=== PATIENT | female | born 1945 | race Two or more races ===

== ENCOUNTER 2017-10-24 04:23 | Inpatient (IN) | payer OTHER, MEDICAID, MEDICARE ==
[2017-10-24] MEDS: ALBUTEROL 0.083% (NEB) 2.5 MG/3 ML AMP NEB (06:21)
[2017-10-24] MEDS: IPRATROPIUM (NEB) 0.5 MG/2.5 ML AMP NEB (06:21)
[2017-10-24] MEDS: NITROGLYCERIN 2% 1 GM OINT PKT TD (06:27)
[2017-10-24 06:49] LABS: ADD MAN DIFF? NO
[2017-10-24 06:54] LABS: BASOPHIL # 0.1 10^3/ul (0.0-0.1); BASOPHILS % 0.4 % (0.0-2.0); EOSINOPHILS # 0.1 10^3/ul (0.0-0.5); HEMOGLOBIN 7.8 g/dl (12.0-16.0); LYMPHOCYTES # 0.8 10^3/ul (0.8-2.9); LYMPHOCYTES % 6.6 % (15.0-51.0); MEAN CORPUSCULAR HEMOGLOBIN 29.1 pg (29.0-33.0); MEAN CORPUSCULAR HGB CONC 31.2 g/dl (32.0-37.0); MEAN CORPUSCULAR VOLUME 93.3 fl (82.0-101.0); MEAN PLATELET VOLUME 11.7 fl (7.4-10.4); MONOCYTE # 0.5 10^3/ul (0.3-0.9); MONOCYTES % 4.2 % (0.0-11.0); NEUTROPHIL # 10.6 10^3/ul (1.6-7.5); NEUTROPHILS % 86.3 % (39.0-77.0); PLATELET COUNT 383 10^3/UL (140-415); RED BLOOD COUNT 2.68 10^6/ul (4.20-5.40); RED CELL DISTRIBUTION WIDTH 16.7 % (11.5-14.5)
[2017-10-24 06:54] LABS: WHITE BLOOD COUNT 12.2 10^3/ul (4.8-10.8)
[2017-10-24 07:10] LABS: LACTIC ACID 1.2 mmol/L (0.5-2.0)
[2017-10-24 07:12] LABS: ALANINE AMINOTRANSFERASE 59 IU/L (13-69); ALBUMIN 3.7 g/dl (3.3-4.9); ALBUMIN/GLOBULIN RATIO 0.82; ALKALINE PHOSPHATASE 195 IU/L (42-121); ANION GAP 25 (8-16); ASPARTATE AMINO TRANSFERASE 68 IU/L (15-46); BLOOD UREA NITROGEN 85 mg/dl (7-20); CALCIUM 8.2 mg/dl (8.4-10.2); CARBON DIOXIDE 20 mmol/L (21-31); CHLORIDE 110 mmol/L (97-110); CREATININE 6.37 mg/dl (0.44-1.00); GLUCOSE 95 mg/dl (70-220); POTASSIUM 4.6 mmol/L (3.5-5.1); SODIUM 150 mmol/L (135-144); TOTAL PROTEIN 8.2 g/dl (6.1-8.1)
[2017-10-24 07:16] LABS: INR 1.07; PT RATIO 1.1
[2017-10-24 07:17] LABS: PARTIAL THROMBOPLASTIN TIME 31.6 Sec (25.0-35.0)
[2017-10-24] MEDS ORDERED: hydrALAzine 20 MG INJ (07:17)
[2017-10-24] MEDS: FUROSEMIDE 40 MG INJ IV ×3 (07:19→18:09)
[2017-10-24] MEDS: hydrALAzine 20 MG INJ IV (07:20)
[2017-10-24 07:24] LABS: TROPONIN-I 0.091 ng/ml (0.00-0.12)
[2017-10-24 07:37] LABS: B-TYPE NATRIURETIC PEPTIDE 46300 PG/ML (0-125)
[2017-10-24] MEDS ORDERED: ACETAMINOPHEN 325 MG TAB PO (08:30)
[2017-10-24] MEDS ORDERED: ONDANSETRON 4 MG INJ IV (09:00)
[2017-10-24] MEDS ORDERED: NACL 0.9% 3 ML SYG IV (09:00)
[2017-10-24] MEDS: DOCUSATE SODIUM 100 MG CAP PO (10:09)
[2017-10-24] MEDS: HYDROCODONE/APAP (5/325) TAB PO ×2 (10:09→16:58)
[2017-10-24] MEDS: HEPARIN 5,000 UNIT/0.5 ML VIAL SC ×2 (10:10→20:35)
[2017-10-24] MEDS: AMLODIPINE 10 MG TAB PO (10:19)
[2017-10-24 10:45] LABS: LACTIC ACID 1.2 mmol/L (0.5-2.0)
[2017-10-24] MEDS: ONDANSETRON 4 MG INJ IV (18:08)
[2017-10-25] MEDS: ONDANSETRON 4 MG TAB PO (06:09)
[2017-10-25] MEDS: METOCLOPRAMIDE 10 MG INJ IV (06:09)
[2017-10-25] MEDS: FUROSEMIDE 40 MG INJ IV ×2 (06:10→17:26)
[2017-10-25 06:30] LABS: ADD MAN DIFF? NO
[2017-10-25 06:34] LABS: WHITE BLOOD COUNT 5.8 10^3/ul (4.8-10.8)
[2017-10-25 06:35] LABS: ABNORMAL IP MESSAGE 1; BASOPHILS % 0.3 % (0.0-2.0); EOSINOPHILS # 0.1 10^3/ul (0.0-0.5); EOSINOPHILS % 2.1 % (0.0-7.0); HEMATOCRIT 21.3 % (37.0-47.0); LYMPHOCYTES # 0.7 10^3/ul (0.8-2.9); LYMPHOCYTES % 11.6 % (15.0-51.0); MEAN CORPUSCULAR HEMOGLOBIN 28.6 pg (29.0-33.0); MEAN CORPUSCULAR HGB CONC 30.5 g/dl (32.0-37.0); MEAN CORPUSCULAR VOLUME 93.8 fl (82.0-101.0); MEAN PLATELET VOLUME 11.2 fl (7.4-10.4); MONOCYTE # 0.6 10^3/ul (0.3-0.9); NEUTROPHIL # 4.4 10^3/ul (1.6-7.5); NEUTROPHILS % 75.7 % (39.0-77.0); PLATELET COUNT 286 10^3/UL (140-415); RED BLOOD COUNT 2.27 10^6/ul (4.20-5.40); RED CELL DISTRIBUTION WIDTH 16.6 % (11.5-14.5)
[2017-10-25 06:57] LABS: ALANINE AMINOTRANSFERASE 40 IU/L (13-69); ALBUMIN 2.9 g/dl (3.3-4.9); ALKALINE PHOSPHATASE 126 IU/L (42-121); ASPARTATE AMINO TRANSFERASE 30 IU/L (15-46); TOTAL PROTEIN 6.7 g/dl (6.1-8.1)
[2017-10-25 07:00] LABS: ANION GAP 17 (8-16); BLOOD UREA NITROGEN 81 mg/dl (7-20); CALCIUM 7.9 mg/dl (8.4-10.2); CARBON DIOXIDE 23 mmol/L (21-31); CHLORIDE 108 mmol/L (97-110); CREATININE 6.04 mg/dl (0.44-1.00); GLUCOSE 88 mg/dl (70-220); MAGNESIUM 2.1 mg/dl (1.7-2.5); POTASSIUM 4.4 mmol/L (3.5-5.1); SODIUM 144 mmol/L (135-144)
[2017-10-25 07:05] LABS: POSITIVE DIFF @See below
[2017-10-25 07:07] LABS: HEMOGLOBIN 6.5 g/dl (12.0-16.0)
[2017-10-25 07:08] LABS: PATH REVIEW? YES
[2017-10-25] MEDS ORDERED: FUROSEMIDE 20 MG INJ IV (07:30)
[2017-10-25] MEDS: DOCUSATE SODIUM 100 MG CAP PO (09:20)
[2017-10-25] MEDS: AMLODIPINE 10 MG TAB PO (09:21)
[2017-10-25] MEDS: HEPARIN 5,000 UNIT/0.5 ML VIAL SC ×2 (09:26→21:33)
[2017-10-25 10:28] LABS: IMMEDIATE SPIN CROSSMATCH 1 2
[2017-10-25] MEDS: FUROSEMIDE 20 MG INJ IV (14:21)
[2017-10-25] MEDS: CALCIUM ACETATE 667 MG CAP PO (18:05)
[2017-10-25 18:30] LABS: FOLATE 18.2 ng/ml (2.8-20.0)
[2017-10-25 19:01] LABS: CREATININE,URINE RANDOM 38.62 mg/dl (20-320)
[2017-10-25 19:08] LABS: ADD UMIC YES; UR ASCORBIC ACID NEGATIVE (NEGATIVE); UR BACTERIA FEW /HPF (NONE SEEN); UR BILIRUBIN (Dip) NEGATIVE (NEGATIVE); UR BLOOD (Dip) 2+ mg/dL (NEGATIVE); UR CLARITY CLEAR (CLEAR); UR COLOR STRAW (YELLOW); UR GLUCOSE (Dip) NEGATIVE (NEGATIVE); UR KETONES (Dip) NEGATIVE (NEGATIVE); UR LEUKOCYTE ESTERASE (Dip) TRACE Leu/ul (NEGATIVE); UR NITRITE (Dip) NEGATIVE (NEGATIVE); UR RBC 32 /HPF (0-5); UR SPECIFIC GRAVITY (Dip) 1.009 (1.003-1.030); UR SQUAMOUS EPITHELIAL CELL FEW /HPF (FEW); UR TOTAL PROTEIN (Dip) 2+ mg/dl (NEGATIVE); UR UROBILINOGEN (Dip) NEGATIVE (NEGATIVE); UR WBC 2 /HPF (0-5)
[2017-10-25 19:11] LABS: SODIUM,URINE RANDOM 79 mmol/L (30-90)
[2017-10-25 19:29] LABS: OPIATES Negative (NEGATIVE)
[2017-10-25 19:41] LABS: AMPHETAMINE/METHAMPHETAMINE Negative (NEGATIVE); BARBITURATES Negative (NEGATIVE); BENZODIAZEPINES Negative (NEGATIVE)
[2017-10-25 19:42] LABS: CANNABINOIDS Negative (NEGATIVE); COCAINE Negative (NEGATIVE)
[2017-10-25] MEDS: ALBUTEROL/IPRATROPIUM (NEB) 3 ML AMP HHN (20:50)
[2017-10-26] MEDS: ALBUTEROL/IPRATROPIUM (NEB) 3 ML AMP HHN ×4 (01:14→21:00)
[2017-10-26] MEDS: FUROSEMIDE 40 MG INJ IV ×2 (06:07→17:55)
[2017-10-26 07:43] LABS: ADD MAN DIFF? NO; HAAIG REFLEX REFLEX FILED
[2017-10-26 07:51] LABS: BASOPHILS % 0.5 % (0.0-2.0); EOSINOPHILS # 0.2 10^3/ul (0.0-0.5); EOSINOPHILS % 3.2 % (0.0-7.0); HEMATOCRIT 28.6 % (37.0-47.0); HEMOGLOBIN 9.2 g/dl (12.0-16.0); LYMPHOCYTES % 16.8 % (15.0-51.0); MEAN CORPUSCULAR HEMOGLOBIN 29.6 pg (29.0-33.0); MEAN CORPUSCULAR HGB CONC 32.2 g/dl (32.0-37.0); MEAN PLATELET VOLUME 10.9 fl (7.4-10.4); MONOCYTE # 0.8 10^3/ul (0.3-0.9); MONOCYTES % 13.8 % (0.0-11.0); NEUTROPHIL # 3.9 10^3/ul (1.6-7.5); NEUTROPHILS % 65.4 % (39.0-77.0); PLATELET COUNT 285 10^3/UL (140-415); RED BLOOD COUNT 3.11 10^6/ul (4.20-5.40); RETICULOCYTE COUNT # 0.047 X10^6 (0.020-0.110); RETICULOCYTE COUNT % 1.6 % (0.5-1.5)
[2017-10-26 07:51] LABS: RETICULOCYTE RBC 3.01
[2017-10-26 08:06] LABS: IRON 54 ug/dl (35-150)
[2017-10-26 08:08] LABS: PHOSPHORUS 8.4 mg/dl (2.5-4.9)
[2017-10-26 08:08] LABS: CREATINE KINASE 70 IU/L (23-200)
[2017-10-26 08:09] LABS: URIC ACID 10.2 mg/dl (3.1-7.9)
[2017-10-26 08:09] LABS: ANION GAP 17 (8-16); BLOOD UREA NITROGEN 90 mg/dl (7-20); CALCIUM 7.6 mg/dl (8.4-10.2); CARBON DIOXIDE 25 mmol/L (21-31); CHLORIDE 107 mmol/L (97-110); CREATININE 6.62 mg/dl (0.44-1.00); GLUCOSE 87 mg/dl (70-220); SODIUM 145 mmol/L (135-144)
[2017-10-26 08:20] LABS: B-TYPE NATRIURETIC PEPTIDE 23600 PG/ML (0-125)
[2017-10-26 08:21] LABS: % IRON SATURATION 19 % SAT (22-52); TOTAL IRON BINDING CAPACITY 283 ug/dl (241-421)
[2017-10-26 08:38] LABS: HEPATITIS B SURFACE ANTIGEN NEGATIVE (NEGATIVE)
[2017-10-26 08:56] LABS: HEPATITIS C VIRAL ANTIBODY NEGATIVE (NEGATIVE)
[2017-10-26] MEDS: AMLODIPINE 10 MG TAB PO (08:59)
[2017-10-26] MEDS: DOCUSATE SODIUM 100 MG CAP PO (08:59)
[2017-10-26] MEDS: CALCIUM ACETATE 667 MG CAP PO ×3 (09:00→17:55)
[2017-10-26] MEDS: HEPARIN 5,000 UNIT/0.5 ML VIAL SC ×2 (09:01→21:39)
[2017-10-26] MEDS: HYDROCODONE/APAP (5/325) TAB PO (09:05)
[2017-10-26 13:06] LABS: HEPATITIS B CORE ANTIBODY REACTIVE (NEGATIVE)
[2017-10-26] MEDS ORDERED: TRIMETHOBENZAMIDE 100 MG/ML VIAL IM (14:30)
[2017-10-26] MEDS ORDERED: ONDANSETRON 4 MG INJ IV (15:00)
[2017-10-26] MEDS ORDERED: ONDANSETRON INJ 8 MG in DEXTROSE 5% 50 ML IV (15:00)
[2017-10-26] MEDS: POLYETHYLENE GLYCOL 17 GM PACKET PO (15:22)
[2017-10-26 15:56] LABS: CREATININE, RANDOM URINE 49 mg/dL (20-320); MICROALBUMIN 55.2 mg/dL; MICROALBUMIN/CREATININE RATIO 1127 (<30)
[2017-10-26] MEDS: ALLOPURINOL 300 MG TAB PO (17:54)
[2017-10-27] MEDS: ALBUTEROL/IPRATROPIUM (NEB) 3 ML AMP HHN ×6 (01:00→20:39)
[2017-10-27] MEDS: FUROSEMIDE 40 MG INJ IV ×2 (06:53→17:38)
[2017-10-27] MEDS: ALLOPURINOL 300 MG TAB PO (08:17)
[2017-10-27] MEDS: CALCIUM ACETATE 667 MG CAP PO ×3 (08:18→17:38)
[2017-10-27] MEDS: DOCUSATE SODIUM 100 MG CAP PO (08:18)
[2017-10-27] MEDS: AMLODIPINE 10 MG TAB PO (08:18)
[2017-10-27] MEDS: POLYETHYLENE GLYCOL 17 GM PACKET PO (08:19)
[2017-10-27] MEDS: HEPARIN 5,000 UNIT/0.5 ML VIAL SC ×2 (08:21→20:58)
[2017-10-27 08:30] LABS: ADD MAN DIFF? NO
[2017-10-27 08:33] LABS: BASOPHILS % 0.5 % (0.0-2.0); EOSINOPHILS # 0.2 10^3/ul (0.0-0.5); EOSINOPHILS % 3.6 % (0.0-7.0); HEMATOCRIT 31.4 % (37.0-47.0); HEMOGLOBIN 9.9 g/dl (12.0-16.0); LYMPHOCYTES # 0.8 10^3/ul (0.8-2.9); LYMPHOCYTES % 14.5 % (15.0-51.0); MEAN CORPUSCULAR HEMOGLOBIN 29.2 pg (29.0-33.0); MEAN CORPUSCULAR HGB CONC 31.5 g/dl (32.0-37.0); MEAN CORPUSCULAR VOLUME 92.6 fl (82.0-101.0); MEAN PLATELET VOLUME 11.1 fl (7.4-10.4); MONOCYTE # 0.7 10^3/ul (0.3-0.9); MONOCYTES % 11.4 % (0.0-11.0); NEUTROPHIL # 4.1 10^3/ul (1.6-7.5); NEUTROPHILS % 69.7 % (39.0-77.0); PLATELET COUNT 327 10^3/UL (140-415); RED BLOOD COUNT 3.39 10^6/ul (4.20-5.40); RED CELL DISTRIBUTION WIDTH 15.8 % (11.5-14.5)
[2017-10-27 08:33] LABS: WHITE BLOOD COUNT 5.8 10^3/ul (4.8-10.8)
[2017-10-27 08:55] LABS: ANION GAP 18 (8-16); BLOOD UREA NITROGEN 93 mg/dl (7-20); CALCIUM 8.4 mg/dl (8.4-10.2); CARBON DIOXIDE 28 mmol/L (21-31); CHLORIDE 104 mmol/L (97-110); CREATININE 6.65 mg/dl (0.44-1.00); GLUCOSE 92 mg/dl (70-220); POTASSIUM 4.2 mmol/L (3.5-5.1); SODIUM 146 mmol/L (135-144)
[2017-10-27 12:22] LABS: INR 1.07; PT RATIO 1.1
[2017-10-27] MEDS ORDERED: SODIUM CHLORIDE 0.9% 1L BAG IV (12:30)
[2017-10-27] MEDS ORDERED: ALBUMIN HUMAN 25% 50 ML IV (12:30)
[2017-10-27] MEDS ORDERED: MANNITOL 25% 50 ML IV (12:30)
[2017-10-27] MEDS ORDERED: HEPARIN 1000 UNITS/ML 10 ML INJ CATHETER (12:30)
[2017-10-27] MEDS: GUAIFENESIN 20 MG/ML 5ML CUP PO (13:03)
[2017-10-27] MEDS: CEPASTAT LOZENGE MT (20:53)
[2017-10-28] MEDS: ALBUTEROL/IPRATROPIUM (NEB) 3 ML AMP HHN ×6 (00:58→20:00)
[2017-10-28] MEDS: FUROSEMIDE 40 MG INJ IV ×2 (06:05→17:06)
[2017-10-28] MEDS: CALCIUM ACETATE 667 MG CAP PO ×3 (08:00→17:17)
[2017-10-28 08:45] LABS: ADD MAN DIFF? NO
[2017-10-28] MEDS: DOCUSATE SODIUM 100 MG CAP PO (09:00)
[2017-10-28] MEDS: AMLODIPINE 10 MG TAB PO (09:00)
[2017-10-28] MEDS: POLYETHYLENE GLYCOL 17 GM PACKET PO (09:00)
[2017-10-28] MEDS: ALLOPURINOL 300 MG TAB PO (09:00)
[2017-10-28] MEDS: HEPARIN 5,000 UNIT/0.5 ML VIAL SC ×2 (09:00→19:57)
[2017-10-28 09:06] LABS: BASOPHILS % 0.4 % (0.0-2.0); EOSINOPHILS # 0.3 10^3/ul (0.0-0.5); EOSINOPHILS % 4.6 % (0.0-7.0); HEMATOCRIT 31.9 % (37.0-47.0); LYMPHOCYTES # 0.9 10^3/ul (0.8-2.9); LYMPHOCYTES % 16.7 % (15.0-51.0); MEAN CORPUSCULAR HEMOGLOBIN 29.3 pg (29.0-33.0); MEAN CORPUSCULAR HGB CONC 31.3 g/dl (32.0-37.0); MEAN CORPUSCULAR VOLUME 93.5 fl (82.0-101.0); MEAN PLATELET VOLUME 11.1 fl (7.4-10.4); MONOCYTE # 0.7 10^3/ul (0.3-0.9); MONOCYTES % 13.2 % (0.0-11.0); NEUTROPHIL # 3.5 10^3/ul (1.6-7.5); NEUTROPHILS % 64.7 % (39.0-77.0); PLATELET COUNT 307 10^3/UL (140-415); RED BLOOD COUNT 3.41 10^6/ul (4.20-5.40); RED CELL DISTRIBUTION WIDTH 15.3 % (11.5-14.5)
[2017-10-28 09:06] LABS: WHITE BLOOD COUNT 5.4 10^3/ul (4.8-10.8)
[2017-10-28 09:24] LABS: ANION GAP 17 (8-16); BLOOD UREA NITROGEN 102 mg/dl (7-20); CALCIUM 8.6 mg/dl (8.4-10.2); CARBON DIOXIDE 27 mmol/L (21-31); CHLORIDE 103 mmol/L (97-110); CREATININE 6.66 mg/dl (0.44-1.00); GLUCOSE 87 mg/dl (70-220); POTASSIUM 4.3 mmol/L (3.5-5.1); SODIUM 143 mmol/L (135-144)
[2017-10-28] MEDS: HEPARIN 1000 UNITS/ML 10 ML INJ (13:13)
[2017-10-28] MEDS: SOD CHLORIDE 0.9% 0 ML (13:13)
[2017-10-28] MEDS: LIDOCAINE 1% (MDV) 20 ML INJ (13:13)
[2017-10-28] MEDS: hydrALAzine 20 MG INJ IV (17:06)
[2017-10-28] MEDS: GUAIFENESIN 20 MG/ML 5ML CUP PO (17:17)
[2017-10-28] MEDS ORDERED: SODIUM CHLORIDE 0.9% 1L BAG IV (19:00)
[2017-10-29] MEDS: ALBUTEROL/IPRATROPIUM (NEB) 3 ML AMP HHN ×6 (01:01→20:44)
[2017-10-29] MEDS: FUROSEMIDE 40 MG INJ IV (05:25)
[2017-10-29 07:58] LABS: ADD MAN DIFF? NO
[2017-10-29] MEDS: CALCIUM ACETATE 667 MG CAP PO ×3 (08:00→18:56)
[2017-10-29 08:02] LABS: WHITE BLOOD COUNT 5.8 10^3/ul (4.8-10.8)
[2017-10-29 08:02] LABS: BASOPHILS % 0.5 % (0.0-2.0); EOSINOPHILS # 0.2 10^3/ul (0.0-0.5); EOSINOPHILS % 3.6 % (0.0-7.0); HEMATOCRIT 32.4 % (37.0-47.0); MEAN CORPUSCULAR HGB CONC 30.9 g/dl (32.0-37.0); MEAN CORPUSCULAR VOLUME 93.9 fl (82.0-101.0); MEAN PLATELET VOLUME 10.6 fl (7.4-10.4); MONOCYTE # 0.8 10^3/ul (0.3-0.9); MONOCYTES % 12.9 % (0.0-11.0); NEUTROPHIL # 3.8 10^3/ul (1.6-7.5); NEUTROPHILS % 65.7 % (39.0-77.0); PLATELET COUNT 316 10^3/UL (140-415); RED BLOOD COUNT 3.45 10^6/ul (4.20-5.40); RED CELL DISTRIBUTION WIDTH 15.4 % (11.5-14.5)
[2017-10-29 08:22] LABS: ANION GAP 19 (8-16); BLOOD UREA NITROGEN 107 mg/dl (7-20); CARBON DIOXIDE 27 mmol/L (21-31); CHLORIDE 105 mmol/L (97-110); CREATININE 6.98 mg/dl (0.44-1.00); GLUCOSE 89 mg/dl (70-220); POTASSIUM 4.6 mmol/L (3.5-5.1); SODIUM 146 mmol/L (135-144)
[2017-10-29] MEDS: AMLODIPINE 10 MG TAB PO (08:46)
[2017-10-29] MEDS: POLYETHYLENE GLYCOL 17 GM PACKET PO (08:46)
[2017-10-29] MEDS: DOCUSATE SODIUM 100 MG CAP PO (08:46)
[2017-10-29] MEDS: ALLOPURINOL 300 MG TAB PO (08:46)
[2017-10-29] MEDS: HEPARIN 5,000 UNIT/0.5 ML VIAL SC ×2 (08:48→21:01)
[2017-10-29] MEDS: CEFAZOLIN 1 GM/50 ML (PMX) 50 ML IVPB ×2 (11:07→11:31)
[2017-10-29] MEDS: LIDOCAINE 1% (MDV) 20 ML INJ (11:07)
[2017-10-29] MEDS: SOD CHLORIDE 0.9% 250 ML (11:07)
[2017-10-29] MEDS: HEPARIN 1000 UNITS/ML 10 ML INJ (11:07)
[2017-10-29] MEDS: LIDOCAINE 1% (MPF) 5 ML VIAL (11:29)
[2017-10-29] MEDS: FENTAnyl 50 MCG/ML VIAL (11:29)
[2017-10-29] MEDS: MIDAZOLAM 1 MG/ML 2 ML INJ (11:29)
[2017-10-29] MEDS: PROPOFOL 20 ML (11:29)
[2017-10-29] MEDS ORDERED: FENTAnyl 50 MCG/ML VIAL IV (13:30)
[2017-10-29] MEDS ORDERED: SOD CHLORIDE 0.9% 1,000 ML IV (18:33)
[2017-10-29 18:34] LABS: HEPATITIS B SURFACE ANTIBODY POSITIVE (NEGATIVE)
[2017-10-29] MEDS ORDERED: HEPARIN 1000 UNITS/ML 10 ML INJ CATHETER (19:00)
[2017-10-29] MEDS ORDERED: SODIUM CHLORIDE 0.9% 1L BAG IV (19:00)
[2017-10-29] MEDS ORDERED: ALBUMIN HUMAN 25% 50 ML IV (19:00)
[2017-10-29] MEDS: hydrALAzine 20 MG INJ IV (21:00)
[2017-10-29] MEDS ORDERED: HYDROCODONE/APAP (5/325) TAB PO (23:30)
[2017-10-29] MEDS: ACETAMINOPHEN 325 MG TAB PO (23:53)
[2017-10-29] MEDS: GUAIFENESIN 20 MG/ML 5ML CUP PO (23:55)
[2017-10-30] MEDS: ALBUTEROL/IPRATROPIUM (NEB) 3 ML AMP HHN ×6 (00:18→22:31)
[2017-10-30] MEDS: GUAIFENESIN 20 MG/ML 5ML CUP PO ×2 (06:03→20:36)
[2017-10-30 07:03] LABS: ADD MAN DIFF? NO
[2017-10-30 07:10] LABS: BASOPHILS % 0.4 % (0.0-2.0); EOSINOPHILS # 0.2 10^3/ul (0.0-0.5); EOSINOPHILS % 4.3 % (0.0-7.0); HEMATOCRIT 34.1 % (37.0-47.0); HEMOGLOBIN 10.6 g/dl (12.0-16.0); LYMPHOCYTES # 0.9 10^3/ul (0.8-2.9); LYMPHOCYTES % 16.1 % (15.0-51.0); MEAN CORPUSCULAR HGB CONC 31.1 g/dl (32.0-37.0); MEAN CORPUSCULAR VOLUME 93.4 fl (82.0-101.0); MEAN PLATELET VOLUME 10.9 fl (7.4-10.4); MONOCYTE # 0.6 10^3/ul (0.3-0.9); MONOCYTES % 11.1 % (0.0-11.0); NEUTROPHIL # 3.7 10^3/ul (1.6-7.5); NEUTROPHILS % 67.7 % (39.0-77.0); PLATELET COUNT 303 10^3/UL (140-415); RED BLOOD COUNT 3.65 10^6/ul (4.20-5.40); RED CELL DISTRIBUTION WIDTH 15.5 % (11.5-14.5)
[2017-10-30 07:10] LABS: WHITE BLOOD COUNT 5.5 10^3/ul (4.8-10.8)
[2017-10-30 07:25] LABS: ANION GAP 16 (8-16); BLOOD UREA NITROGEN 65 mg/dl (7-20); CALCIUM 9.1 mg/dl (8.4-10.2); CARBON DIOXIDE 25 mmol/L (21-31); CHLORIDE 107 mmol/L (97-110); CREATININE 4.52 mg/dl (0.44-1.00); GLUCOSE 101 mg/dl (70-220); POTASSIUM 4.7 mmol/L (3.5-5.1); SODIUM 143 mmol/L (135-144)
[2017-10-30] MEDS: AMLODIPINE 10 MG TAB PO (09:03)
[2017-10-30] MEDS: DOCUSATE SODIUM 100 MG CAP PO (09:03)
[2017-10-30] MEDS: POLYETHYLENE GLYCOL 17 GM PACKET PO (09:03)
[2017-10-30] MEDS: CALCIUM ACETATE 667 MG CAP PO ×3 (09:03→17:22)
[2017-10-30] MEDS: ALLOPURINOL 300 MG TAB PO (09:04)
[2017-10-30] MEDS: FUROSEMIDE 40 MG INJ IV (09:04)
[2017-10-30] MEDS: HEPARIN 5,000 UNIT/0.5 ML VIAL SC ×2 (09:16→20:40)
[2017-10-30] MEDS ORDERED: SODIUM CHLORIDE 0.9% 500 ML BAG IV (17:52)
[2017-10-30] MEDS ORDERED: SOD CHLORIDE 0.9% 1,000 ML IV (18:00)
[2017-10-30] MEDS ORDERED: SOD CHLORIDE 0.9% 500 ML IV (18:00)
[2017-10-30 18:02] LABS: OCCULT BLOOD STOOL NEGATIVE (NEGATIVE)
[2017-10-31] MEDS: ALBUTEROL/IPRATROPIUM (NEB) 3 ML AMP HHN ×6 (01:00→21:00)
[2017-10-31] MEDS: MANNITOL 25% 50 ML IV ×2 (02:17→22:43)
[2017-10-31 08:24] LABS: ANION GAP 14 (8-16); BLOOD UREA NITROGEN 48 mg/dl (7-20); CALCIUM 8.9 mg/dl (8.4-10.2); CARBON DIOXIDE 27 mmol/L (21-31); CHLORIDE 102 mmol/L (97-110); CREATININE 3.53 mg/dl (0.44-1.00); GLUCOSE 91 mg/dl (70-220); PHOSPHORUS 4.2 mg/dl (2.5-4.9); POTASSIUM 4.2 mmol/L (3.5-5.1); SODIUM 139 mmol/L (135-144)
[2017-10-31] MEDS: AMLODIPINE 10 MG TAB PO (09:04)
[2017-10-31] MEDS: CALCIUM ACETATE 667 MG CAP PO ×3 (09:05→17:55)
[2017-10-31] MEDS: DOCUSATE SODIUM 100 MG CAP PO (09:05)
[2017-10-31] MEDS: ALLOPURINOL 300 MG TAB PO (09:06)
[2017-10-31] MEDS: FUROSEMIDE 40 MG INJ IV (09:06)
[2017-10-31] MEDS: POLYETHYLENE GLYCOL 17 GM PACKET PO (09:07)
[2017-10-31] MEDS: HEPARIN 5,000 UNIT/0.5 ML VIAL SC ×2 (09:15→21:06)
[2017-11-01] MEDS: HEPARIN 1000 UNITS/ML 10 ML INJ CATHETER (00:11)
[2017-11-01] MEDS: ALBUTEROL/IPRATROPIUM (NEB) 3 ML AMP HHN ×6 (01:11→20:07)
[2017-11-01] MEDS: CALCIUM ACETATE 667 MG CAP PO ×3 (08:22→17:51)
[2017-11-01] MEDS: FUROSEMIDE 40 MG INJ IV (08:34)
[2017-11-01] MEDS: DOCUSATE SODIUM 100 MG CAP PO (08:34)
[2017-11-01] MEDS: ALLOPURINOL 300 MG TAB PO (08:35)
[2017-11-01] MEDS: AMLODIPINE 10 MG TAB PO (08:35)
[2017-11-01] MEDS: HEPARIN 5,000 UNIT/0.5 ML VIAL SC ×2 (08:37→21:26)
[2017-11-01] MEDS: POLYETHYLENE GLYCOL 17 GM PACKET PO (08:39)
[2017-11-01 08:52] LABS: ADD MAN DIFF? NO
[2017-11-01 09:01] LABS: WHITE BLOOD COUNT 5.3 10^3/ul (4.8-10.8)
[2017-11-01 09:01] LABS: BASOPHILS % 0.8 % (0.0-2.0); EOSINOPHILS # 0.1 10^3/ul (0.0-0.5); EOSINOPHILS % 2.5 % (0.0-7.0); HEMATOCRIT 32.9 % (37.0-47.0); HEMOGLOBIN 10.4 g/dl (12.0-16.0); LYMPHOCYTES # 0.9 10^3/ul (0.8-2.9); MEAN CORPUSCULAR HEMOGLOBIN 29.2 pg (29.0-33.0); MEAN CORPUSCULAR HGB CONC 31.6 g/dl (32.0-37.0); MEAN CORPUSCULAR VOLUME 92.4 fl (82.0-101.0); MEAN PLATELET VOLUME 11.3 fl (7.4-10.4); MONOCYTE # 0.5 10^3/ul (0.3-0.9); MONOCYTES % 9.8 % (0.0-11.0); NEUTROPHIL # 3.7 10^3/ul (1.6-7.5); NEUTROPHILS % 69.5 % (39.0-77.0); PLATELET COUNT 253 10^3/UL (140-415); RED BLOOD COUNT 3.56 10^6/ul (4.20-5.40); RED CELL DISTRIBUTION WIDTH 14.9 % (11.5-14.5)
[2017-11-01 09:23] LABS: ANION GAP 13 (8-16); BLOOD UREA NITROGEN 40 mg/dl (7-20); CALCIUM 9.1 mg/dl (8.4-10.2); CARBON DIOXIDE 28 mmol/L (21-31); CHLORIDE 103 mmol/L (97-110); GLUCOSE 83 mg/dl (70-220); POTASSIUM 4.5 mmol/L (3.5-5.1); SODIUM 139 mmol/L (135-144)
[2017-11-01] MEDS: FUROSEMIDE 40 MG TAB PO (17:51)
[2017-11-01] MEDS: GUAIFENESIN 20 MG/ML 5ML CUP PO (17:54)
[2017-11-02] MEDS: ALBUTEROL/IPRATROPIUM (NEB) 3 ML AMP HHN ×6 (00:10→21:00)
[2017-11-02 05:16] LABS: ADD MAN DIFF? NO
[2017-11-02 05:19] LABS: BASOPHILS % 0.5 % (0.0-2.0); EOSINOPHILS # 0.2 10^3/ul (0.0-0.5); EOSINOPHILS % 3.7 % (0.0-7.0); HEMATOCRIT 31.8 % (37.0-47.0); LYMPHOCYTES # 1.5 10^3/ul (0.8-2.9); LYMPHOCYTES % 25.6 % (15.0-51.0); MEAN CORPUSCULAR HEMOGLOBIN 29.1 pg (29.0-33.0); MEAN CORPUSCULAR HGB CONC 31.4 g/dl (32.0-37.0); MEAN CORPUSCULAR VOLUME 92.4 fl (82.0-101.0); MEAN PLATELET VOLUME 11.3 fl (7.4-10.4); MONOCYTE # 0.8 10^3/ul (0.3-0.9); MONOCYTES % 13.8 % (0.0-11.0); NEUTROPHIL # 3.2 10^3/ul (1.6-7.5); NEUTROPHILS % 55.9 % (39.0-77.0); PLATELET COUNT 250 10^3/UL (140-415); RED BLOOD COUNT 3.44 10^6/ul (4.20-5.40); RED CELL DISTRIBUTION WIDTH 14.7 % (11.5-14.5)
[2017-11-02 05:19] LABS: WHITE BLOOD COUNT 5.7 10^3/ul (4.8-10.8)
[2017-11-02] MEDS: FUROSEMIDE 40 MG TAB PO ×2 (05:47→17:47)
[2017-11-02 05:52] LABS: ANION GAP 16 (8-16); BLOOD UREA NITROGEN 64 mg/dl (7-20); CARBON DIOXIDE 28 mmol/L (21-31); CHLORIDE 99 mmol/L (97-110); CREATININE 4.88 mg/dl (0.44-1.00); GLUCOSE 80 mg/dl (70-220); POTASSIUM 4.7 mmol/L (3.5-5.1); SODIUM 138 mmol/L (135-144)
[2017-11-02] MEDS: AMLODIPINE 10 MG TAB PO (09:00)
[2017-11-02] MEDS: POLYETHYLENE GLYCOL 17 GM PACKET PO (09:52)
[2017-11-02] MEDS: CALCIUM ACETATE 667 MG CAP PO ×3 (09:52→17:55)
[2017-11-02] MEDS: ALLOPURINOL 300 MG TAB PO (09:52)
[2017-11-02] MEDS: DOCUSATE SODIUM 100 MG CAP PO (09:52)
[2017-11-02] MEDS: HEPARIN 5,000 UNIT/0.5 ML VIAL SC ×2 (09:58→21:37)
[2017-11-02] MEDS: ACETAMINOPHEN 325 MG TAB PO (21:38)
[2017-11-03] MEDS: ALBUTEROL/IPRATROPIUM (NEB) 3 ML AMP HHN ×6 (00:35→20:29)
[2017-11-03 05:13] LABS: ADD MAN DIFF? NO
[2017-11-03 05:22] LABS: WHITE BLOOD COUNT 5.5 10^3/ul (4.8-10.8)
[2017-11-03 05:22] LABS: BASOPHILS % 0.7 % (0.0-2.0); EOSINOPHILS # 0.2 10^3/ul (0.0-0.5); EOSINOPHILS % 2.9 % (0.0-7.0); HEMATOCRIT 32.9 % (37.0-47.0); HEMOGLOBIN 10.5 g/dl (12.0-16.0); LYMPHOCYTES # 1.2 10^3/ul (0.8-2.9); LYMPHOCYTES % 22.8 % (15.0-51.0); MEAN CORPUSCULAR HEMOGLOBIN 29.2 pg (29.0-33.0); MEAN CORPUSCULAR HGB CONC 31.9 g/dl (32.0-37.0); MEAN CORPUSCULAR VOLUME 91.6 fl (82.0-101.0); MEAN PLATELET VOLUME 11.6 fl (7.4-10.4); MONOCYTE # 0.9 10^3/ul (0.3-0.9); MONOCYTES % 16.3 % (0.0-11.0); NEUTROPHIL # 3.1 10^3/ul (1.6-7.5); NEUTROPHILS % 56.9 % (39.0-77.0); PLATELET COUNT 242 10^3/UL (140-415); RED BLOOD COUNT 3.59 10^6/ul (4.20-5.40); RED CELL DISTRIBUTION WIDTH 14.8 % (11.5-14.5)
[2017-11-03 05:38] LABS: ANION GAP 16 (8-16); BLOOD UREA NITROGEN 37 mg/dl (7-20); CALCIUM 9.2 mg/dl (8.4-10.2); CARBON DIOXIDE 27 mmol/L (21-31); CHLORIDE 102 mmol/L (97-110); CREATININE 3.57 mg/dl (0.44-1.00); GLUCOSE 88 mg/dl (70-220); POTASSIUM 4.6 mmol/L (3.5-5.1); SODIUM 140 mmol/L (135-144)
[2017-11-03] MEDS: FUROSEMIDE 40 MG TAB PO ×2 (05:55→17:34)
[2017-11-03] MEDS: DOCUSATE SODIUM 100 MG CAP PO (08:38)
[2017-11-03] MEDS: ALLOPURINOL 300 MG TAB PO (08:38)
[2017-11-03] MEDS: POLYETHYLENE GLYCOL 17 GM PACKET PO (08:38)
[2017-11-03] MEDS: CALCIUM ACETATE 667 MG CAP PO ×3 (08:38→17:32)
[2017-11-03] MEDS: AMLODIPINE 10 MG TAB PO (08:39)
[2017-11-03] MEDS: HEPARIN 5,000 UNIT/0.5 ML VIAL SC ×2 (08:42→21:06)
[2017-11-03] MEDS ORDERED: SODIUM CHLORIDE 0.9% 1L BAG IV (17:00)
[2017-11-03] MEDS ORDERED: ALBUMIN HUMAN 25% 50 ML IV (17:00)
[2017-11-03] MEDS: GUAIFENESIN 20 MG/ML 5ML CUP PO (21:00)
[2017-11-04] MEDS: ALBUTEROL/IPRATROPIUM (NEB) 3 ML AMP HHN ×6 (01:22→20:22)
[2017-11-04] MEDS: FUROSEMIDE 40 MG TAB PO ×2 (04:03→10:54)
[2017-11-04 05:56] LABS: ADD MAN DIFF? NO
[2017-11-04 06:00] LABS: BASOPHILS % 0.7 % (0.0-2.0); EOSINOPHILS # 0.2 10^3/ul (0.0-0.5); EOSINOPHILS % 3.9 % (0.0-7.0); HEMATOCRIT 32.1 % (37.0-47.0); HEMOGLOBIN 10.2 g/dl (12.0-16.0); LYMPHOCYTES # 1.4 10^3/ul (0.8-2.9); LYMPHOCYTES % 22.1 % (15.0-51.0); MEAN CORPUSCULAR HEMOGLOBIN 29.1 pg (29.0-33.0); MEAN CORPUSCULAR HGB CONC 31.8 g/dl (32.0-37.0); MEAN CORPUSCULAR VOLUME 91.5 fl (82.0-101.0); MEAN PLATELET VOLUME 12.2 fl (7.4-10.4); MONOCYTE # 0.9 10^3/ul (0.3-0.9); MONOCYTES % 14.6 % (0.0-11.0); NEUTROPHIL # 3.6 10^3/ul (1.6-7.5); NEUTROPHILS % 58.2 % (39.0-77.0); PLATELET COUNT 242 10^3/UL (140-415); RED BLOOD COUNT 3.51 10^6/ul (4.20-5.40); RED CELL DISTRIBUTION WIDTH 14.7 % (11.5-14.5)
[2017-11-04 06:00] LABS: WHITE BLOOD COUNT 6.1 10^3/ul (4.8-10.8)
[2017-11-04 06:47] LABS: ANION GAP 16 (8-16); BLOOD UREA NITROGEN 67 mg/dl (7-20); CALCIUM 9.3 mg/dl (8.4-10.2); CARBON DIOXIDE 27 mmol/L (21-31); CHLORIDE 98 mmol/L (97-110); CREATININE 5.26 mg/dl (0.44-1.00); GLUCOSE 91 mg/dl (70-220); POTASSIUM 5.2 mmol/L (3.5-5.1); SODIUM 136 mmol/L (135-144)
[2017-11-04] MEDS: AMLODIPINE 10 MG TAB PO (07:36)
[2017-11-04] MEDS: CALCIUM ACETATE 667 MG CAP PO ×3 (09:02→16:58)
[2017-11-04] MEDS: ALLOPURINOL 300 MG TAB PO (09:02)
[2017-11-04] MEDS: DOCUSATE SODIUM 100 MG CAP PO (09:02)
[2017-11-04] MEDS: POLYETHYLENE GLYCOL 17 GM PACKET PO (09:02)
[2017-11-04] MEDS: HEPARIN 5,000 UNIT/0.5 ML VIAL SC ×2 (09:05→21:30)
[2017-11-04] MEDS: ALBUMIN HUMAN 25% 100 ML IV (12:00)
[2017-11-04] MEDS: HEPARIN 1000 UNITS/ML 10 ML INJ CATHETER (12:58)
[2017-11-04] MEDS ORDERED: CEPASTAT LOZENGE MT (14:00)
[2017-11-04] MEDS: LISINOPRIL 5 MG TAB PO (16:59)
[2017-11-05] MEDS: ALBUTEROL/IPRATROPIUM (NEB) 3 ML AMP HHN ×6 (00:32→21:16)
[2017-11-05 05:38] LABS: ADD MAN DIFF? NO
[2017-11-05 05:47] LABS: WHITE BLOOD COUNT 6.4 10^3/ul (4.8-10.8)
[2017-11-05 05:47] LABS: BASOPHILS % 0.6 % (0.0-2.0); EOSINOPHILS # 0.2 10^3/ul (0.0-0.5); HEMATOCRIT 31.6 % (37.0-47.0); HEMOGLOBIN 10.1 g/dl (12.0-16.0); LYMPHOCYTES # 1.3 10^3/ul (0.8-2.9); LYMPHOCYTES % 20.5 % (15.0-51.0); MEAN CORPUSCULAR HEMOGLOBIN 29.3 pg (29.0-33.0); MEAN CORPUSCULAR VOLUME 91.6 fl (82.0-101.0); MEAN PLATELET VOLUME 11.9 fl (7.4-10.4); MONOCYTES % 16.1 % (0.0-11.0); NEUTROPHIL # 3.8 10^3/ul (1.6-7.5); NEUTROPHILS % 59.5 % (39.0-77.0); PLATELET COUNT 266 10^3/UL (140-415); RED BLOOD COUNT 3.45 10^6/ul (4.20-5.40); RED CELL DISTRIBUTION WIDTH 14.7 % (11.5-14.5)
[2017-11-05 06:04] LABS: ANION GAP 18 (8-16); BLOOD UREA NITROGEN 51 mg/dl (7-20); CALCIUM 9.5 mg/dl (8.4-10.2); CARBON DIOXIDE 27 mmol/L (21-31); CHLORIDE 100 mmol/L (97-110); CREATININE 4.18 mg/dl (0.44-1.00); GLUCOSE 85 mg/dl (70-220); SODIUM 140 mmol/L (135-144)
[2017-11-05] MEDS: FUROSEMIDE 40 MG TAB PO ×2 (06:41→20:21)
[2017-11-05] MEDS: LISINOPRIL 5 MG TAB PO (09:00)
[2017-11-05] MEDS: CALCIUM ACETATE 667 MG CAP PO ×3 (09:12→17:55)
[2017-11-05] MEDS: DOCUSATE SODIUM 100 MG CAP PO (09:12)
[2017-11-05] MEDS: POLYETHYLENE GLYCOL 17 GM PACKET PO (09:13)
[2017-11-05] MEDS: HEPARIN 5,000 UNIT/0.5 ML VIAL SC ×2 (09:17→20:28)
[2017-11-05] MEDS ORDERED: ALBUMIN HUMAN 25% 50 ML IV (18:00)
[2017-11-05] MEDS ORDERED: HEPARIN 1000 UNITS/ML 10 ML INJ CATHETER (18:00)
[2017-11-05] MEDS ORDERED: SODIUM CHLORIDE 0.9% 1L BAG IV (18:00)
[2017-11-05] MEDS: ALLOPURINOL 100 MG TAB PO (20:22)
[2017-11-05] MEDS: GUAIFENESIN 20 MG/ML 5ML CUP PO (20:30)
[2017-11-05] MEDS: CEPASTAT LOZENGE MT (20:31)
[2017-11-06] MEDS: ALBUTEROL/IPRATROPIUM (NEB) 3 ML AMP HHN ×6 (01:57→21:42)
[2017-11-06] MEDS: FUROSEMIDE 40 MG TAB PO ×2 (05:17→17:10)
[2017-11-06] MEDS: LISINOPRIL 5 MG TAB PO (08:36)
[2017-11-06] MEDS: POLYETHYLENE GLYCOL 17 GM PACKET PO (08:39)
[2017-11-06] MEDS: DOCUSATE SODIUM 100 MG CAP PO (08:39)
[2017-11-06] MEDS: CALCIUM ACETATE 667 MG CAP PO ×3 (08:39→17:10)
[2017-11-06] MEDS: HEPARIN 5,000 UNIT/0.5 ML VIAL SC ×2 (08:47→22:43)
[2017-11-06] MEDS: HEPARIN 1000 UNITS/ML 10 ML INJ CATHETER (20:36)
[2017-11-06] MEDS: ALLOPURINOL 100 MG TAB PO (22:39)
[2017-11-07] MEDS: ALBUTEROL/IPRATROPIUM (NEB) 3 ML AMP HHN (01:00)
== END 2017-11-06 23:45 | disposition home health service (06) | DRG 673 ==
LOC: MS1 11-01 16:14 → E/R 04:23 → MS4 08:19
PROC: 30233N1 Transfusion of Nonautologous Red Blood Cells into Peripheral Vein, Percutaneous Approach (ICD-10-PCS; 2017-10-25)
PROC: 5A1D70Z Performance of Urinary Filtration, Intermittent, Less than 6 Hours Per Day (ICD-10-PCS; 2017-10-28)
PROC: 0JH63XZ Insertion of Tunneled Vascular Access Device into Chest Subcutaneous Tissue and Fascia, Percutaneous Approach (ICD-10-PCS; principal; 2017-10-29)
PROC: 02H633Z Insertion of Infusion Device into Right Atrium, Percutaneous Approach (ICD-10-PCS; 2017-10-29)
PROC: 5A1D70Z Performance of Urinary Filtration, Intermittent, Less than 6 Hours Per Day (ICD-10-PCS; 2017-10-29)
PROC: 5A1D70Z Performance of Urinary Filtration, Intermittent, Less than 6 Hours Per Day (ICD-10-PCS; 2017-11-03)
PROC: 5A1D70Z Performance of Urinary Filtration, Intermittent, Less than 6 Hours Per Day (ICD-10-PCS; 2017-11-05)
DX: N17.9 Acute kidney failure, unspecified (principal); I50.33 Acute on chronic diastolic (congestive) heart failure; E87.0 Hyperosmolality and hypernatremia; E88.09 Other disorders of plasma-protein metabolism, not elsewhere classified; I13.2 Hypertensive heart and chronic kidney disease with heart failure and with stage 5 chronic kidney disease, or end stage renal disease; I16.1 Hypertensive emergency; E87.70 Fluid overload, unspecified; N18.6 End stage renal disease; D63.1 Anemia in chronic kidney disease; E83.39 Other disorders of phosphorus metabolism; F17.200 Nicotine dependence, unspecified, uncomplicated; E86.0 Dehydration; E83.51 Hypocalcemia; E79.0 Hyperuricemia without signs of inflammatory arthritis and tophaceous disease; Z91.14 Patient's other noncompliance with medication regimen; F17.210 Nicotine dependence, cigarettes, uncomplicated; Z99.2 Dependence on renal dialysis
CPT/HCPCS: 36415; 36430; 36558; 71045; 76775; 76942; 80048; 80053; 80076; 80307; 81001; 82043; 82270; 82540; 82550; 82607; 82746; 83540; 83605; 83735; 83880; 84100; 84155; 84300; 84484; 84560; 85025; 85045; 85610; 85730; 86704; 86706; 86709; 86803; 86850; 86900; 86901; 86920; 87040; 87340; 87400; 89190; 90935; 93005; 93306; 93970; 94640; 94664; 96372; 96374; 96375; 96376; 97110; 97116; 97163; 97530; 99285-25; J1940

== ENCOUNTER 2018-02-22 02:14 | Inpatient (IN) | payer MEDICARE, MEDICAID, OTHER ==
[2018-02-22] MEDS: ONDANSETRON 4 MG INJ IV ×2 (03:19→08:01)
[2018-02-22] MEDS: morphine 4 MG/ML VIAL IV (03:19)
[2018-02-22] MEDS: SOD CHLORIDE 0.9% 500 ML IV (03:20)
[2018-02-22 03:36] LABS: HEMATOCRIT 29.4 % (37.0-47.0); HEMOGLOBIN 9.4 g/dl (12.0-16.0); MEAN CORPUSCULAR VOLUME 93.9 fl (82.0-101.0); MEAN PLATELET VOLUME 11.3 fl (7.4-10.4); PLATELET COUNT 154 10^3/UL (140-415); RED BLOOD COUNT 3.13 10^6/ul (4.20-5.40); RED CELL DISTRIBUTION WIDTH 18.5 % (11.5-14.5)
[2018-02-22 03:36] LABS: WHITE BLOOD COUNT 8.3 10^3/ul (4.8-10.8)
[2018-02-22 03:37] LABS: POSITIVE DIFF @See below
[2018-02-22 03:38] LABS: ADD MAN DIFF? YES
[2018-02-22] MEDS: SOD CHLORIDE 0.9% 100 ML (03:42)
[2018-02-22] MEDS: IOHEXOL 300MG/ML 150 ML BTL (03:42)
[2018-02-22 03:53] LABS: ALANINE AMINOTRANSFERASE 43 IU/L (13-69); ALBUMIN 3.4 g/dl (3.3-4.9); ALBUMIN/GLOBULIN RATIO 0.75; ALKALINE PHOSPHATASE 332 IU/L (42-121); ANION GAP 22 (8-16); ASPARTATE AMINO TRANSFERASE 38 IU/L (15-46); BILIRUBIN,INDIRECT 0.2 mg/dl (0-1.1); BILIRUBIN,TOTAL 0.2 mg/dl (0.2-1.3); BLOOD UREA NITROGEN 62 mg/dl (7-20); CALCIUM 8.7 mg/dl (8.4-10.2); CARBON DIOXIDE 24 mmol/L (21-31); CHLORIDE 98 mmol/L (97-110); CREATININE 8.07 mg/dl (0.44-1.00); GLUCOSE 107 mg/dl (70-220); LIPASE 40 U/L (23-300); POTASSIUM 3.8 mmol/L (3.5-5.1); SODIUM 140 mmol/L (135-144); TOTAL PROTEIN 7.9 g/dl (6.1-8.1)
[2018-02-22 04:15] LABS: ANISOCYTOSIS 1+ (0-0); BAND NEUTROPHILS % (M) 1 % (0-4); HYPOCHROMASIA 1+ (0-0); LYMPHOCYTES #M 0.7 10^3/ul (0.8-2.9); LYMPHOCYTES % (M) 9 % (15-51); MONOCYTE #M 0.1 10^3/ul (0.3-0.9); MONOCYTES % (M) 2 % (0-11); PLATELET ESTIMATE NORMAL; POLYCHROMASIA 2+ (0-0); SEG NEUT #M 7.3 10^3/ul (1.6-7.5); SEGMENTED NEUTROPHILS (M) % 88 % (39-77); SMUDGE%M 2 % (0-0)
[2018-02-22 07:00] LABS: TROPONIN-I 0.075 ng/ml (0.000-0.120)
[2018-02-22] MEDS ORDERED: ACETAMINOPHEN 325 MG TAB (07:46)
[2018-02-22 07:48] LABS: ADD UMIC YES; UR ASCORBIC ACID NEGATIVE (NEGATIVE); UR BACTERIA MODERATE /HPF (NONE SEEN); UR BILIRUBIN (Dip) NEGATIVE (NEGATIVE); UR BLOOD (Dip) 2+ mg/dL (NEGATIVE); UR CLARITY SLIGHTLY CLOUDY (CLEAR); UR COLOR YELLOW (YELLOW); UR GLUCOSE (Dip) NEGATIVE (NEGATIVE); UR KETONES (Dip) NEGATIVE (NEGATIVE); UR LEUKOCYTE ESTERASE (Dip) 2+ Leu/ul (NEGATIVE); UR NITRITE (Dip) NEGATIVE (NEGATIVE); UR RBC 5 /HPF (0-5); UR SPECIFIC GRAVITY (Dip) 1.012 (1.003-1.030); UR SQUAMOUS EPITHELIAL CELL MODERATE /HPF (FEW); UR TOTAL PROTEIN (Dip) 2+ mg/dl (NEGATIVE); UR UROBILINOGEN (Dip) NEGATIVE (NEGATIVE); UR WBC 27 /HPF (0-5)
[2018-02-22] MEDS: ACETAMINOPHEN 325 MG TAB PO ×2 (08:00→21:03)
[2018-02-22] MEDS: HYDROmorphONE 1 MG/ML SYG IV (08:01)
[2018-02-22] MEDS: METHYLPREDNISOLONE 125 MG INJ IV ×3 (08:22→22:20)
[2018-02-22] MEDS: CEFEPIME 2GM/50 ML (PMX) 50 ML IVPB (08:22)
[2018-02-22] MEDS: ALBUTEROL 0.5% (NEB) 2.5 MG/0.5 ML AMP INH (08:29)
[2018-02-22] MEDS: VANCOMYCIN 1 GM (PMX) 250 ML IVPB (09:09)
[2018-02-22] MEDS ORDERED: ONDANSETRON 4 MG INJ IV ×2 (10:00→10:30)
[2018-02-22] MEDS ORDERED: ACETAMINOPHEN 325 MG TAB PO (10:00)
[2018-02-22] MEDS ORDERED: NACL 0.9% 3 ML SYG IV (10:30)
[2018-02-22] MEDS ORDERED: GUAIFENESIN/DM 5ML CUP PO (10:30)
[2018-02-22 11:53] LABS: LACTIC ACID 0.9 mmol/L (0.5-2.0)
[2018-02-22 11:56] LABS: CREATINE KINASE < 20 IU/L (23-200)
[2018-02-22] MEDS: HYDROCODONE/APAP (5/325) TAB PO (11:56)
[2018-02-22] MEDS: LEVOFLOXACIN 500MG/D5W (PMX) 100 ML IVPB (11:57)
[2018-02-22] MEDS: FUROSEMIDE 40 MG INJ IV (11:57)
[2018-02-22] MEDS: CALCIUM ACETATE 667 MG CAP PO ×2 (11:57→17:31)
[2018-02-22 11:58] LABS: AADO2 Arterial 80.8 mmHg (7.0-24.0); Allen Test ACCEPTAB; Arterial Base Excess -0.2 mmol/L (-3.0-3); Arterial Blood Gas Oxygen Sat 89.8 mmHG (95.0-98.0); Arterial COHb 1.8 % (0.0-3.0); Arterial Fraction of Oxyhgb 88.1 % (93.0-99.0); Arterial HCO3 25.2 mmol/L (22.0-26.0); Arterial MetHb 0.1 % (0.0-1.5); Arterial Total Hemglobin 10.4 g/dl (12.0-18.0); MODE NASAL CANNULA; Site Right Radial
[2018-02-22 12:02] LABS: CK-MB 0.53 ng/ml (0.0-2.4)
[2018-02-22 12:05] LABS: B-TYPE NATRIURETIC PEPTIDE 6210 PG/ML (0-125)
[2018-02-22 12:06] LABS: TROPONIN-I 0.065 ng/ml (0.000-0.120)
[2018-02-22] MEDS: ALBUTEROL/IPRATROPIUM (NEB) 3 ML AMP HHN ×3 (12:39→20:29)
[2018-02-22] MEDS: GUAIFENESIN/DM (SR) TAB PO (13:07)
[2018-02-22] MEDS: CEFTRIAXONE 1 GM/50 ML (PMX) 50 ML IVPB (13:09)
[2018-02-22 16:30] LABS: CREATINE KINASE < 20 IU/L (23-200)
[2018-02-22 16:41] LABS: CK-MB 0.63 ng/ml (0.0-2.4); TROPONIN-I 0.046 ng/ml (0.000-0.120)
[2018-02-22] MEDS ORDERED: ALBUMIN HUMAN 25% 100 ML IV (17:00)
[2018-02-22] MEDS ORDERED: SODIUM CHLORIDE 0.9% 1L BAG IV (17:00)
[2018-02-22] MEDS ORDERED: VANCOMYCIN IV PER PHARMACY XX (20:30)
[2018-02-22] MEDS: ALLOPURINOL 100 MG TAB PO (21:02)
[2018-02-22] MEDS: HEPARIN 5,000 UNIT/0.5 ML VIAL SC (21:07)
[2018-02-23] MEDS: ALBUTEROL/IPRATROPIUM (NEB) 3 ML AMP HHN ×6 (01:00→21:02)
[2018-02-23] MEDS: HEPARIN 1000 UNITS/ML 10 ML INJ CATHETER (03:49)
[2018-02-23] MEDS: METHYLPREDNISOLONE 125 MG INJ IV (05:31)
[2018-02-23 05:40] LABS: HEMATOCRIT 28.9 % (37.0-47.0); HEMOGLOBIN 9.5 g/dl (12.0-16.0); MEAN CORPUSCULAR HEMOGLOBIN 29.9 pg (29.0-33.0); MEAN CORPUSCULAR HGB CONC 32.9 g/dl (32.0-37.0); MEAN CORPUSCULAR VOLUME 90.9 fl (82.0-101.0); MEAN PLATELET VOLUME 12.1 fl (7.4-10.4); PLATELET COUNT 159 10^3/UL (140-415); RED BLOOD COUNT 3.18 10^6/ul (4.20-5.40); RED CELL DISTRIBUTION WIDTH 18.3 % (11.5-14.5)
[2018-02-23 05:40] LABS: WHITE BLOOD COUNT 11.4 10^3/ul (4.8-10.8)
[2018-02-23 05:50] LABS: ADD MAN DIFF? YES; POSITIVE DIFF @See below
[2018-02-23 06:33] LABS: ALANINE AMINOTRANSFERASE 36 IU/L (13-69); ALBUMIN 3.3 g/dl (3.3-4.9); ALBUMIN/GLOBULIN RATIO 0.78; ALKALINE PHOSPHATASE 303 IU/L (42-121); ANION GAP 17 (8-16); ASPARTATE AMINO TRANSFERASE 29 IU/L (15-46); BILIRUBIN,INDIRECT 0.1 mg/dl (0-1.1); BILIRUBIN,TOTAL 0.1 mg/dl (0.2-1.3); BLOOD UREA NITROGEN 34 mg/dl (7-20); CALCIUM 8.8 mg/dl (8.4-10.2); CARBON DIOXIDE 27 mmol/L (21-31); CHLORIDE 99 mmol/L (97-110); GLUCOSE 216 mg/dl (70-220); SODIUM 139 mmol/L (135-144); TOTAL PROTEIN 7.5 g/dl (6.1-8.1)
[2018-02-23 06:41] LABS: CHOL/HDL RATIO 6.2 RATIO; HDL CHOLESTEROL 21 mg/dl (33-92); LDL CHOLESTEROL,CALCULATED 70 mg/dl; TRIGLYCERIDES 199 mg/dl (0-149)
[2018-02-23 06:41] LABS: CHOLESTEROL 131 mg/dl (100-200)
[2018-02-23 06:55] LABS: THYROID STIMULATING HORMONE 0.172 MIU/L (0.465-4.680)
[2018-02-23 07:09] LABS: HEMOGLOBIN A1C 5.1 % (0-5.9)
[2018-02-23 07:28] LABS: ANISOCYTOSIS 1+ (0-0); BAND NEUTROPHILS #M 1.1 10^3/ul (0.0-0.6); BAND NEUTROPHILS % (M) 10 % (0-4); LYMPHOCYTES #M 0.3 10^3/ul (0.8-2.9); LYMPHOCYTES % (M) 3 % (15-51); MONOCYTE #M 0.1 10^3/ul (0.3-0.9); MONOCYTES % (M) 1 % (0-11); PLATELET ESTIMATE DECREASED; PLATELET MORPHOLOGY COMMENT @See below; POLYCHROMASIA 2+ (0-0); SEG NEUT #M 9.9 10^3/ul (1.6-7.5); SEGMENTED NEUTROPHILS (M) % 86 % (39-77)
[2018-02-23] MEDS: ASPIRIN 81 MG TAB PO (08:06)
[2018-02-23] MEDS: PANTOPRAZOLE (EC) 40 MG TAB PO (08:06)
[2018-02-23] MEDS: CINACALCET 30 MG TAB PO (08:06)
[2018-02-23] MEDS: LISINOPRIL 5 MG TAB PO (08:07)
[2018-02-23] MEDS: CALCIUM ACETATE 667 MG CAP PO ×3 (08:07→18:11)
[2018-02-23] MEDS: GUAIFENESIN/DM (SR) TAB PO (08:07)
[2018-02-23] MEDS: DOCUSATE SODIUM 100 MG CAP PO (08:08)
[2018-02-23] MEDS: HEPARIN 5,000 UNIT/0.5 ML VIAL SC ×2 (08:12→21:17)
[2018-02-23] MEDS: FLUTICASONE/VILANTEROL 100-25 INH (11:23)
[2018-02-23] MEDS: TIOTROPIUM 18 MCG CAPSULE INHA DEV INH (11:24)
[2018-02-23] MEDS: CEFTRIAXONE 1 GM/50 ML (PMX) 50 ML IVPB (11:25)
[2018-02-23] MEDS: METHYLPREDNISOLONE 40 MG INJ IV ×2 (14:11→21:13)
[2018-02-23] MEDS: MONTELUKAST 10 MG TAB PO (21:12)
[2018-02-23] MEDS: FISH OIL 1,000 MG CAP PO (21:12)
[2018-02-23] MEDS: ALLOPURINOL 100 MG TAB PO (21:12)
[2018-02-24] MEDS: ALBUTEROL/IPRATROPIUM (NEB) 3 ML AMP HHN ×6 (00:47→21:00)
[2018-02-24] MEDS: METHYLPREDNISOLONE 40 MG INJ IV (05:27)
[2018-02-24 05:52] LABS: ADD MAN DIFF? NO
[2018-02-24 05:57] LABS: WHITE BLOOD COUNT 16.8 10^3/ul (4.8-10.8)
[2018-02-24 05:57] LABS: BASOPHILS % 0.2 % (0.0-2.0); HEMOGLOBIN 9.2 g/dl (12.0-16.0); LYMPHOCYTES % 6.1 % (15.0-51.0); MEAN CORPUSCULAR HEMOGLOBIN 29.8 pg (29.0-33.0); MEAN CORPUSCULAR HGB CONC 32.9 g/dl (32.0-37.0); MEAN CORPUSCULAR VOLUME 90.6 fl (82.0-101.0); MEAN PLATELET VOLUME 12.4 fl (7.4-10.4); MONOCYTE # 0.8 10^3/ul (0.3-0.9); MONOCYTES % 4.5 % (0.0-11.0); NEUTROPHIL # 14.7 10^3/ul (1.6-7.5); NEUTROPHILS % 87.4 % (39.0-77.0); PLATELET COUNT 231 10^3/UL (140-415); RED BLOOD COUNT 3.09 10^6/ul (4.20-5.40); RED CELL DISTRIBUTION WIDTH 18.2 % (11.5-14.5)
[2018-02-24 06:19] LABS: VANCOMYCIN,RANDOM 9.4 ug/ml
[2018-02-24 06:19] LABS: ANION GAP 20 (8-16); BLOOD UREA NITROGEN 80 mg/dl (7-20); CALCIUM 8.9 mg/dl (8.4-10.2); CARBON DIOXIDE 26 mmol/L (21-31); CHLORIDE 96 mmol/L (97-110); CREATININE 6.36 mg/dl (0.44-1.00); GLUCOSE 163 mg/dl (70-220); POTASSIUM 4.8 mmol/L (3.5-5.1); SODIUM 137 mmol/L (135-144)
[2018-02-24] MEDS: PENICILLIN K IVPB ×4 (09:00→18:11)
[2018-02-24] MEDS: DEXTROSE 5% IVPB ×4 (09:00→18:11)
[2018-02-24] MEDS: LISINOPRIL 5 MG TAB PO (09:00)
[2018-02-24 09:59] LABS: HEPATITIS B SURFACE ANTIGEN NEGATIVE (NEGATIVE)
[2018-02-24] MEDS: FISH OIL 1,000 MG CAP PO ×3 (10:23→20:42)
[2018-02-24] MEDS: CINACALCET 30 MG TAB PO (10:24)
[2018-02-24] MEDS: GUAIFENESIN/DM (SR) TAB PO (10:24)
[2018-02-24] MEDS: CALCIUM ACETATE 667 MG CAP PO ×3 (10:24→18:11)
[2018-02-24] MEDS: AZITHROMYCIN 250 MG TAB PO (10:25)
[2018-02-24] MEDS: ASPIRIN 81 MG TAB PO (10:25)
[2018-02-24] MEDS: L ACIDOPHIL/B LACTIS/B LONGUM CAPSULE PO ×2 (10:26→20:36)
[2018-02-24] MEDS: PANTOPRAZOLE (EC) 40 MG TAB PO (10:26)
[2018-02-24] MEDS: TIOTROPIUM 18 MCG CAPSULE INHA DEV INH (10:27)
[2018-02-24] MEDS: FLUTICASONE/VILANTEROL 100-25 INH (10:28)
[2018-02-24] MEDS: DOCUSATE SODIUM 100 MG CAP PO (10:29)
[2018-02-24] MEDS: HEPARIN 5,000 UNIT/0.5 ML VIAL SC ×2 (10:38→20:40)
[2018-02-24] MEDS: HEPARIN 1000 UNITS/ML 10 ML INJ CATHETER (11:08)
[2018-02-24] MEDS ORDERED: LEVOFLOXACIN 250MG/D5W (PMX) 50 ML IVPB (11:30)
[2018-02-24] MEDS: BISACODYL 10 MG SUPP PR (14:25)
[2018-02-24] MEDS: ALLOPURINOL 100 MG TAB PO (20:35)
[2018-02-24] MEDS: MONTELUKAST 10 MG TAB PO (20:35)
[2018-02-24] MEDS: predniSONE 20 MG TAB PO (20:38)
[2018-02-25] MEDS: PENICILLIN K IVPB ×4 (00:08→18:30)
[2018-02-25] MEDS: DEXTROSE 5% IVPB ×4 (00:08→18:30)
[2018-02-25] MEDS: ALBUTEROL/IPRATROPIUM (NEB) 3 ML AMP HHN ×3 (00:34→10:14)
[2018-02-25 01:11] LABS: ADD UMIC YES; UR AMORPHOUS CRYSTAL FEW /HPF (NONE SEEN); UR ASCORBIC ACID NEGATIVE (NEGATIVE); UR BACTERIA FEW /HPF (NONE SEEN); UR BILIRUBIN (Dip) NEGATIVE (NEGATIVE); UR BLOOD (Dip) 2+ mg/dL (NEGATIVE); UR CLARITY TURBID (CLEAR); UR COLOR YELLOW (YELLOW); UR GLUCOSE (Dip) 1+ mg/dL (NEGATIVE); UR GRANULAR CAST FEW /HPF (NONE SEEN); UR KETONES (Dip) NEGATIVE (NEGATIVE); UR LEUKOCYTE ESTERASE (Dip) TRACE Leu/ul (NEGATIVE); UR MUCUS FEW /HPF (NONE SEEN); UR NITRITE (Dip) NEGATIVE (NEGATIVE); UR NONSQUAMOUS EPITHELIAL CELL 3 /HPF (NONE SEEN); UR RBC 22 /HPF (0-5); UR SPECIFIC GRAVITY (Dip) 1.015 (1.003-1.030); UR SQUAMOUS EPITHELIAL CELL MANY /HPF (FEW); UR TOTAL PROTEIN (Dip) 2+ mg/dl (NEGATIVE); UR UROBILINOGEN (Dip) NEGATIVE (NEGATIVE); UR WBC 64 /HPF (0-5)
[2018-02-25 05:51] LABS: ADD MAN DIFF? NO
[2018-02-25 05:54] LABS: BASOPHILS % 0.2 % (0.0-2.0); HEMATOCRIT 27.6 % (37.0-47.0); LYMPHOCYTES # 0.9 10^3/ul (0.8-2.9); LYMPHOCYTES % 5.7 % (15.0-51.0); MEAN CORPUSCULAR HEMOGLOBIN 29.6 pg (29.0-33.0); MEAN CORPUSCULAR HGB CONC 32.6 g/dl (32.0-37.0); MEAN CORPUSCULAR VOLUME 90.8 fl (82.0-101.0); MEAN PLATELET VOLUME 11.5 fl (7.4-10.4); NEUTROPHILS % 84.7 % (39.0-77.0); PLATELET COUNT 251 10^3/UL (140-415); RED BLOOD COUNT 3.04 10^6/ul (4.20-5.40); RED CELL DISTRIBUTION WIDTH 18.6 % (11.5-14.5)
[2018-02-25 05:54] LABS: WHITE BLOOD COUNT 16.5 10^3/ul (4.8-10.8)
[2018-02-25 06:16] LABS: ANION GAP 19 (8-16); BLOOD UREA NITROGEN 72 mg/dl (7-20); CALCIUM 8.6 mg/dl (8.4-10.2); CARBON DIOXIDE 24 mmol/L (21-31); CHLORIDE 102 mmol/L (97-110); CREATININE 4.95 mg/dl (0.44-1.00); GLUCOSE 196 mg/dl (70-220); POTASSIUM 5.1 mmol/L (3.5-5.1); SODIUM 140 mmol/L (135-144)
[2018-02-25] MEDS: ASPIRIN 81 MG TAB PO (08:50)
[2018-02-25] MEDS: CALCIUM ACETATE 667 MG CAP PO ×3 (08:50→18:30)
[2018-02-25] MEDS: PANTOPRAZOLE (EC) 40 MG TAB PO ×2 (08:50→09:00)
[2018-02-25] MEDS: DOCUSATE SODIUM 100 MG CAP PO (08:50)
[2018-02-25] MEDS: L ACIDOPHIL/B LACTIS/B LONGUM CAPSULE PO ×2 (08:50→21:46)
[2018-02-25] MEDS: CINACALCET 30 MG TAB PO (08:50)
[2018-02-25] MEDS: GUAIFENESIN/DM (SR) TAB PO (08:51)
[2018-02-25] MEDS: LISINOPRIL 5 MG TAB PO (08:51)
[2018-02-25] MEDS: FISH OIL 1,000 MG CAP PO (08:53)
[2018-02-25] MEDS: TIOTROPIUM 18 MCG CAPSULE INHA DEV INH (08:55)
[2018-02-25] MEDS: FLUTICASONE/VILANTEROL 100-25 INH (08:56)
[2018-02-25] MEDS ORDERED: BETHANECHOL 10 MG TAB PO (09:00)
[2018-02-25] MEDS: predniSONE 20 MG TAB PO (09:00)
[2018-02-25] MEDS: HEPARIN 5,000 UNIT/0.5 ML VIAL SC ×2 (09:01→21:56)
[2018-02-25] MEDS: AZITHROMYCIN 250 MG TAB PO (11:08)
[2018-02-25] MEDS ORDERED: SODIUM CHLORIDE 0.9% 1L BAG IV (15:30)
[2018-02-25] MEDS ORDERED: ALBUMIN HUMAN 25% 50 ML IV (15:30)
[2018-02-25] MEDS ORDERED: HEPARIN 1000 UNITS/ML 10 ML INJ CATHETER (15:30)
[2018-02-25] MEDS: ACETAMINOPHEN 325 MG TAB PO (16:08)
[2018-02-25 20:19] LABS: RHEUMATOID FACTOR NEGATIVE (NEGATIVE)
[2018-02-25] MEDS: MONTELUKAST 10 MG TAB PO (21:46)
[2018-02-25] MEDS: ALLOPURINOL 100 MG TAB PO (21:47)
[2018-02-26 05:35] LABS: ADD MAN DIFF? NO
[2018-02-26] MEDS: PANTOPRAZOLE (EC) 40 MG TAB PO ×3 (05:40→09:23)
[2018-02-26] MEDS: DEXTROSE 5% IVPB ×4 (05:41→17:47)
[2018-02-26] MEDS: PENICILLIN K IVPB ×4 (05:41→17:47)
[2018-02-26 05:45] LABS: ABNORMAL IP MESSAGE 1; BASOPHILS % 0.2 % (0.0-2.0); EOSINOPHILS % 0.1 % (0.0-7.0); HEMATOCRIT 27.1 % (37.0-47.0); HEMOGLOBIN 8.9 g/dl (12.0-16.0); LYMPHOCYTES # 1.5 10^3/ul (0.8-2.9); LYMPHOCYTES % 7.4 % (15.0-51.0); MEAN CORPUSCULAR HEMOGLOBIN 29.7 pg (29.0-33.0); MEAN CORPUSCULAR HGB CONC 32.8 g/dl (32.0-37.0); MEAN CORPUSCULAR VOLUME 90.3 fl (82.0-101.0); MEAN PLATELET VOLUME 11.8 fl (7.4-10.4); MONOCYTE # 1.6 10^3/ul (0.3-0.9); NEUTROPHIL # 15.6 10^3/ul (1.6-7.5); NEUTROPHILS % 79.1 % (39.0-77.0); PLATELET COUNT 298 10^3/UL (140-415); RED CELL DISTRIBUTION WIDTH 18.6 % (11.5-14.5)
[2018-02-26 05:45] LABS: WHITE BLOOD COUNT 19.7 10^3/ul (4.8-10.8)
[2018-02-26 05:52] LABS: POSITIVE DIFF @See below
[2018-02-26 06:17] LABS: ANION GAP 20 (8-16); BLOOD UREA NITROGEN 102 mg/dl (7-20); CALCIUM 8.5 mg/dl (8.4-10.2); CARBON DIOXIDE 23 mmol/L (21-31); CHLORIDE 101 mmol/L (97-110); CREATININE 5.71 mg/dl (0.44-1.00); GLUCOSE 152 mg/dl (70-220); SODIUM 139 mmol/L (135-144)
[2018-02-26] MEDS: LISINOPRIL 5 MG TAB PO ×2 (09:00→21:16)
[2018-02-26] MEDS: TIOTROPIUM 18 MCG CAPSULE INHA DEV INH (09:19)
[2018-02-26] MEDS: CINACALCET 30 MG TAB PO (09:21)
[2018-02-26] MEDS: ASPIRIN 81 MG TAB PO (09:21)
[2018-02-26] MEDS: DOCUSATE SODIUM 100 MG CAP PO (09:21)
[2018-02-26] MEDS: GUAIFENESIN/DM (SR) TAB PO (09:21)
[2018-02-26] MEDS: L ACIDOPHIL/B LACTIS/B LONGUM CAPSULE PO ×2 (09:21→21:09)
[2018-02-26] MEDS: CALCIUM ACETATE 667 MG CAP PO ×3 (09:22→17:47)
[2018-02-26] MEDS: predniSONE 20 MG TAB PO (09:24)
[2018-02-26] MEDS: AZITHROMYCIN 250 MG TAB PO (09:24)
[2018-02-26] MEDS: METOPROLOL (XL) 25 MG TAB PO ×2 (09:25→21:16)
[2018-02-26] MEDS: FLUTICASONE/VILANTEROL 100-25 INH (09:27)
[2018-02-26] MEDS: HEPARIN 5,000 UNIT/0.5 ML VIAL SC ×2 (09:34→21:18)
[2018-02-26] MEDS: HEPARIN 1000 UNITS/ML 10 ML INJ CATHETER (14:33)
[2018-02-26 17:37] LABS: ADD UMIC YES; UR ASCORBIC ACID NEGATIVE (NEGATIVE); UR BACTERIA FEW /HPF (NONE SEEN); UR BILIRUBIN (Dip) NEGATIVE (NEGATIVE); UR BLOOD (Dip) 2+ mg/dL (NEGATIVE); UR CLARITY SLIGHTLY CLOUDY (CLEAR); UR COLOR YELLOW (YELLOW); UR GLUCOSE (Dip) NEGATIVE (NEGATIVE); UR KETONES (Dip) NEGATIVE (NEGATIVE); UR LEUKOCYTE ESTERASE (Dip) NEGATIVE Leu/ul (NEGATIVE); UR NITRITE (Dip) NEGATIVE (NEGATIVE); UR RBC 5 /HPF (0-5); UR SPECIFIC GRAVITY (Dip) 1.014 (1.003-1.030); UR SQUAMOUS EPITHELIAL CELL MODERATE /HPF (FEW); UR TOTAL PROTEIN (Dip) 2+ mg/dl (NEGATIVE); UR UROBILINOGEN (Dip) NEGATIVE (NEGATIVE); UR WBC 4 /HPF (0-5)
[2018-02-26] MEDS: MONTELUKAST 10 MG TAB PO (21:09)
[2018-02-26] MEDS: ALLOPURINOL 100 MG TAB PO (21:09)
[2018-02-27] MEDS: PENICILLIN K IVPB ×4 (00:28→17:48)
[2018-02-27] MEDS: DEXTROSE 5% IVPB ×4 (00:28→17:48)
[2018-02-27] MEDS: ACETAMINOPHEN 325 MG TAB PO (04:39)
[2018-02-27] MEDS: PANTOPRAZOLE (EC) 40 MG TAB PO (05:17)
[2018-02-27] MEDS: CALCIUM ACETATE 667 MG CAP PO ×3 (08:35→17:48)
[2018-02-27] MEDS: DOCUSATE SODIUM 100 MG CAP PO (08:35)
[2018-02-27] MEDS: CINACALCET 30 MG TAB PO (08:35)
[2018-02-27] MEDS: ASPIRIN 81 MG TAB PO (08:35)
[2018-02-27] MEDS: TIOTROPIUM 18 MCG CAPSULE INHA DEV INH (08:35)
[2018-02-27] MEDS: L ACIDOPHIL/B LACTIS/B LONGUM CAPSULE PO ×2 (08:35→21:30)
[2018-02-27] MEDS: GUAIFENESIN/DM (SR) TAB PO (08:36)
[2018-02-27] MEDS: AZITHROMYCIN 250 MG TAB PO (08:36)
[2018-02-27] MEDS: METOPROLOL (XL) 25 MG TAB PO ×2 (08:36→21:29)
[2018-02-27] MEDS: LISINOPRIL 5 MG TAB PO (08:36)
[2018-02-27] MEDS: predniSONE 20 MG TAB PO (08:37)
[2018-02-27] MEDS: FLUTICASONE/VILANTEROL 100-25 INH (08:38)
[2018-02-27] MEDS: HYDROCODONE/APAP (5/325) TAB PO ×3 (08:46→21:40)
[2018-02-27] MEDS: HEPARIN 5,000 UNIT/0.5 ML VIAL SC ×2 (08:56→21:27)
[2018-02-27] MEDS: LISINOPRIL 20 MG TAB PO (21:27)
[2018-02-27] MEDS: ALLOPURINOL 100 MG TAB PO (21:30)
[2018-02-27] MEDS: MONTELUKAST 10 MG TAB PO (21:30)
[2018-02-28] MEDS: PENICILLIN K IVPB ×4 (01:48→18:28)
[2018-02-28] MEDS: DEXTROSE 5% IVPB ×4 (01:48→18:28)
[2018-02-28] MEDS: ACETAMINOPHEN 325 MG TAB PO (01:56)
[2018-02-28] MEDS: hydrALAzine 20 MG INJ IV (03:18)
[2018-02-28] MEDS: PANTOPRAZOLE (EC) 40 MG TAB PO (05:55)
[2018-02-28 06:27] LABS: WHITE BLOOD COUNT 21.5 10^3/ul (4.8-10.8)
[2018-02-28 06:27] LABS: ABNORMAL IP MESSAGE 1; HEMATOCRIT 28.2 % (37.0-47.0); HEMOGLOBIN 9.2 g/dl (12.0-16.0); MEAN CORPUSCULAR HEMOGLOBIN 29.7 pg (29.0-33.0); MEAN CORPUSCULAR HGB CONC 32.6 g/dl (32.0-37.0); PLATELET COUNT 404 10^3/UL (140-415); RED CELL DISTRIBUTION WIDTH 18.4 % (11.5-14.5)
[2018-02-28 06:33] LABS: ADD MAN DIFF? YES; POSITIVE DIFF @See below
[2018-02-28 07:01] LABS: ANION GAP 16 (8-16); BLOOD UREA NITROGEN 104 mg/dl (7-20); CALCIUM 8.2 mg/dl (8.4-10.2); CARBON DIOXIDE 23 mmol/L (21-31); CHLORIDE 101 mmol/L (97-110); CREATININE 4.65 mg/dl (0.44-1.00); GLUCOSE 102 mg/dl (70-220); POTASSIUM 4.7 mmol/L (3.5-5.1); SODIUM 135 mmol/L (135-144)
[2018-02-28 07:49] LABS: ANISOCYTOSIS 2+ (0-0); BAND NEUTROPHILS #M 0.4 10^3/ul (0.0-0.6); BAND NEUTROPHILS % (M) 2 % (0-4); BASOPHIL #M 0.2 10^3/ul (0.0-0.0); BASOPHILS % (M) 1 % (0-2); EOSINOPHILS % (M) 1 % (0-7); GIANT THROMBO% (M) 1 % (0-0); LYMPHOCYTES #M 1.5 10^3/ul (0.8-2.9); LYMPHOCYTES % (M) 7 % (15-51); METAMYELOCYTES #M 0.4 10^3/ul (0.0-0.0); METAMYELOCYTES %M 2 % (0-0); MONOCYTE #M 0.8 10^3/ul (0.3-0.9); MONOCYTES % (M) 4 % (0-11); MYELOCYTES #M 0.4 10^3/ul (0.0-0.0); MYELOCYTES % (M) 2 % (0-0); PLATELET ESTIMATE NORMAL; POIKILOCYTOSIS 1+ (0-0); POLYCHROMASIA 1+ (0-0); PROMYELOCYTES #M 0.4 10^3/ul (0-0); PROMYELOCYTES % (M) 2 % (0-0); SEG NEUT #M 17.1 10^3/ul (1.6-7.5); SEGMENTED NEUTROPHILS (M) % 79 % (39-77); SMUDGE%M 1 % (0-0); TARGET CELLS 2+ (0-0)
[2018-02-28] MEDS: ASPIRIN 81 MG TAB PO (09:42)
[2018-02-28] MEDS: CALCIUM ACETATE 667 MG CAP PO ×3 (09:43→17:57)
[2018-02-28] MEDS: predniSONE 10 MG TAB PO (09:45)
[2018-02-28] MEDS: CINACALCET 30 MG TAB PO (09:45)
[2018-02-28] MEDS: AZITHROMYCIN 250 MG TAB PO (09:45)
[2018-02-28] MEDS: L ACIDOPHIL/B LACTIS/B LONGUM CAPSULE PO ×2 (09:46→20:58)
[2018-02-28] MEDS: GUAIFENESIN/DM (SR) TAB PO (09:46)
[2018-02-28] MEDS: DOCUSATE SODIUM 100 MG CAP PO (09:46)
[2018-02-28] MEDS: FLUTICASONE/VILANTEROL 100-25 INH (09:48)
[2018-02-28] MEDS: TIOTROPIUM 18 MCG CAPSULE INHA DEV INH (09:48)
[2018-02-28] MEDS: HEPARIN 5,000 UNIT/0.5 ML VIAL SC ×2 (09:54→21:00)
[2018-02-28] MEDS: METOPROLOL (XL) 25 MG TAB PO ×2 (09:54→21:00)
[2018-02-28] MEDS: NIFEdipine (XL) 30 MG TAB PO (13:00)
[2018-02-28] MEDS: LACTOBACILLUS RHAMNOSUS CAP PO ×2 (13:00→20:57)
[2018-02-28] MEDS ORDERED: BISACODYL (EC) 5 MG TAB PO (13:00)
[2018-02-28] MEDS ORDERED: NICOTINE (14 MG/24 HR) PATCH TRANSDERM (13:30)
[2018-02-28] MEDS: HEPARIN 1000 UNITS/ML 10 ML INJ CATHETER (18:12)
[2018-02-28] MEDS: CALCIUM/VITAMIN D (250/125) TAB PO (20:58)
[2018-02-28] MEDS: MONTELUKAST 10 MG TAB PO (20:59)
[2018-02-28] MEDS: ALLOPURINOL 100 MG TAB PO (20:59)
[2018-02-28] MEDS: LISINOPRIL 20 MG TAB PO (21:01)
[2018-03-01] MEDS: PENICILLIN K IVPB ×5 (00:30→23:34)
[2018-03-01] MEDS: DEXTROSE 5% IVPB ×5 (00:30→23:34)
[2018-03-01] MEDS: HYDROCODONE/APAP (5/325) TAB PO ×3 (03:29→17:46)
[2018-03-01] MEDS: PANTOPRAZOLE (EC) 40 MG TAB PO (05:30)
[2018-03-01 06:10] LABS: ABNORMAL IP MESSAGE 1; HEMATOCRIT 26.3 % (37.0-47.0); HEMOGLOBIN 8.8 g/dl (12.0-16.0); MEAN CORPUSCULAR HEMOGLOBIN 30.7 pg (29.0-33.0); MEAN CORPUSCULAR HGB CONC 33.5 g/dl (32.0-37.0); MEAN CORPUSCULAR VOLUME 91.6 fl (82.0-101.0); MEAN PLATELET VOLUME 10.6 fl (7.4-10.4); PLATELET COUNT 380 10^3/UL (140-415); RED BLOOD COUNT 2.87 10^6/ul (4.20-5.40); RED CELL DISTRIBUTION WIDTH 18.7 % (11.5-14.5)
[2018-03-01 06:10] LABS: WHITE BLOOD COUNT 13.9 10^3/ul (4.8-10.8)
[2018-03-01 06:26] LABS: ADD MAN DIFF? YES; POSITIVE DIFF @See below
[2018-03-01 06:44] LABS: ALANINE AMINOTRANSFERASE 35 IU/L (13-69); ALBUMIN 2.8 g/dl (3.3-4.9); ALKALINE PHOSPHATASE 129 IU/L (42-121); ANION GAP 17 (8-16); ASPARTATE AMINO TRANSFERASE 17 IU/L (15-46); BILIRUBIN,INDIRECT 0.1 mg/dl (0-1.1); BILIRUBIN,TOTAL 0.1 mg/dl (0.2-1.3); BLOOD UREA NITROGEN 71 mg/dl (7-20); CALCIUM 7.8 mg/dl (8.4-10.2); CARBON DIOXIDE 27 mmol/L (21-31); CHLORIDE 99 mmol/L (97-110); CREATININE 3.42 mg/dl (0.44-1.00); GLUCOSE 123 mg/dl (70-220); MAGNESIUM 1.8 mg/dl (1.7-2.5); PHOSPHORUS 4.2 mg/dl (2.5-4.9); POTASSIUM 4.5 mmol/L (3.5-5.1); SODIUM 138 mmol/L (135-144); TOTAL PROTEIN 6.3 g/dl (6.1-8.1)
[2018-03-01 06:53] LABS: FREE T4 (FREE THYROXINE) 1.07 ng/dl (0.78-2.44)
[2018-03-01 06:54] LABS: C-REACTIVE PROTEIN 1.2 mg/dl (0.0-0.9)
[2018-03-01 07:08] LABS: TRIIODOTHYRONINE 0.48 ng/ml (0.97-1.69)
[2018-03-01 07:43] LABS: ANISOCYTOSIS 2+ (0-0); LYMPHOCYTES #M 1.8 10^3/ul (0.8-2.9); LYMPHOCYTES % (M) 13 % (15-51); MONOCYTE #M 0.5 10^3/ul (0.3-0.9); MONOCYTES % (M) 4 % (0-11); PLATELET ESTIMATE NORMAL; POLYCHROMASIA 1+ (0-0); SEGMENTED NEUTROPHILS (M) % 83 % (39-77); SMUDGE%M 60 % (0-0)
[2018-03-01] MEDS: FLUTICASONE/VILANTEROL 100-25 INH (08:14)
[2018-03-01] MEDS: ASPIRIN 81 MG TAB PO (08:14)
[2018-03-01] MEDS: CALCIUM ACETATE 667 MG CAP PO ×3 (08:14→17:46)
[2018-03-01] MEDS: GUAIFENESIN/DM (SR) TAB PO (08:15)
[2018-03-01] MEDS: LACTOBACILLUS RHAMNOSUS CAP PO ×2 (08:15→21:00)
[2018-03-01] MEDS: L ACIDOPHIL/B LACTIS/B LONGUM CAPSULE PO ×2 (08:15→21:00)
[2018-03-01] MEDS: CALCIUM/VITAMIN D (250/125) TAB PO ×2 (08:15→21:00)
[2018-03-01] MEDS: DOCUSATE SODIUM 100 MG CAP PO (08:15)
[2018-03-01] MEDS: predniSONE 10 MG TAB PO (08:16)
[2018-03-01] MEDS: NIFEdipine (XL) 30 MG TAB PO (08:19)
[2018-03-01] MEDS: CINACALCET 30 MG TAB PO (08:19)
[2018-03-01] MEDS: AZITHROMYCIN 250 MG TAB PO (08:20)
[2018-03-01] MEDS: HEPARIN 5,000 UNIT/0.5 ML VIAL SC ×2 (08:20→21:04)
[2018-03-01] MEDS: METOPROLOL (XL) 25 MG TAB PO ×2 (08:20→20:59)
[2018-03-01] MEDS: TIOTROPIUM 18 MCG CAPSULE INHA DEV INH (09:38)
[2018-03-01] MEDS ORDERED: SODIUM CHLORIDE 0.9% 1L BAG IV (14:00)
[2018-03-01] MEDS ORDERED: ALBUMIN HUMAN 25% 50 ML IV (14:00)
[2018-03-01] MEDS: ALLOPURINOL 100 MG TAB PO (20:59)
[2018-03-01] MEDS: LISINOPRIL 20 MG TAB PO (21:00)
[2018-03-01] MEDS: MONTELUKAST 10 MG TAB PO (21:00)
[2018-03-02] MEDS: DEXTROSE 5% IVPB ×4 (05:22→23:39)
[2018-03-02] MEDS: PENICILLIN K IVPB ×4 (05:22→23:39)
[2018-03-02] MEDS: HYDROCODONE/APAP (5/325) TAB PO ×2 (05:29→09:28)
[2018-03-02 06:14] LABS: ABNORMAL IP MESSAGE 1; HEMATOCRIT 28.3 % (37.0-47.0); HEMOGLOBIN 9.2 g/dl (12.0-16.0); MEAN CORPUSCULAR HEMOGLOBIN 29.8 pg (29.0-33.0); MEAN CORPUSCULAR HGB CONC 32.5 g/dl (32.0-37.0); MEAN CORPUSCULAR VOLUME 91.6 fl (82.0-101.0); MEAN PLATELET VOLUME 10.4 fl (7.4-10.4); PLATELET COUNT 461 10^3/UL (140-415); RED BLOOD COUNT 3.09 10^6/ul (4.20-5.40); RED CELL DISTRIBUTION WIDTH 19.4 % (11.5-14.5)
[2018-03-02 06:37] LABS: ANION GAP 20 (8-16); BLOOD UREA NITROGEN 108 mg/dl (7-20); CALCIUM 8.1 mg/dl (8.4-10.2); CARBON DIOXIDE 23 mmol/L (21-31); CHLORIDE 100 mmol/L (97-110); CREATININE 4.51 mg/dl (0.44-1.00); GLUCOSE 96 mg/dl (70-220); POTASSIUM 4.8 mmol/L (3.5-5.1); SODIUM 138 mmol/L (135-144)
[2018-03-02 06:39] LABS: ADD MAN DIFF? YES; POSITIVE DIFF @See below
[2018-03-02 07:50] LABS: ANISOCYTOSIS 2+ (0-0); BAND NEUTROPHILS #M 0.1 10^3/ul (0.0-0.6); BAND NEUTROPHILS % (M) 1 % (0-4); LYMPHOCYTES #M 2.1 10^3/ul (0.8-2.9); LYMPHOCYTES % (M) 14 % (15-51); METAMYELOCYTES #M 0.1 10^3/ul (0.0-0.0); METAMYELOCYTES %M 1 % (0-0); MONOCYTES % (M) 7 % (0-11); MYELOCYTES #M 0.1 10^3/ul (0.0-0.0); MYELOCYTES % (M) 1 % (0-0); PLATELET ESTIMATE INCREASED; POLYCHROMASIA 1+ (0-0); PROMYELOCYTES #M 0.1 10^3/ul (0-0); PROMYELOCYTES % (M) 1 % (0-0); SEG NEUT #M 11.3 10^3/ul (1.6-7.5); SEGMENTED NEUTROPHILS (M) % 75 % (39-77); SMUDGE%M 1 % (0-0)
[2018-03-02] MEDS: ACETAMINOPHEN 325 MG TAB PO (08:11)
[2018-03-02] MEDS: CALCIUM ACETATE 667 MG CAP PO ×3 (09:21→17:21)
[2018-03-02] MEDS: TIOTROPIUM 18 MCG CAPSULE INHA DEV INH (09:22)
[2018-03-02] MEDS: CINACALCET 30 MG TAB PO (09:22)
[2018-03-02] MEDS: L ACIDOPHIL/B LACTIS/B LONGUM CAPSULE PO ×2 (09:22→21:08)
[2018-03-02] MEDS: predniSONE 10 MG TAB PO (09:22)
[2018-03-02] MEDS: CALCIUM/VITAMIN D (250/125) TAB PO ×2 (09:23→21:08)
[2018-03-02] MEDS: DOCUSATE SODIUM 100 MG CAP PO (09:23)
[2018-03-02] MEDS: ASPIRIN 81 MG TAB PO (09:23)
[2018-03-02] MEDS: LACTOBACILLUS RHAMNOSUS CAP PO ×2 (09:23→21:08)
[2018-03-02] MEDS: FAMOTIDINE 20 MG TAB PO (09:23)
[2018-03-02] MEDS: GUAIFENESIN/DM (SR) TAB PO (09:23)
[2018-03-02] MEDS: HEPARIN 5,000 UNIT/0.5 ML VIAL SC ×2 (09:24→21:14)
[2018-03-02] MEDS: FLUTICASONE/VILANTEROL 100-25 INH (09:28)
[2018-03-02] MEDS: HEPARIN 1000 UNITS/ML 10 ML INJ CATHETER (10:41)
[2018-03-02] MEDS: NIFEdipine (XL) 30 MG TAB PO (10:57)
[2018-03-02] MEDS: METOPROLOL (XL) 25 MG TAB PO ×2 (10:57→21:10)
[2018-03-02] MEDS ORDERED: morphine 2 MG INJ IV (15:30)
[2018-03-02] MEDS: ALLOPURINOL 100 MG TAB PO (21:08)
[2018-03-02] MEDS: MONTELUKAST 10 MG TAB PO (21:08)
[2018-03-02] MEDS: HYDROCODONE/APAP (10/325) TAB PO (21:10)
[2018-03-02] MEDS: LISINOPRIL 20 MG TAB PO (21:10)
[2018-03-03] MEDS: HYDROCODONE/APAP (10/325) TAB PO ×2 (02:38→10:36)
[2018-03-03] MEDS: DEXTROSE 5% IVPB ×3 (05:42→17:10)
[2018-03-03] MEDS: PENICILLIN K IVPB ×3 (05:42→17:10)
[2018-03-03] MEDS: CALCIUM ACETATE 667 MG CAP PO ×3 (08:11→17:10)
[2018-03-03] MEDS: predniSONE 10 MG TAB PO (08:11)
[2018-03-03] MEDS: CINACALCET 30 MG TAB PO (08:11)
[2018-03-03] MEDS: FAMOTIDINE 20 MG TAB PO (08:11)
[2018-03-03] MEDS: GUAIFENESIN/DM (SR) TAB PO (08:11)
[2018-03-03] MEDS: CALCIUM/VITAMIN D (250/125) TAB PO ×2 (08:12→20:31)
[2018-03-03] MEDS: L ACIDOPHIL/B LACTIS/B LONGUM CAPSULE PO ×2 (08:12→20:32)
[2018-03-03] MEDS: ASPIRIN 81 MG TAB PO (08:14)
[2018-03-03] MEDS: TIOTROPIUM 18 MCG CAPSULE INHA DEV INH (08:14)
[2018-03-03] MEDS: DOCUSATE SODIUM 100 MG CAP PO (08:14)
[2018-03-03] MEDS: FLUTICASONE/VILANTEROL 100-25 INH (08:14)
[2018-03-03] MEDS: HEPARIN 5,000 UNIT/0.5 ML VIAL SC (08:15)
[2018-03-03] MEDS: NIFEdipine (XL) 30 MG TAB PO (08:17)
[2018-03-03] MEDS: METOPROLOL (XL) 25 MG TAB PO ×2 (08:18→20:33)
[2018-03-03] MEDS: LACTOBACILLUS RHAMNOSUS CAP PO ×2 (08:18→20:40)
[2018-03-03] MEDS ORDERED: HEPARIN 1000 UNITS/ML 10 ML INJ CATHETER (13:30)
[2018-03-03] MEDS ORDERED: SODIUM CHLORIDE 0.9% 1L BAG IV (13:30)
[2018-03-03] MEDS ORDERED: ALBUMIN HUMAN 25% 50 ML IV (13:30)
[2018-03-03] MEDS ORDERED: morphine LIQ (10 MG/5 ML) CUP PO (20:00)
[2018-03-03] MEDS: ALLOPURINOL 100 MG TAB PO (20:33)
[2018-03-03] MEDS: LISINOPRIL 20 MG TAB PO (20:33)
[2018-03-03] MEDS: MONTELUKAST 10 MG TAB PO (20:33)
[2018-03-04] MEDS: PENICILLIN K IVPB ×4 (00:17→16:51)
[2018-03-04] MEDS: DEXTROSE 5% IVPB ×4 (00:17→16:51)
[2018-03-04] MEDS: HYDROCODONE/APAP (10/325) TAB PO ×2 (05:03→12:03)
[2018-03-04 06:10] LABS: ADD MAN DIFF? NO
[2018-03-04 06:18] LABS: WHITE BLOOD COUNT 12.2 10^3/ul (4.8-10.8)
[2018-03-04 06:18] LABS: BASOPHILS % 0.2 % (0.0-2.0); EOSINOPHILS % 0.3 % (0.0-7.0); HEMATOCRIT 24.8 % (37.0-47.0); LYMPHOCYTES # 1.5 10^3/ul (0.8-2.9); LYMPHOCYTES % 12.1 % (15.0-51.0); MEAN CORPUSCULAR HEMOGLOBIN 30.4 pg (29.0-33.0); MEAN CORPUSCULAR HGB CONC 32.3 g/dl (32.0-37.0); MEAN CORPUSCULAR VOLUME 94.3 fl (82.0-101.0); MEAN PLATELET VOLUME 10.6 fl (7.4-10.4); NEUTROPHIL # 9.5 10^3/ul (1.6-7.5); NEUTROPHILS % 77.6 % (39.0-77.0); PLATELET COUNT 401 10^3/UL (140-415); RED BLOOD COUNT 2.63 10^6/ul (4.20-5.40); RED CELL DISTRIBUTION WIDTH 19.7 % (11.5-14.5)
[2018-03-04 06:33] LABS: INR 1.02; PROTIME 13.5 Sec (11.9-14.9); PT RATIO 1.1
[2018-03-04 06:34] LABS: PARTIAL THROMBOPLASTIN TIME 28.2 Sec (25.0-35.0)
[2018-03-04 06:52] LABS: ALANINE AMINOTRANSFERASE 33 IU/L (13-69); ALBUMIN 2.8 g/dl (3.3-4.9); ALBUMIN/GLOBULIN RATIO 0.82; ALKALINE PHOSPHATASE 105 IU/L (42-121); ANION GAP 16 (8-16); ASPARTATE AMINO TRANSFERASE 17 IU/L (15-46); BILIRUBIN,INDIRECT 0.1 mg/dl (0-1.1); BILIRUBIN,TOTAL 0.1 mg/dl (0.2-1.3); BLOOD UREA NITROGEN 93 mg/dl (7-20); CALCIUM 7.9 mg/dl (8.4-10.2); CARBON DIOXIDE 25 mmol/L (21-31); CHLORIDE 101 mmol/L (97-110); CREATININE 4.25 mg/dl (0.44-1.00); GLUCOSE 93 mg/dl (70-220); SODIUM 137 mmol/L (135-144); TOTAL PROTEIN 6.2 g/dl (6.1-8.1)
[2018-03-04] MEDS: CALCIUM ACETATE 667 MG CAP PO ×3 (08:30→17:43)
[2018-03-04] MEDS: LACTOBACILLUS RHAMNOSUS CAP PO ×2 (08:30→20:49)
[2018-03-04] MEDS: NIFEdipine (XL) 30 MG TAB PO (08:30)
[2018-03-04] MEDS ORDERED: VANCOMYCIN IV PER PHARMACY XX ×2 (08:30)
[2018-03-04] MEDS: CALCIUM/VITAMIN D (250/125) TAB PO ×2 (08:31→20:49)
[2018-03-04] MEDS: CINACALCET 30 MG TAB PO (08:31)
[2018-03-04] MEDS: predniSONE 20 MG TAB PO (08:31)
[2018-03-04] MEDS: METOPROLOL (XL) 25 MG TAB PO (08:31)
[2018-03-04] MEDS: GUAIFENESIN/DM (SR) TAB PO (08:31)
[2018-03-04] MEDS: DOCUSATE SODIUM 100 MG CAP PO (08:31)
[2018-03-04] MEDS: L ACIDOPHIL/B LACTIS/B LONGUM CAPSULE PO ×2 (08:31→20:49)
[2018-03-04] MEDS: FAMOTIDINE 20 MG TAB PO (08:31)
[2018-03-04] MEDS: TIOTROPIUM 18 MCG CAPSULE INHA DEV INH (08:32)
[2018-03-04] MEDS: FLUTICASONE/VILANTEROL 100-25 INH (08:32)
[2018-03-04] MEDS: HEPARIN 1000 UNITS/ML 10 ML INJ CATHETER (16:11)
[2018-03-04] MEDS: VANCOMYCIN 1.25 GM in SOD CHLORIDE 0.9% 250 ML IVPB (17:43)
[2018-03-04] MEDS: MONTELUKAST 10 MG TAB PO (20:49)
[2018-03-04] MEDS: ALLOPURINOL 100 MG TAB PO (20:49)
[2018-03-04] MEDS: LISINOPRIL 20 MG TAB PO (20:52)
[2018-03-05] MEDS: CALCIUM ACETATE 667 MG CAP PO ×3 (08:13→17:41)
[2018-03-05] MEDS: predniSONE 20 MG TAB PO (08:13)
[2018-03-05] MEDS: NIFEdipine (XL) 30 MG TAB PO (08:13)
[2018-03-05] MEDS: DOCUSATE SODIUM 100 MG CAP PO (08:13)
[2018-03-05] MEDS: LACTOBACILLUS RHAMNOSUS CAP PO (08:14)
[2018-03-05] MEDS: METOPROLOL (XL) 25 MG TAB PO (08:14)
[2018-03-05] MEDS: FAMOTIDINE 20 MG TAB PO (08:14)
[2018-03-05] MEDS: GUAIFENESIN/DM (SR) TAB PO (08:14)
[2018-03-05] MEDS: HYDROCODONE/APAP (10/325) TAB PO (08:15)
[2018-03-05] MEDS: TIOTROPIUM 18 MCG CAPSULE INHA DEV INH (08:15)
[2018-03-05] MEDS: CALCIUM/VITAMIN D (250/125) TAB PO (08:15)
[2018-03-05] MEDS: L ACIDOPHIL/B LACTIS/B LONGUM CAPSULE PO (08:15)
[2018-03-05] MEDS: CINACALCET 30 MG TAB PO (08:15)
[2018-03-05] MEDS: FLUTICASONE/VILANTEROL 100-25 INH (08:16)
[2018-03-06] MEDS ORDERED: ASPIRIN 81 MG TAB PO (09:00)
[2018-03-06] MEDS ORDERED: ENOXAPARIN 30 MG/0.3 ML SYG SC (09:00)
[2018-03-07] MEDS ORDERED: predniSONE 10 MG TAB PO (09:00)
[2018-03-19] MEDS ORDERED: hydrALAzine 20 MG INJ IV (10:30)
[2018-03-19] MEDS ORDERED: traMADol 50 MG TAB PO (11:30)
== END 2018-03-05 18:25 | disposition home health service (06) | DRG 871 ==
LOC: E/R 02:14 → MS2 09:52
PROC: 5A1D70Z Performance of Urinary Filtration, Intermittent, Less than 6 Hours Per Day (ICD-10-PCS; principal; 2018-02-23)
DX: A40.1 Sepsis due to streptococcus, group B (principal); J96.01 Acute respiratory failure with hypoxia; N18.6 End stage renal disease; N39.0 Urinary tract infection, site not specified; I12.0 Hypertensive chronic kidney disease with stage 5 chronic kidney disease or end stage renal disease; N25.81 Secondary hyperparathyroidism of renal origin; I27.81 Cor pulmonale (chronic); I27.29 Other secondary pulmonary hypertension; J43.2 Centrilobular emphysema; D63.1 Anemia in chronic kidney disease; E87.70 Fluid overload, unspecified; E79.0 Hyperuricemia without signs of inflammatory arthritis and tophaceous disease; F17.210 Nicotine dependence, cigarettes, uncomplicated; G89.29 Other chronic pain; J06.9 Acute upper respiratory infection, unspecified; J40 Bronchitis, not specified as acute or chronic; M16.11 Unilateral primary osteoarthritis, right hip; M48.061 Spinal stenosis, lumbar region without neurogenic claudication; M47.9 Spondylosis, unspecified; M81.0 Age-related osteoporosis without current pathological fracture; S73.191A Other sprain of right hip, initial encounter; X58.XXXA Exposure to other specified factors, initial encounter; Z99.2 Dependence on renal dialysis
CPT/HCPCS: 36415; 36600; 71045; 72148; 73721; 74176; 80048; 80053; 80061; 80202; 81001; 82550; 82553; 82803; 83036; 83605; 83690; 83735; 83880; 84100; 84439; 84443; 84480; 84484; 85025; 85610; 85651; 85730; 86140; 86430; 87040; 87086; 87340; 90935; 93005; 93306; 94640; 94644; 94664; 96374; 96375; 96376; 97110; 97116; 97161; 97530; 99285-25

== ENCOUNTER 2018-03-19 04:03 | Inpatient (IN) | payer MEDICARE, MEDICAID ==
[2018-03-19 05:11] LABS: ADD MAN DIFF? NO
[2018-03-19 05:14] LABS: WHITE BLOOD COUNT 7.2 10^3/ul (4.8-10.8)
[2018-03-19 05:14] LABS: BASOPHILS % 0.3 % (0.0-2.0); EOSINOPHILS # 0.1 10^3/ul (0.0-0.5); HEMATOCRIT 31.3 % (37.0-47.0); HEMOGLOBIN 9.4 g/dl (12.0-16.0); LYMPHOCYTES # 1.3 10^3/ul (0.8-2.9); LYMPHOCYTES % 18.3 % (15.0-51.0); MEAN CORPUSCULAR HEMOGLOBIN 29.6 pg (29.0-33.0); MEAN CORPUSCULAR VOLUME 98.4 fl (82.0-101.0); MEAN PLATELET VOLUME 10.3 fl (7.4-10.4); MONOCYTE # 0.8 10^3/ul (0.3-0.9); MONOCYTES % 11.6 % (0.0-11.0); NEUTROPHIL # 4.8 10^3/ul (1.6-7.5); NEUTROPHILS % 67.2 % (39.0-77.0); PLATELET COUNT 381 10^3/UL (140-415); RED BLOOD COUNT 3.18 10^6/ul (4.20-5.40); RED CELL DISTRIBUTION WIDTH 19.2 % (11.5-14.5)
[2018-03-19] MEDS: SODIUM CHLORIDE 0.9% 1L BAG IV* (05:15)
[2018-03-19 05:41] LABS: LACTIC ACID 0.7 mmol/L (0.5-2.0)
[2018-03-19 05:41] LABS: ALANINE AMINOTRANSFERASE 22 IU/L (13-69); ALBUMIN 3.7 g/dl (3.3-4.9); ALBUMIN/GLOBULIN RATIO 0.86; ALKALINE PHOSPHATASE 126 IU/L (42-121); ANION GAP 18 (8-16); ASPARTATE AMINO TRANSFERASE 17 IU/L (15-46); BLOOD UREA NITROGEN 60 mg/dl (7-20); CALCIUM 9.3 mg/dl (8.4-10.2); CARBON DIOXIDE 24 mmol/L (21-31); CHLORIDE 106 mmol/L (97-110); CREATININE 6.62 mg/dl (0.44-1.00); GLUCOSE 89 mg/dl (70-220); INR 1.02; PHOSPHORUS 6.3 mg/dl (2.5-4.9); POTASSIUM 5.3 mmol/L (3.5-5.1); PROTIME 13.5 Sec (11.9-14.9); PT RATIO 1.1; SODIUM 143 mmol/L (135-144)
[2018-03-19 05:42] LABS: PARTIAL THROMBOPLASTIN TIME 30.4 Sec (25.0-35.0)
[2018-03-19] MEDS: ONDANSETRON 4 MG INJ IV (06:19)
[2018-03-19] MEDS: NA POLYST SULFON 15 GM/60 ML BTL PO (06:20)
[2018-03-19] MEDS: morphine 2 MG INJ IV ×2 (06:20→21:04)
[2018-03-19 07:16] LABS: LACTIC ACID 0.9 mmol/L (0.5-2.0)
[2018-03-19 09:45] LABS: ADD UMIC YES; UR ASCORBIC ACID NEGATIVE (NEGATIVE); UR BACTERIA FEW /HPF (NONE SEEN); UR BILIRUBIN (Dip) NEGATIVE (NEGATIVE); UR BLOOD (Dip) 2+ mg/dL (NEGATIVE); UR CLARITY CLEAR (CLEAR); UR COLOR STRAW (YELLOW); UR GLUCOSE (Dip) NEGATIVE (NEGATIVE); UR KETONES (Dip) NEGATIVE (NEGATIVE); UR LEUKOCYTE ESTERASE (Dip) NEGATIVE Leu/ul (NEGATIVE); UR NITRITE (Dip) NEGATIVE (NEGATIVE); UR RBC 37 /HPF (0-5); UR SPECIFIC GRAVITY (Dip) 1.009 (1.003-1.030); UR SQUAMOUS EPITHELIAL CELL FEW /HPF (FEW); UR TOTAL PROTEIN (Dip) 2+ mg/dl (NEGATIVE); UR UROBILINOGEN (Dip) NEGATIVE (NEGATIVE); UR WBC 3 /HPF (0-5)
[2018-03-19 09:56] LABS: LACTIC ACID 0.9 mmol/L (0.5-2.0)
[2018-03-19] MEDS ORDERED: VANCOMYCIN IV PER PHARMACY XX (10:30)
[2018-03-19 12:12] LABS: VANCOMYCIN,RANDOM < 5.0 ug/ml
[2018-03-19] MEDS: VANCOMYCIN 1.25 GM in SOD CHLORIDE 0.9% 250 ML IVPB (14:18)
[2018-03-19] MEDS ORDERED: BISACODYL 10 MG SUPP PR (14:30)
[2018-03-19] MEDS ORDERED: ACETAMINOPHEN 650 MG SUPP PR (14:30)
[2018-03-19] MEDS ORDERED: ACETAMINOPHEN 325 MG TAB PO (14:30)
[2018-03-19] MEDS ORDERED: NACL 0.9% 3 ML SYG IV (14:30)
[2018-03-19] MEDS: HYDROCODONE/APAP (5/325) TAB PO (16:59)
[2018-03-19] MEDS: CALCIUM ACETATE 667 MG CAP PO (18:16)
[2018-03-20] MEDS: HYDROCODONE/APAP (5/325) TAB PO ×3 (00:26→16:09)
[2018-03-20] MEDS: HEPARIN 1000 UNITS/ML 10 ML INJ CATHETER (01:45)
[2018-03-20] MEDS: PANTOPRAZOLE 40 MG INJ IV (05:42)
[2018-03-20] MEDS ORDERED: PANTOPRAZOLE (EC) 40 MG TAB PO (07:00)
[2018-03-20 07:36] LABS: ADD MAN DIFF? NO
[2018-03-20 07:44] LABS: BASOPHILS % 0.4 % (0.0-2.0); EOSINOPHILS # 0.1 10^3/ul (0.0-0.5); EOSINOPHILS % 1.8 % (0.0-7.0); HEMATOCRIT 33.7 % (37.0-47.0); HEMOGLOBIN 10.2 g/dl (12.0-16.0); LYMPHOCYTES # 0.8 10^3/ul (0.8-2.9); LYMPHOCYTES % 11.7 % (15.0-51.0); MEAN CORPUSCULAR HGB CONC 30.3 g/dl (32.0-37.0); MEAN CORPUSCULAR VOLUME 95.7 fl (82.0-101.0); MEAN PLATELET VOLUME 10.3 fl (7.4-10.4); MONOCYTE # 0.7 10^3/ul (0.3-0.9); MONOCYTES % 9.8 % (0.0-11.0); NEUTROPHIL # 5.2 10^3/ul (1.6-7.5); NEUTROPHILS % 75.7 % (39.0-77.0); PLATELET COUNT 357 10^3/UL (140-415); RED BLOOD COUNT 3.52 10^6/ul (4.20-5.40); RED CELL DISTRIBUTION WIDTH 18.9 % (11.5-14.5)
[2018-03-20 07:44] LABS: WHITE BLOOD COUNT 6.8 10^3/ul (4.8-10.8)
[2018-03-20 08:09] LABS: ALANINE AMINOTRANSFERASE 16 IU/L (13-69); ALBUMIN 3.3 g/dl (3.3-4.9); ALBUMIN/GLOBULIN RATIO 0.86; ALKALINE PHOSPHATASE 121 IU/L (42-121); ANION GAP 13 (8-16); ASPARTATE AMINO TRANSFERASE 14 IU/L (15-46); BILIRUBIN,INDIRECT 0.1 mg/dl (0-1.1); BILIRUBIN,TOTAL 0.1 mg/dl (0.2-1.3); BLOOD UREA NITROGEN 20 mg/dl (7-20); CARBON DIOXIDE 28 mmol/L (21-31); CHLORIDE 103 mmol/L (97-110); CHOL/HDL RATIO 3.5 RATIO; CHOLESTEROL 156 mg/dl (100-200); CREATININE 3.41 mg/dl (0.44-1.00); GLUCOSE 95 mg/dl (70-220); HDL CHOLESTEROL 44 mg/dl (33-92); LDL CHOLESTEROL,CALCULATED 85 mg/dl; MAGNESIUM 1.7 mg/dl (1.7-2.5); PHOSPHORUS 4.6 mg/dl (2.5-4.9); POTASSIUM 4.4 mmol/L (3.5-5.1); SODIUM 140 mmol/L (135-144); TOTAL PROTEIN 7.1 g/dl (6.1-8.1); TRIGLYCERIDES 136 mg/dl (0-149)
[2018-03-20 08:25] LABS: FREE THYROXINE INDEX (Calc) 2.46 ug/ml (0.65-3.89); T3 UPTAKE 40.3 % (23.5-40.5); T4 (THYROXINE) 6.1 ug/dl (5.5-11.0)
[2018-03-20] MEDS: CALCIUM ACETATE 667 MG CAP PO ×3 (08:32→17:24)
[2018-03-20] MEDS: CINACALCET 30 MG TAB PO (08:32)
[2018-03-20] MEDS: DOCUSATE SODIUM 100 MG CAP PO (08:32)
[2018-03-20] MEDS: NIFEdipine (XL) 30 MG TAB PO (08:33)
[2018-03-20] MEDS: CALCIUM/VITAMIN D (250/125) TAB PO ×2 (08:33→20:09)
[2018-03-20] MEDS: TIOTROPIUM 18 MCG CAPSULE INHA DEV INH (08:34)
[2018-03-20] MEDS: FUROSEMIDE 40 MG TAB PO (08:35)
[2018-03-20] MEDS: LISINOPRIL 5 MG TAB PO (08:35)
[2018-03-20 08:38] LABS: THYROID STIMULATING HORMONE 0.484 MIU/L (0.465-4.680)
[2018-03-20 09:43] LABS: C-REACTIVE PROTEIN 12.9 mg/dl (0.0-0.9)
[2018-03-20 10:09] LABS: ERYTHROCYTE SEDIMENTATION RATE 120 mm/Hr (0-30)
[2018-03-20] MEDS: hydrALAzine 20 MG INJ IV (12:17)
[2018-03-20] MEDS: ONDANSETRON 4 MG INJ IV (12:36)
[2018-03-20] MEDS: morphine 2 MG INJ IV (21:24)
[2018-03-21] MEDS: PANTOPRAZOLE 40 MG INJ IV (05:32)
[2018-03-21 07:17] LABS: VANCOMYCIN,RANDOM 12.8 ug/ml
[2018-03-21] MEDS: HYDROCODONE/APAP (5/325) TAB PO ×2 (08:39→15:51)
[2018-03-21] MEDS: FUROSEMIDE 40 MG TAB PO (08:40)
[2018-03-21] MEDS: CALCIUM/VITAMIN D (250/125) TAB PO ×2 (08:41→21:55)
[2018-03-21] MEDS: CALCIUM ACETATE 667 MG CAP PO ×3 (08:41→18:06)
[2018-03-21] MEDS: TIOTROPIUM 18 MCG CAPSULE INHA DEV INH (08:41)
[2018-03-21] MEDS: NIFEdipine (XL) 30 MG TAB PO (08:41)
[2018-03-21] MEDS: LISINOPRIL 5 MG TAB PO (08:41)
[2018-03-21] MEDS: CINACALCET 30 MG TAB PO (08:41)
[2018-03-21] MEDS: VANCOMYCIN 1 GM 250 ML IVPB (11:43)
[2018-03-21] MEDS: traMADol 50 MG TAB PO ×2 (11:44→22:00)
[2018-03-21] MEDS: ONDANSETRON 4 MG INJ IV (12:09)
[2018-03-21] MEDS ORDERED: SODIUM CHLORIDE 0.9% 1L BAG IV (17:30)
[2018-03-21] MEDS ORDERED: ALBUMIN HUMAN 25% 50 ML IV (17:30)
[2018-03-21] MEDS ORDERED: HEPARIN 1000 UNITS/ML 10 ML INJ CATHETER (17:30)
[2018-03-21] MEDS: LACTOBACILLUS RHAMNOSUS CAP PO (21:55)
[2018-03-22] MEDS: MAGNESIUM HYDROXIDE 30ML CUP PO (04:05)
[2018-03-22] MEDS: NIFEdipine (XL) 30 MG TAB PO (07:58)
[2018-03-22] MEDS: LISINOPRIL 5 MG TAB PO (07:58)
[2018-03-22 08:17] LABS: ABNORMAL IP MESSAGE 1; ADD MAN DIFF? NO; BASOPHILS % 0.3 % (0.0-2.0); EOSINOPHILS # 0.1 10^3/ul (0.0-0.5); EOSINOPHILS % 1.8 % (0.0-7.0); HEMATOCRIT 29.6 % (37.0-47.0); HEMOGLOBIN 9.3 g/dl (12.0-16.0); LYMPHOCYTES # 0.5 10^3/ul (0.8-2.9); LYMPHOCYTES % 7.7 % (15.0-51.0); MEAN CORPUSCULAR HGB CONC 31.4 g/dl (32.0-37.0); MEAN CORPUSCULAR VOLUME 95.5 fl (82.0-101.0); MEAN PLATELET VOLUME 10.1 fl (7.4-10.4); MONOCYTE # 0.4 10^3/ul (0.3-0.9); MONOCYTES % 5.8 % (0.0-11.0); NEUTROPHIL # 5.2 10^3/ul (1.6-7.5); NEUTROPHILS % 83.4 % (39.0-77.0); PLATELET COUNT 358 10^3/UL (140-415); RED CELL DISTRIBUTION WIDTH 17.9 % (11.5-14.5)
[2018-03-22 08:17] LABS: WHITE BLOOD COUNT 6.2 10^3/ul (4.8-10.8)
[2018-03-22 08:32] LABS: POSITIVE DIFF @See below
[2018-03-22 08:34] LABS: INR 1.07; PT RATIO 1.1
[2018-03-22 08:40] LABS: ALANINE AMINOTRANSFERASE 14 IU/L (13-69); ALBUMIN 3.2 g/dl (3.3-4.9); ALBUMIN/GLOBULIN RATIO 0.86; ALKALINE PHOSPHATASE 101 IU/L (42-121); ANION GAP 13 (8-16); ASPARTATE AMINO TRANSFERASE 15 IU/L (15-46); BILIRUBIN,INDIRECT 0.2 mg/dl (0-1.1); BILIRUBIN,TOTAL 0.2 mg/dl (0.2-1.3); BLOOD UREA NITROGEN 52 mg/dl (7-20); CALCIUM 8.5 mg/dl (8.4-10.2); CARBON DIOXIDE 28 mmol/L (21-31); CHLORIDE 98 mmol/L (97-110); CREATININE 6.85 mg/dl (0.44-1.00); GLUCOSE 87 mg/dl (70-220); MAGNESIUM 1.7 mg/dl (1.7-2.5); PHOSPHORUS 5.5 mg/dl (2.5-4.9); POTASSIUM 4.8 mmol/L (3.5-5.1); SODIUM 134 mmol/L (135-144); TOTAL PROTEIN 6.9 g/dl (6.1-8.1)
[2018-03-22] MEDS: CINACALCET 30 MG TAB PO (08:50)
[2018-03-22] MEDS: DOCUSATE SODIUM 100 MG CAP PO (08:50)
[2018-03-22] MEDS: ENOXAPARIN 30 MG/0.3 ML SYG SC (08:50)
[2018-03-22] MEDS: CALCIUM ACETATE 667 MG CAP PO ×3 (08:50→16:55)
[2018-03-22] MEDS: FAMOTIDINE 20 MG TAB PO (08:50)
[2018-03-22] MEDS: LACTOBACILLUS RHAMNOSUS CAP PO ×2 (08:50→21:29)
[2018-03-22] MEDS: CALCIUM/VITAMIN D (250/125) TAB PO ×2 (08:50→21:29)
[2018-03-22] MEDS: FUROSEMIDE 40 MG TAB PO (08:51)
[2018-03-22] MEDS: TIOTROPIUM 18 MCG CAPSULE INHA DEV INH (08:51)
[2018-03-22] MEDS: traMADol 50 MG TAB PO (08:51)
[2018-03-22] MEDS: morphine LIQ (10 MG/5 ML) CUP PO ×2 (11:30→21:29)
[2018-03-22] MEDS: CEFTRIAXONE 2 GM/50 ML (PMX) 50 ML IVPB (11:39)
[2018-03-22] MEDS: HYDROCODONE/APAP (10/325) TAB PO (16:55)
[2018-03-23] MEDS: morphine LIQ (10 MG/5 ML) CUP PO (03:54)
[2018-03-23] MEDS: HYDROCODONE/APAP (10/325) TAB PO ×3 (06:11→18:15)
[2018-03-23] MEDS: CALCIUM ACETATE 667 MG CAP PO ×3 (08:57→18:10)
[2018-03-23] MEDS: traMADol 50 MG TAB PO ×2 (08:57→21:28)
[2018-03-23] MEDS: LISINOPRIL 5 MG TAB PO (08:57)
[2018-03-23] MEDS: FAMOTIDINE 20 MG TAB PO (08:57)
[2018-03-23] MEDS: TIOTROPIUM 18 MCG CAPSULE INHA DEV INH (08:58)
[2018-03-23] MEDS: NIFEdipine (XL) 30 MG TAB PO (08:58)
[2018-03-23] MEDS: CINACALCET 30 MG TAB PO (08:58)
[2018-03-23] MEDS: FUROSEMIDE 40 MG TAB PO (08:59)
[2018-03-23] MEDS: CALCIUM/VITAMIN D (250/125) TAB PO ×2 (08:59→21:28)
[2018-03-23] MEDS: LACTOBACILLUS RHAMNOSUS CAP PO ×2 (08:59→21:28)
[2018-03-23] MEDS ORDERED: METHYLPREDNISOLONE (MEDROL) DOSE PACK PO (09:00)
[2018-03-23] MEDS: ENOXAPARIN 30 MG/0.3 ML SYG SC (09:00)
[2018-03-23] MEDS: ONDANSETRON 4 MG INJ IV (09:06)
[2018-03-23 09:32] LABS: ADD MAN DIFF? NO
[2018-03-23 09:44] LABS: WHITE BLOOD COUNT 8.4 10^3/ul (4.8-10.8)
[2018-03-23 09:44] LABS: BASOPHILS % 0.4 % (0.0-2.0); EOSINOPHILS # 0.1 10^3/ul (0.0-0.5); EOSINOPHILS % 1.3 % (0.0-7.0); HEMATOCRIT 34.5 % (37.0-47.0); HEMOGLOBIN 10.4 g/dl (12.0-16.0); LYMPHOCYTES # 0.9 10^3/ul (0.8-2.9); LYMPHOCYTES % 10.5 % (15.0-51.0); MEAN CORPUSCULAR HEMOGLOBIN 29.1 pg (29.0-33.0); MEAN CORPUSCULAR HGB CONC 30.1 g/dl (32.0-37.0); MEAN CORPUSCULAR VOLUME 96.4 fl (82.0-101.0); MEAN PLATELET VOLUME 10.6 fl (7.4-10.4); MONOCYTE # 0.7 10^3/ul (0.3-0.9); MONOCYTES % 8.5 % (0.0-11.0); NEUTROPHIL # 6.6 10^3/ul (1.6-7.5); NEUTROPHILS % 78.2 % (39.0-77.0); PLATELET COUNT 409 10^3/UL (140-415); RED BLOOD COUNT 3.58 10^6/ul (4.20-5.40); RED CELL DISTRIBUTION WIDTH 17.8 % (11.5-14.5)
[2018-03-23 10:14] LABS: ALANINE AMINOTRANSFERASE 10 IU/L (13-69); ALBUMIN 3.6 g/dl (3.3-4.9); ALBUMIN/GLOBULIN RATIO 0.87; ALKALINE PHOSPHATASE 124 IU/L (42-121); ANION GAP 14 (8-16); ASPARTATE AMINO TRANSFERASE 17 IU/L (15-46); BILIRUBIN,INDIRECT 0.1 mg/dl (0-1.1); BILIRUBIN,TOTAL 0.1 mg/dl (0.2-1.3); BLOOD UREA NITROGEN 24 mg/dl (7-20); CARBON DIOXIDE 29 mmol/L (21-31); CHLORIDE 96 mmol/L (97-110); CREATININE 4.17 mg/dl (0.44-1.00); GLUCOSE 102 mg/dl (70-220); SODIUM 134 mmol/L (135-144); TOTAL PROTEIN 7.7 g/dl (6.1-8.1)
[2018-03-23] MEDS: CEFTRIAXONE 2 GM/50 ML (PMX) 50 ML IVPB (13:11)
[2018-03-23] MEDS ORDERED: ALBUMIN HUMAN 25% 50 ML IV (14:30)
[2018-03-23] MEDS ORDERED: SODIUM CHLORIDE 0.9% 1L BAG IV (14:30)
[2018-03-23] MEDS: METHYLPREDNISOLONE 4 MG TAB PO (16:33)
[2018-03-24] MEDS: HYDROCODONE/APAP (10/325) TAB PO ×2 (07:57→18:09)
[2018-03-24] MEDS: CALCIUM ACETATE 667 MG CAP PO ×3 (07:57→18:06)
[2018-03-24] MEDS: METHYLPREDNISOLONE 4 MG TAB PO ×4 (07:57→20:56)
[2018-03-24 08:06] LABS: ADD MAN DIFF? NO
[2018-03-24 08:09] LABS: BASOPHILS % 0.2 % (0.0-2.0); HEMATOCRIT 31.8 % (37.0-47.0); HEMOGLOBIN 9.8 g/dl (12.0-16.0); LYMPHOCYTES # 0.6 10^3/ul (0.8-2.9); MEAN CORPUSCULAR HEMOGLOBIN 29.3 pg (29.0-33.0); MEAN CORPUSCULAR HGB CONC 30.8 g/dl (32.0-37.0); MEAN CORPUSCULAR VOLUME 95.2 fl (82.0-101.0); MEAN PLATELET VOLUME 10.3 fl (7.4-10.4); MONOCYTE # 0.4 10^3/ul (0.3-0.9); NEUTROPHIL # 8.8 10^3/ul (1.6-7.5); PLATELET COUNT 381 10^3/UL (140-415); RED BLOOD COUNT 3.34 10^6/ul (4.20-5.40); RED CELL DISTRIBUTION WIDTH 16.8 % (11.5-14.5)
[2018-03-24 08:09] LABS: WHITE BLOOD COUNT 9.9 10^3/ul (4.8-10.8)
[2018-03-24 08:30] LABS: ANION GAP 15 (8-16); BLOOD UREA NITROGEN 41 mg/dl (7-20); CARBON DIOXIDE 27 mmol/L (21-31); CHLORIDE 97 mmol/L (97-110); CREATININE 5.49 mg/dl (0.44-1.00); GLUCOSE 113 mg/dl (70-220); POTASSIUM 5.6 mmol/L (3.5-5.1); SODIUM 133 mmol/L (135-144)
[2018-03-24] MEDS: ONDANSETRON 4 MG INJ IV (08:32)
[2018-03-24 08:33] LABS: VANCOMYCIN,RANDOM 12.9 ug/ml
[2018-03-24] MEDS: LACTOBACILLUS RHAMNOSUS CAP PO ×2 (09:00→20:56)
[2018-03-24] MEDS: FAMOTIDINE 20 MG TAB PO (09:00)
[2018-03-24] MEDS: CALCIUM/VITAMIN D (250/125) TAB PO ×2 (09:00→20:56)
[2018-03-24] MEDS: LISINOPRIL 5 MG TAB PO (09:00)
[2018-03-24] MEDS: ENOXAPARIN 30 MG/0.3 ML SYG SC (09:00)
[2018-03-24] MEDS: TIOTROPIUM 18 MCG CAPSULE INHA DEV INH (09:00)
[2018-03-24] MEDS: CINACALCET 30 MG TAB PO (09:00)
[2018-03-24] MEDS: FUROSEMIDE 40 MG TAB PO (09:00)
[2018-03-24] MEDS: NIFEdipine (XL) 30 MG TAB PO (09:00)
[2018-03-24] MEDS: HEPARIN 1000 UNITS/ML 10 ML INJ CATHETER (13:12)
[2018-03-24] MEDS: CEFTRIAXONE 2 GM/50 ML (PMX) 50 ML IVPB (14:26)
[2018-03-24] MEDS: VANCOMYCIN 1 GM 250 ML IVPB (17:17)
[2018-03-25] MEDS: LISINOPRIL 5 MG TAB PO (08:49)
[2018-03-25] MEDS: FUROSEMIDE 40 MG TAB PO (08:50)
[2018-03-25] MEDS: NIFEdipine (XL) 30 MG TAB PO (08:50)
[2018-03-25] MEDS: CALCIUM ACETATE 667 MG CAP PO ×3 (08:50→17:48)
[2018-03-25] MEDS: CINACALCET 30 MG TAB PO (08:50)
[2018-03-25] MEDS: CALCIUM/VITAMIN D (250/125) TAB PO ×2 (08:51→21:00)
[2018-03-25] MEDS: LACTOBACILLUS RHAMNOSUS CAP PO ×2 (08:51→20:59)
[2018-03-25] MEDS: FAMOTIDINE 20 MG TAB PO (08:51)
[2018-03-25] MEDS: METHYLPREDNISOLONE 4 MG TAB PO ×4 (08:51→21:00)
[2018-03-25] MEDS: ENOXAPARIN 30 MG/0.3 ML SYG SC (08:54)
[2018-03-25] MEDS: TIOTROPIUM 18 MCG CAPSULE INHA DEV INH (09:00)
[2018-03-25] MEDS: CEFTRIAXONE 2 GM/50 ML (PMX) 50 ML IVPB (12:21)
[2018-03-25] MEDS: hydrALAzine 20 MG INJ IV (13:52)
[2018-03-25] MEDS ORDERED: SODIUM CHLORIDE 0.9% 1L BAG IV (17:30)
[2018-03-25] MEDS ORDERED: ALBUMIN HUMAN 25% 50 ML IV (17:30)
[2018-03-25] MEDS ORDERED: HEPARIN 1000 UNITS/ML 10 ML INJ CATHETER (17:30)
[2018-03-26] MEDS: traMADol 50 MG TAB PO (06:41)
[2018-03-26] MEDS: METHYLPREDNISOLONE 4 MG TAB PO ×2 (06:41→15:40)
[2018-03-26 08:09] LABS: ADD MAN DIFF? NO
[2018-03-26 08:13] LABS: WHITE BLOOD COUNT 12.7 10^3/ul (4.8-10.8)
[2018-03-26 08:13] LABS: BASOPHILS % 0.3 % (0.0-2.0); EOSINOPHILS % 0.2 % (0.0-7.0); HEMATOCRIT 32.7 % (37.0-47.0); LYMPHOCYTES # 1.1 10^3/ul (0.8-2.9); LYMPHOCYTES % 8.3 % (15.0-51.0); MEAN CORPUSCULAR HEMOGLOBIN 29.5 pg (29.0-33.0); MEAN CORPUSCULAR HGB CONC 30.6 g/dl (32.0-37.0); MEAN CORPUSCULAR VOLUME 96.5 fl (82.0-101.0); MEAN PLATELET VOLUME 10.6 fl (7.4-10.4); MONOCYTE # 0.9 10^3/ul (0.3-0.9); MONOCYTES % 7.4 % (0.0-11.0); NEUTROPHIL # 10.4 10^3/ul (1.6-7.5); NEUTROPHILS % 82.1 % (39.0-77.0); PLATELET COUNT 427 10^3/UL (140-415); RED BLOOD COUNT 3.39 10^6/ul (4.20-5.40); RED CELL DISTRIBUTION WIDTH 17.2 % (11.5-14.5)
[2018-03-26 08:33] LABS: ANION GAP 17 (8-16); BLOOD UREA NITROGEN 90 mg/dl (7-20); CARBON DIOXIDE 24 mmol/L (21-31); CHLORIDE 100 mmol/L (97-110); CREATININE 5.39 mg/dl (0.44-1.00); GLUCOSE 107 mg/dl (70-220); SODIUM 135 mmol/L (135-144)
[2018-03-26] MEDS: CALCIUM/VITAMIN D (250/125) TAB PO (09:00)
[2018-03-26 09:16] LABS: ERYTHROCYTE SEDIMENTATION RATE 113 mm/Hr (0-30)
[2018-03-26] MEDS: FAMOTIDINE 20 MG TAB PO (10:52)
[2018-03-26] MEDS: CALCIUM ACETATE 667 MG CAP PO ×3 (10:53→18:00)
[2018-03-26] MEDS: LACTOBACILLUS RHAMNOSUS CAP PO (10:53)
[2018-03-26] MEDS: HYDROCODONE/APAP (10/325) TAB PO (10:53)
[2018-03-26 11:54] LABS: HEPATITIS B SURFACE ANTIGEN NEGATIVE (NEGATIVE)
[2018-03-26 12:12] LABS: HEPATITIS B SURFACE ANTIBODY POSITIVE (NEGATIVE)
[2018-03-26] MEDS: HEPARIN 1000 UNITS/ML 10 ML INJ CATHETER (13:35)
[2018-03-26] MEDS: CEFTRIAXONE 2 GM/50 ML (PMX) 50 ML IVPB (13:51)
[2018-03-26] MEDS: LISINOPRIL 5 MG TAB PO (13:54)
[2018-03-26] MEDS: TIOTROPIUM 18 MCG CAPSULE INHA DEV INH (13:55)
[2018-03-26] MEDS: CINACALCET 30 MG TAB PO (13:55)
[2018-03-26] MEDS: NIFEdipine (XL) 30 MG TAB PO (13:55)
[2018-03-26] MEDS: FUROSEMIDE 40 MG TAB PO (13:56)
[2018-03-26] MEDS: ENOXAPARIN 30 MG/0.3 ML SYG SC (13:59)
== END 2018-03-26 18:55 | disposition home health service (06) | DRG 871 ==
LOC: MS1 03-26 06:47 → E/R 04:03 → MS4 03-21 11:19
PROC: 5A1D70Z Performance of Urinary Filtration, Intermittent, Less than 6 Hours Per Day (ICD-10-PCS; principal; 2018-03-19)
DX: A40.1 Sepsis due to streptococcus, group B (principal); G93.40 Encephalopathy, unspecified; N18.6 End stage renal disease; N17.9 Acute kidney failure, unspecified; I12.0 Hypertensive chronic kidney disease with stage 5 chronic kidney disease or end stage renal disease; M46.27 Osteomyelitis of vertebra, lumbosacral region; N39.0 Urinary tract infection, site not specified; M48.07 Spinal stenosis, lumbosacral region; M51.37 Other intervertebral disc degeneration, lumbosacral region; J44.9 Chronic obstructive pulmonary disease, unspecified; I27.20 Pulmonary hypertension, unspecified; F17.200 Nicotine dependence, unspecified, uncomplicated; Z99.2 Dependence on renal dialysis; G89.4 Chronic pain syndrome; E21.3 Hyperparathyroidism, unspecified; D63.1 Anemia in chronic kidney disease; Z91.14 Patient's other noncompliance with medication regimen; E78.5 Hyperlipidemia, unspecified; I25.10 Atherosclerotic heart disease of native coronary artery without angina pectoris; E87.5 Hyperkalemia; M10.9 Gout, unspecified; J84.10 Pulmonary fibrosis, unspecified; Z72.0 Tobacco use
CPT/HCPCS: 36415; 71045; 80048; 80053; 80061; 80202; 81001; 83036; 83605; 83735; 84100; 84436; 84443; 84479; 84484; 85025; 85610; 85651; 85730; 86140; 86706; 87040; 87086; 87340; 90935; 93005; 97110; 97116; 97161; 97530; 99285-25

== ENCOUNTER 2018-04-12 10:34 | Emergency (ER) | payer MEDICARE, MEDICAID ==
[2018-04-12 11:42] LABS: ADD MAN DIFF? NO
[2018-04-12 11:43] LABS: ABNORMAL IP MESSAGE 1; BASOPHILS % 0.3 % (0.0-2.0); EOSINOPHILS # 0.1 10^3/ul (0.0-0.5); EOSINOPHILS % 1.1 % (0.0-7.0); HEMATOCRIT 31.1 % (37.0-47.0); HEMOGLOBIN 9.8 g/dl (12.0-16.0); IMMATURE GRANS #M 0.02 10^3/ul; IMMATURE GRANS % (M) 0.3 %; LYMPHOCYTES # 0.5 10^3/ul (0.8-2.9); LYMPHOCYTES % 6.9 % (15.0-51.0); MEAN CORPUSCULAR HEMOGLOBIN 30.2 pg (29.0-33.0); MEAN CORPUSCULAR HGB CONC 31.5 g/dl (32.0-37.0); MEAN CORPUSCULAR VOLUME 95.7 fl (82.0-101.0); MEAN PLATELET VOLUME 9.7 fl (7.4-10.4); MONOCYTE # 0.5 10^3/ul (0.3-0.9); MONOCYTES % 6.9 % (0.0-11.0); NEUTROPHIL # 5.5 10^3/ul (1.6-7.5); NEUTROPHILS % 84.5 % (39.0-77.0); PLATELET COUNT 310 10^3/UL (140-415); RED BLOOD COUNT 3.25 10^6/ul (4.20-5.40); RED CELL DISTRIBUTION WIDTH 19.2 % (11.5-14.5)
[2018-04-12 11:43] LABS: WHITE BLOOD COUNT 6.5 10^3/ul (4.8-10.8)
[2018-04-12 11:45] LABS: POSITIVE DIFF @See below
[2018-04-12 12:20] LABS: ANION GAP 14 (8-16); BLOOD UREA NITROGEN 28 mg/dl (7-20); CALCIUM 8.4 mg/dl (8.4-10.2); CARBON DIOXIDE 29 mmol/L (21-31); CHLORIDE 99 mmol/L (97-110); CREATININE 3.86 mg/dl (0.44-1.00); GLUCOSE 96 mg/dl (70-220); SODIUM 138 mmol/L (135-144)
== END 2018-04-12 14:01 | disposition home or self-care (01) ==
LOC: E/R 10:34
DX: D64.9 Anemia, unspecified (principal); I10 Essential (primary) hypertension; J44.9 Chronic obstructive pulmonary disease, unspecified; F17.210 Nicotine dependence, cigarettes, uncomplicated; Z79.82 Long term (current) use of aspirin; Z99.2 Dependence on renal dialysis
CPT/HCPCS: 30903; 36415; 80048; 85025; 99283-25

== ENCOUNTER 2018-04-13 11:32 | Emergency (ER) | payer MEDICARE, MEDICAID | END 2018-04-13 13:09 | disposition home or self-care (01) | LOC: FTE 11:32 | DX: R04.0 Epistaxis (principal); I10 Essential (primary) hypertension; J44.9 Chronic obstructive pulmonary disease, unspecified; Z79.82 Long term (current) use of aspirin; Z87.891 Personal history of nicotine dependence; Z99.2 Dependence on renal dialysis | CPT/HCPCS: 99283 ==

== ENCOUNTER 2018-06-11 21:12 | Inpatient (IN) | payer MEDICARE, MEDICAID ==
[2018-06-11 21:50] LABS: ADD MAN DIFF? NO
[2018-06-11 22:12] LABS: BASOPHILS % 0.5 % (0.0-2.0); EOSINOPHILS # 0.3 10^3/ul (0.0-0.5); EOSINOPHILS % 2.9 % (0.0-7.0); HEMATOCRIT 31.8 % (37.0-47.0); HEMOGLOBIN 9.8 g/dl (12.0-16.0); LYMPHOCYTES # 1.3 10^3/ul (0.8-2.9); LYMPHOCYTES % 14.5 % (15.0-51.0); MEAN CORPUSCULAR HEMOGLOBIN 30.4 pg (29.0-33.0); MEAN CORPUSCULAR HGB CONC 30.8 g/dl (32.0-37.0); MEAN CORPUSCULAR VOLUME 98.8 fl (82.0-101.0); MEAN PLATELET VOLUME 10.3 fl (7.4-10.4); MONOCYTE # 0.8 10^3/ul (0.3-0.9); MONOCYTES % 8.6 % (0.0-11.0); NEUTROPHIL # 6.5 10^3/ul (1.6-7.5); NEUTROPHILS % 73.2 % (39.0-77.0); PLATELET COUNT 309 10^3/UL (140-415); RED BLOOD COUNT 3.22 10^6/ul (4.20-5.40)
[2018-06-11 22:12] LABS: WHITE BLOOD COUNT 8.8 10^3/ul (4.8-10.8)
[2018-06-11 22:22] LABS: ANION GAP 18 (8-16); BLOOD UREA NITROGEN 77 mg/dl (7-20); CALCIUM 8.7 mg/dl (8.4-10.2); CARBON DIOXIDE 18 mmol/L (21-31); CHLORIDE 115 mmol/L (97-110); CREATININE 7.57 mg/dl (0.44-1.00); GLUCOSE 106 mg/dl (70-220); SODIUM 144 mmol/L (135-144)
[2018-06-11 22:33] LABS: POTASSIUM 6.6 mmol/L (3.5-5.1)
[2018-06-11] MEDS ORDERED: ACETAMINOPHEN 325 MG TAB PO (23:00)
[2018-06-11] MEDS: NA POLYST SULFON 15 GM/60 ML BTL PO (23:19)
[2018-06-11] MEDS: LABETALOL HCL 20MG INJ IV (23:20)
[2018-06-11] MEDS: NA BICARBONATE 8.4% 50 ML SYG IV (23:20)
[2018-06-11] MEDS: ONDANSETRON 4 MG INJ IV (23:21)
[2018-06-12] MEDS: ALBUTEROL 0.5% (NEB) 2.5 MG/0.5 ML AMP INH (00:01)
[2018-06-12] MEDS ORDERED: ALBUTEROL/IPRATROPIUM (NEB) 3 ML AMP HHN (00:30)
[2018-06-12] MEDS ORDERED: NACL 0.9% 3 ML SYG IV (00:30)
[2018-06-12] MEDS: hydrALAzine 20 MG INJ IV ×3 (00:32→17:12)
[2018-06-12] MEDS: HEPARIN 1000 UNITS/ML 10 ML INJ CATHETER ×2 (01:00→18:37)
[2018-06-12] MEDS: LISINOPRIL 20 MG TAB PO (02:36)
[2018-06-12] MEDS: SUMATRIPTAN 6 MG/0.5 ML INJ SC (03:55)
[2018-06-12] MEDS ORDERED: PENDING SANTYL ORDER FOR WOUND CARE XX (06:00)
[2018-06-12 06:28] LABS: ADD MAN DIFF? NO
[2018-06-12 06:39] LABS: BASOPHILS % 0.3 % (0.0-2.0); EOSINOPHILS # 0.2 10^3/ul (0.0-0.5); EOSINOPHILS % 1.8 % (0.0-7.0); HEMATOCRIT 33.2 % (37.0-47.0); HEMOGLOBIN 10.2 g/dl (12.0-16.0); LYMPHOCYTES # 1.2 10^3/ul (0.8-2.9); LYMPHOCYTES % 9.7 % (15.0-51.0); MEAN CORPUSCULAR HGB CONC 30.7 g/dl (32.0-37.0); MEAN CORPUSCULAR VOLUME 97.6 fl (82.0-101.0); MEAN PLATELET VOLUME 10.9 fl (7.4-10.4); MONOCYTE # 0.8 10^3/ul (0.3-0.9); MONOCYTES % 6.3 % (0.0-11.0); NEUTROPHIL # 9.7 10^3/ul (1.6-7.5); NEUTROPHILS % 81.6 % (39.0-77.0); PLATELET COUNT 275 10^3/UL (140-415); RED CELL DISTRIBUTION WIDTH 16.9 % (11.5-14.5)
[2018-06-12 06:39] LABS: WHITE BLOOD COUNT 11.9 10^3/ul (4.8-10.8)
[2018-06-12 07:07] LABS: ALANINE AMINOTRANSFERASE 15 IU/L (13-69); ALBUMIN 3.2 g/dl (3.3-4.9); ALBUMIN/GLOBULIN RATIO 0.69; ALKALINE PHOSPHATASE 96 IU/L (42-121); ANION GAP 21 (8-16); ASPARTATE AMINO TRANSFERASE 21 IU/L (15-46); BILIRUBIN,INDIRECT 0.1 mg/dl (0-1.1); BILIRUBIN,TOTAL 0.1 mg/dl (0.2-1.3); BLOOD UREA NITROGEN 80 mg/dl (7-20); CALCIUM 9.3 mg/dl (8.4-10.2); CARBON DIOXIDE 15 mmol/L (21-31); CHLORIDE 114 mmol/L (97-110); CREATININE 7.46 mg/dl (0.44-1.00); GLUCOSE 86 mg/dl (70-220); SODIUM 143 mmol/L (135-144); TOTAL PROTEIN 7.8 g/dl (6.1-8.1)
[2018-06-12 07:32] LABS: POTASSIUM 6.6 mmol/L (3.5-5.1)
[2018-06-12] MEDS: NA POLYST SULFON 15 GM/60 ML BTL PR (08:53)
[2018-06-12] MEDS: FUROSEMIDE 40 MG TAB PO (08:53)
[2018-06-12] MEDS: SALINE 0.65% 45 ML NAS SPRAY NASAL ×4 (08:53→22:00)
[2018-06-12] MEDS: ASPIRIN 81 MG TAB PO (08:53)
[2018-06-12] MEDS: LISINOPRIL 10 MG TAB PO (08:54)
[2018-06-12] MEDS: ACETAMINOPHEN 325 MG TAB PO ×2 (10:38→18:56)
[2018-06-12] MEDS: CALCIUM/VITAMIN D (250/125) TAB PO ×2 (10:38→22:00)
[2018-06-12] MEDS: CINACALCET 30 MG TAB PO (10:39)
[2018-06-12] MEDS: FAMOTIDINE 20 MG TAB PO (13:24)
[2018-06-12 13:30] LABS: HEPATITIS B SURFACE ANTIGEN NEGATIVE (NEGATIVE)
[2018-06-12] MEDS: HEPARIN 5,000 UNIT/0.5 ML VIAL SC ×2 (13:32→22:05)
[2018-06-12] MEDS: ONDANSETRON 4 MG INJ IV (15:42)
[2018-06-12] MEDS: LIDOCAINE 1% (MDV) 20 ML INJ SC (18:37)
[2018-06-12 20:07] LABS: ANION GAP 20 (8-16); BLOOD UREA NITROGEN 76 mg/dl (7-20); CARBON DIOXIDE 15 mmol/L (21-31); CHLORIDE 111 mmol/L (97-110); CREATININE 7.39 mg/dl (0.44-1.00); GLUCOSE 92 mg/dl (70-220); POTASSIUM 5.5 mmol/L (3.5-5.1); SODIUM 140 mmol/L (135-144)
[2018-06-12] MEDS ORDERED: ALBUMIN HUMAN 25% 100 ML IV (22:00)
[2018-06-12] MEDS: HYDROCODONE/APAP (5/325) TAB PO (22:01)
[2018-06-13 06:41] LABS: ADD MAN DIFF? NO; BASOPHILS % 0.3 % (0.0-2.0); EOSINOPHILS % 0.3 % (0.0-7.0); HEMATOCRIT 31.8 % (37.0-47.0); HEMOGLOBIN 10.1 g/dl (12.0-16.0); LYMPHOCYTES # 0.9 10^3/ul (0.8-2.9); LYMPHOCYTES % 7.7 % (15.0-51.0); MEAN CORPUSCULAR HEMOGLOBIN 30.1 pg (29.0-33.0); MEAN CORPUSCULAR HGB CONC 31.8 g/dl (32.0-37.0); MEAN CORPUSCULAR VOLUME 94.6 fl (82.0-101.0); MONOCYTE # 0.7 10^3/ul (0.3-0.9); MONOCYTES % 5.6 % (0.0-11.0); NEUTROPHIL # 10.1 10^3/ul (1.6-7.5); NEUTROPHILS % 85.6 % (39.0-77.0); PLATELET COUNT 292 10^3/UL (140-415); RED BLOOD COUNT 3.36 10^6/ul (4.20-5.40)
[2018-06-13 06:41] LABS: WHITE BLOOD COUNT 11.8 10^3/ul (4.8-10.8)
[2018-06-13 07:18] LABS: ANION GAP 15 (8-16); BLOOD UREA NITROGEN 32 mg/dl (7-20); CALCIUM 8.8 mg/dl (8.4-10.2); CARBON DIOXIDE 27 mmol/L (21-31); CHLORIDE 103 mmol/L (97-110); CREATININE 3.92 mg/dl (0.44-1.00); GLUCOSE 130 mg/dl (70-220); PHOSPHORUS 6.2 mg/dl (2.5-4.9); POTASSIUM 4.2 mmol/L (3.5-5.1); SODIUM 141 mmol/L (135-144)
[2018-06-13] MEDS ORDERED: HEPARIN 1000 UNITS/ML 10 ML INJ (08:17)
[2018-06-13] MEDS ORDERED: IODIXANOL LOCM 50 ML BTL (08:17)
[2018-06-13] MEDS ORDERED: HEPARIN 1000 UNITS/NS (A-LINE) 1,000 ML (08:17)
[2018-06-13] MEDS ORDERED: LIDOCAINE 1% (MDV) 20 ML INJ (08:17)
[2018-06-13] MEDS: SALINE 0.65% 45 ML NAS SPRAY NASAL ×4 (09:43→20:44)
[2018-06-13] MEDS: CINACALCET 30 MG TAB PO (09:44)
[2018-06-13] MEDS: LISINOPRIL 10 MG TAB PO (09:44)
[2018-06-13] MEDS: FUROSEMIDE 40 MG TAB PO (09:45)
[2018-06-13] MEDS: ASPIRIN 81 MG TAB PO (09:45)
[2018-06-13] MEDS: ONDANSETRON 4 MG INJ IV ×2 (09:45→17:53)
[2018-06-13] MEDS: FAMOTIDINE 20 MG TAB PO (09:45)
[2018-06-13] MEDS: HEPARIN 5,000 UNIT/0.5 ML VIAL SC ×2 (09:46→21:03)
[2018-06-13] MEDS: CALCIUM/VITAMIN D (250/125) TAB PO ×2 (09:48→20:44)
[2018-06-13] MEDS ORDERED: SODIUM CHLORIDE 0.9% 1L BAG IV (13:30)
[2018-06-13] MEDS ORDERED: ALBUMIN HUMAN 25% 50 ML IV (13:30)
[2018-06-13] MEDS: SEVELAMER CARBONATE 800 MG TABLET PO (17:46)
[2018-06-14] MEDS: SEVELAMER CARBONATE 800 MG TABLET PO ×3 (07:55→17:44)
[2018-06-14] MEDS: SALINE 0.65% 45 ML NAS SPRAY NASAL ×4 (09:00→20:40)
[2018-06-14] MEDS: HEPARIN 1000 UNITS/ML 10 ML INJ CATHETER (13:15)
[2018-06-14] MEDS: FAMOTIDINE 20 MG TAB PO (14:38)
[2018-06-14] MEDS: ASPIRIN 81 MG TAB PO (14:38)
[2018-06-14] MEDS: LISINOPRIL 10 MG TAB PO (14:39)
[2018-06-14] MEDS: CALCIUM/VITAMIN D (250/125) TAB PO ×2 (14:40→20:40)
[2018-06-14] MEDS: CINACALCET 30 MG TAB PO (14:40)
[2018-06-14] MEDS: FUROSEMIDE 40 MG TAB PO (14:40)
[2018-06-14] MEDS: HEPARIN 5,000 UNIT/0.5 ML VIAL SC ×2 (15:59→20:51)
[2018-06-14] MEDS: ACETAMINOPHEN 325 MG TAB PO (21:42)
[2018-06-15] MEDS ORDERED: SEVOFLURANE 15 MIN (07:00)
[2018-06-15] MEDS ORDERED: CEFAZOLIN 1 GM INJ (07:00)
[2018-06-15 07:02] LABS: ANION GAP 14 (8-16); BLOOD UREA NITROGEN 38 mg/dl (7-20); CARBON DIOXIDE 32 mmol/L (21-31); CHLORIDE 93 mmol/L (97-110); CREATININE 5.07 mg/dl (0.44-1.00); GLUCOSE 88 mg/dl (70-220); POTASSIUM 4.5 mmol/L (3.5-5.1); SODIUM 134 mmol/L (135-144)
[2018-06-15] MEDS: SEVELAMER CARBONATE 800 MG TABLET PO ×3 (07:55→18:34)
[2018-06-15] MEDS: LISINOPRIL 10 MG TAB PO (09:00)
[2018-06-15] MEDS: FUROSEMIDE 40 MG TAB PO (09:00)
[2018-06-15] MEDS: CINACALCET 30 MG TAB PO (09:00)
[2018-06-15] MEDS: FAMOTIDINE 20 MG TAB PO (09:00)
[2018-06-15] MEDS: CALCIUM/VITAMIN D (250/125) TAB PO ×2 (09:00→20:58)
[2018-06-15] MEDS: SALINE 0.65% 45 ML NAS SPRAY NASAL ×5 (09:00→21:05)
[2018-06-15] MEDS: HEPARIN 5,000 UNIT/0.5 ML VIAL SC (09:00)
[2018-06-15] MEDS: ASPIRIN 81 MG TAB PO (09:00)
[2018-06-15] MEDS ORDERED: HEPARIN 1000 UNITS/ML 10 ML INJ CATHETER (10:00)
[2018-06-15] MEDS ORDERED: SODIUM CHLORIDE 0.9% 1L BAG IV (10:00)
[2018-06-15] MEDS ORDERED: ALBUMIN HUMAN 25% 50 ML IV (10:00)
[2018-06-15] MEDS ORDERED: FENTAnyl 50 MCG/ML VIAL (13:17)
[2018-06-15] MEDS ORDERED: PROPOFOL 20 ML (13:17)
[2018-06-15] MEDS ORDERED: ROCURONIUM 50 MG INJ (13:17)
[2018-06-15] MEDS ORDERED: GLYCOPYRROLATE 0.4 MG INJ (13:17)
[2018-06-15] MEDS ORDERED: MIDAZOLAM 1 MG/ML 2 ML INJ (13:17)
[2018-06-15] MEDS ORDERED: LIDOCAINE 2% (SDV) 5 ML INJ (13:17)
[2018-06-15] MEDS ORDERED: NEOSTIGMINE 3 MG/3 ML SYRINGE (13:17)
[2018-06-15] MEDS ORDERED: ONDANSETRON 4 MG INJ (13:18)
[2018-06-15] MEDS ORDERED: DEXAMETHASONE 4 MG/ML 1 ML INJ (13:18)
[2018-06-15] MEDS: GELATIN SIZE 100 SPONGE (13:19)
[2018-06-15] MEDS: THROMBIN 5000 UNIT VIAL (13:19)
[2018-06-15] MEDS: HEPARIN 1000 UNITS/ML 10 ML INJ (13:20)
[2018-06-15] MEDS: LIDOCAINE 0.5% (MDV) 50 ML INJ (13:20)
[2018-06-15] MEDS ORDERED: LIDOCAINE 1% (MPF) 10 ML INJ (13:21)
[2018-06-15] MEDS ORDERED: OXYCODONE/ACETAMINOPHEN (5/325) TAB PO ×2 (13:30)
[2018-06-15] MEDS ORDERED: HYDROmorphONE 1 MG/5 ML IV SYRINGE IV ×3 (13:30)
[2018-06-15] MEDS ORDERED: MEPERIDINE 25 MG INJ IV (13:30)
[2018-06-15] MEDS ORDERED: FENTAnyl 50 MCG/ML VIAL IV ×2 (13:30)
[2018-06-15] MEDS ORDERED: MIDAZOLAM 1 MG/ML 2 ML INJ IV (13:30)
[2018-06-15] MEDS ORDERED: DIPHENHYDRAMINE 50 MG INJ IV (13:30)
[2018-06-15] MEDS ORDERED: LABETALOL HCL 20MG INJ IV (13:30)
[2018-06-15] MEDS ORDERED: hydrALAzine 20 MG INJ IV (13:30)
[2018-06-15] MEDS ORDERED: EPHEDrine SULFATE 50 MG/5 ML SYG IV (13:30)
[2018-06-15] MEDS ORDERED: ONDANSETRON 4 MG INJ IV (13:30)
[2018-06-15] MEDS ORDERED: morphine (1 MG/ML) 10ML SYRINGE IV ×3 (13:30)
[2018-06-15] MEDS ORDERED: ATROPINE 1 MG/10 ML SYRINGE IV (13:30)
[2018-06-16] MEDS: SEVELAMER CARBONATE 800 MG TABLET PO ×3 (08:24→17:17)
[2018-06-16] MEDS: CALCIUM/VITAMIN D (250/125) TAB PO ×2 (08:24→20:27)
[2018-06-16] MEDS: ASPIRIN 81 MG TAB PO (08:24)
[2018-06-16] MEDS: CINACALCET 30 MG TAB PO (08:24)
[2018-06-16] MEDS: SALINE 0.65% 45 ML NAS SPRAY NASAL ×4 (08:25→20:27)
[2018-06-16] MEDS: LISINOPRIL 10 MG TAB PO (08:25)
[2018-06-16] MEDS: CEPASTAT LOZENGE MT (11:13)
[2018-06-16 11:14] LABS: ADD MAN DIFF? NO
[2018-06-16 11:20] LABS: BASOPHILS % 0.1 % (0.0-2.0); EOSINOPHILS % 0.1 % (0.0-7.0); HEMATOCRIT 31.3 % (37.0-47.0); LYMPHOCYTES % 10.3 % (15.0-51.0); MEAN CORPUSCULAR HEMOGLOBIN 30.2 pg (29.0-33.0); MEAN CORPUSCULAR HGB CONC 31.9 g/dl (32.0-37.0); MEAN CORPUSCULAR VOLUME 94.6 fl (82.0-101.0); MEAN PLATELET VOLUME 10.6 fl (7.4-10.4); MONOCYTES % 10.6 % (0.0-11.0); NEUTROPHIL # 7.7 10^3/ul (1.6-7.5); NEUTROPHILS % 78.2 % (39.0-77.0); PLATELET COUNT 354 10^3/UL (140-415); RED BLOOD COUNT 3.31 10^6/ul (4.20-5.40); RED CELL DISTRIBUTION WIDTH 15.9 % (11.5-14.5)
[2018-06-16 11:20] LABS: WHITE BLOOD COUNT 9.8 10^3/ul (4.8-10.8)
[2018-06-16 11:39] LABS: ALANINE AMINOTRANSFERASE 16 IU/L (13-69); ALBUMIN 3.3 g/dl (3.3-4.9); ALBUMIN/GLOBULIN RATIO 0.73; ALKALINE PHOSPHATASE 101 IU/L (42-121); ANION GAP 12 (5-13); ASPARTATE AMINO TRANSFERASE 18 IU/L (15-46); BILIRUBIN,INDIRECT 0.1 mg/dl (0-1.1); BILIRUBIN,TOTAL 0.1 mg/dl (0.2-1.3); BLOOD UREA NITROGEN 52 mg/dl (7-20); CALCIUM 8.9 mg/dl (8.4-10.2); CARBON DIOXIDE 27 mmol/L (21-31); CHLORIDE 96 mmol/L (97-110); CREATININE 5.17 mg/dl (0.44-1.00); GLUCOSE 111 mg/dl (70-220); MAGNESIUM 2.1 mg/dl (1.7-2.5); PHOSPHORUS 6.5 mg/dl (2.5-4.9); POTASSIUM 4.5 mmol/L (3.5-5.1); SODIUM 135 mmol/L (135-144); TOTAL PROTEIN 7.8 g/dl (6.1-8.1)
[2018-06-16] MEDS: RISPERIDONE 2 MG TAB PO (13:00)
[2018-06-16] MEDS: HEPARIN 1000 UNITS/ML 10 ML INJ CATHETER (13:37)
[2018-06-16] MEDS: RISPERIDONE 1 MG TAB PO (13:54)
[2018-06-16] MEDS: ACETAMINOPHEN 325 MG TAB PO (23:45)
[2018-06-17] MEDS: CALCIUM/VITAMIN D (250/125) TAB PO (08:45)
[2018-06-17] MEDS: SEVELAMER CARBONATE 800 MG TABLET PO ×2 (08:46→11:52)
[2018-06-17] MEDS: ASPIRIN 81 MG TAB PO (08:46)
[2018-06-17] MEDS: SALINE 0.65% 45 ML NAS SPRAY NASAL ×2 (08:47→12:00)
[2018-06-17] MEDS: CINACALCET 30 MG TAB PO (08:47)
[2018-06-17] MEDS: RISPERIDONE 1 MG TAB PO (08:47)
[2018-06-17] MEDS: CEPASTAT LOZENGE MT (08:49)
[2018-06-17] MEDS: LISINOPRIL 10 MG TAB PO (09:00)
== END 2018-06-17 16:30 | disposition home or self-care (01) | DRG 264 ==
LOC: TEL 22:37 → E/R 21:12
PROC: 03180ZD Bypass Left Brachial Artery to Upper Arm Vein, Open Approach (ICD-10-PCS; principal; 2018-06-13 08:20)
PROC: 06HM33Z Insertion of Infusion Device into Right Femoral Vein, Percutaneous Approach (ICD-10-PCS; 2018-06-13 08:20)
PROC: 05PYX3Z Removal of Infusion Device from Upper Vein, External Approach (ICD-10-PCS; 2018-06-13 08:20)
PROC: B54BZZA Ultrasonography of Right Lower Extremity Veins, Guidance (ICD-10-PCS; 2018-06-13 08:20)
PROC: 0JH63XZ Insertion of Tunneled Vascular Access Device into Chest Subcutaneous Tissue and Fascia, Percutaneous Approach (ICD-10-PCS; 2018-06-13 08:20)
PROC: 02H633Z Insertion of Infusion Device into Right Atrium, Percutaneous Approach (ICD-10-PCS; 2018-06-13 08:20)
PROC: B214YZZ Fluoroscopy of Right Heart using Other Contrast (ICD-10-PCS; 2018-06-13 08:20)
PROC: 5A1D70Z Performance of Urinary Filtration, Intermittent, Less than 6 Hours Per Day (ICD-10-PCS; 2018-06-13 08:20)
DX: T82.42XA Displacement of vascular dialysis catheter, initial encounter (principal); N18.6 End stage renal disease; I12.0 Hypertensive chronic kidney disease with stage 5 chronic kidney disease or end stage renal disease; N25.81 Secondary hyperparathyroidism of renal origin; E87.5 Hyperkalemia; E78.5 Hyperlipidemia, unspecified; D63.1 Anemia in chronic kidney disease; F17.200 Nicotine dependence, unspecified, uncomplicated; F20.9 Schizophrenia, unspecified; G89.29 Other chronic pain; I16.0 Hypertensive urgency; I27.20 Pulmonary hypertension, unspecified; I25.10 Atherosclerotic heart disease of native coronary artery without angina pectoris; J44.9 Chronic obstructive pulmonary disease, unspecified; M54.9 Dorsalgia, unspecified; Z99.2 Dependence on renal dialysis; Z91.15 Patient's noncompliance with renal dialysis; Z79.82 Long term (current) use of aspirin
CPT/HCPCS: 71045; 80048; 80053; 83735; 84100; 85025; 87340; 90935; 93005; 93970; 94664; 97161; 99291-25

== ENCOUNTER 2018-07-29 18:40 | Inpatient (IN) | payer MEDICARE, MEDICAID ==
[2018-07-29 20:32] LABS: ADD MAN DIFF? NO
[2018-07-29 20:34] LABS: WHITE BLOOD COUNT 7.6 10^3/ul (4.8-10.8)
[2018-07-29 20:34] LABS: BASOPHILS % 0.4 % (0.0-2.0); EOSINOPHILS # 0.2 10^3/ul (0.0-0.5); EOSINOPHILS % 2.4 % (0.0-7.0); HEMATOCRIT 24.8 % (37.0-47.0); HEMOGLOBIN 7.4 g/dl (12.0-16.0); LYMPHOCYTES # 1.2 10^3/ul (0.8-2.9); MEAN CORPUSCULAR HEMOGLOBIN 30.5 pg (29.0-33.0); MEAN CORPUSCULAR HGB CONC 29.8 g/dl (32.0-37.0); MEAN CORPUSCULAR VOLUME 102.1 fl (82.0-101.0); MEAN PLATELET VOLUME 11.3 fl (7.4-10.4); MONOCYTE # 0.7 10^3/ul (0.3-0.9); MONOCYTES % 9.7 % (0.0-11.0); NEUTROPHIL # 5.2 10^3/ul (1.6-7.5); PLATELET COUNT 248 10^3/UL (140-415); RED BLOOD COUNT 2.43 10^6/ul (4.20-5.40); RED CELL DISTRIBUTION WIDTH 17.7 % (11.5-14.5)
[2018-07-29 20:50] LABS: ADD UMIC YES; UR ASCORBIC ACID NEGATIVE (NEGATIVE); UR BILIRUBIN (Dip) NEGATIVE (NEGATIVE); UR BLOOD (Dip) 1+ mg/dL (NEGATIVE); UR CLARITY SLIGHTLY CLOUDY (CLEAR); UR COLOR STRAW (YELLOW); UR GLUCOSE (Dip) NEGATIVE (NEGATIVE); UR KETONES (Dip) NEGATIVE (NEGATIVE); UR LEUKOCYTE ESTERASE (Dip) TRACE Leu/ul (NEGATIVE); UR MUCUS FEW /HPF (NONE SEEN); UR NITRITE (Dip) NEGATIVE (NEGATIVE); UR RBC 9 /HPF (0-5); UR SPECIFIC GRAVITY (Dip) 1.012 (1.003-1.030); UR SQUAMOUS EPITHELIAL CELL FEW /HPF (FEW); UR TOTAL PROTEIN (Dip) 2+ mg/dl (NEGATIVE); UR UROBILINOGEN (Dip) NEGATIVE (NEGATIVE); UR WBC 5 /HPF (0-5)
[2018-07-29 20:52] LABS: ALANINE AMINOTRANSFERASE 14 IU/L (13-69); ALBUMIN 3.4 g/dl (3.3-4.9); ALBUMIN/GLOBULIN RATIO 0.82; ALKALINE PHOSPHATASE 79 IU/L (42-121); ANION GAP 15 (5-13); ASPARTATE AMINO TRANSFERASE 13 IU/L (15-46); BILIRUBIN,INDIRECT 0.1 mg/dl (0-1.1); BILIRUBIN,TOTAL 0.1 mg/dl (0.2-1.3); BLOOD UREA NITROGEN 86 mg/dl (7-20); CALCIUM 7.7 mg/dl (8.4-10.2); CARBON DIOXIDE 10 mmol/L (21-31); CHLORIDE 121 mmol/L (97-110); CREATININE 8.56 mg/dl (0.44-1.00); Estimated GFR 5 mL/min (>60); GLUCOSE 112 mg/dl (70-220); LIPASE 611 U/L (23-300); SODIUM 146 mmol/L (135-144); TOTAL PROTEIN 7.5 g/dl (6.1-8.1)
[2018-07-29 21:00] LABS: POTASSIUM 6.2 mmol/L (3.5-5.1)
[2018-07-29 21:03] LABS: TROPONIN-I < 0.012 ng/ml (0.000-0.120)
[2018-07-29] MEDS: ALBUTEROL 0.5% (NEB) 2.5 MG/0.5 ML AMP INH (21:17)
[2018-07-29] MEDS ORDERED: DEXTROSE 50% 50 ML SYRINGE IV (21:30)
[2018-07-29] MEDS: DEXTROSE 50% 50 ML SYRINGE IV (21:34)
[2018-07-29] MEDS: FUROSEMIDE 40 MG INJ IV (21:34)
[2018-07-29] MEDS: INSULIN REGULAR, HUMAN 100 UNIT/1 ML 3ML VIAL IVP (21:42)
[2018-07-29] MEDS ORDERED: NACL 0.9% 3 ML SYG IV (22:00)
[2018-07-29] MEDS ORDERED: BISACODYL (EC) 5 MG TAB PO (22:00)
[2018-07-29] MEDS ORDERED: DOCUSATE SODIUM 100 MG CAP PO (22:00)
[2018-07-29 23:40] LABS: HEPATITIS B SURFACE ANTIGEN NEGATIVE (NEGATIVE)
[2018-07-30] MEDS: MANNITOL 25% 50 ML IV (02:43)
[2018-07-30] MEDS: HEPARIN 1000 UNITS/ML 10 ML INJ CATHETER (05:12)
[2018-07-30 06:15] LABS: WHITE BLOOD COUNT 6.9 10^3/ul (4.8-10.8)
[2018-07-30 06:15] LABS: ABNORMAL IP MESSAGE 1; HEMATOCRIT 20.8 % (37.0-47.0); MEAN CORPUSCULAR HEMOGLOBIN 30.9 pg (29.0-33.0); MEAN CORPUSCULAR HGB CONC 32.7 g/dl (32.0-37.0); MEAN CORPUSCULAR VOLUME 94.5 fl (82.0-101.0); MEAN PLATELET VOLUME 10.9 fl (7.4-10.4); PLATELET COUNT 217 10^3/UL (140-415); RED CELL DISTRIBUTION WIDTH 16.8 % (11.5-14.5)
[2018-07-30 06:23] LABS: ADD MAN DIFF? YES; POSITIVE DIFF @See below
[2018-07-30 06:24] LABS: HEMOGLOBIN 6.8 g/dl (12.0-16.0)
[2018-07-30 06:41] LABS: ALANINE AMINOTRANSFERASE 16 IU/L (13-69); ALBUMIN 3.1 g/dl (3.3-4.9); ALBUMIN/GLOBULIN RATIO 0.86; ALKALINE PHOSPHATASE 88 IU/L (42-121); ANION GAP 13 (5-13); ASPARTATE AMINO TRANSFERASE 13 IU/L (15-46); BILIRUBIN,INDIRECT 0.1 mg/dl (0-1.1); BILIRUBIN,TOTAL 0.1 mg/dl (0.2-1.3); BLOOD UREA NITROGEN 36 mg/dl (7-20); CALCIUM 8.3 mg/dl (8.4-10.2); CARBON DIOXIDE 25 mmol/L (21-31); CHLORIDE 101 mmol/L (97-110); CREATININE 3.41 mg/dl (0.44-1.00); Estimated GFR 13 mL/min (>60); GLUCOSE 76 mg/dl (70-220); MAGNESIUM 1.7 mg/dl (1.7-2.5); PHOSPHORUS 3.3 mg/dl (2.5-4.9); POTASSIUM 3.1 mmol/L (3.5-5.1); SODIUM 139 mmol/L (135-144); TOTAL PROTEIN 6.7 g/dl (6.1-8.1)
[2018-07-30 07:11] LABS: HEMOGLOBIN A1C 5.5 % (0-5.9)
[2018-07-30 09:05] LABS: ANISOCYTOSIS 1+ (0-0); BASOPHIL #M 0.2 10^3/ul (0.0-0.0); BASOPHILS % (M) 3 % (0-2); EOSINOPHILS % (M) 5 % (0-7); ERYTHROBLAST% (NRBC) (M) 1 % (0-0); LYMPHOCYTES #M 1.6 10^3/ul (0.8-2.9); LYMPHOCYTES % (M) 24 % (15-51); METAMYELOCYTES %M 1 % (0-0); MONOCYTE #M 0.4 10^3/ul (0.3-0.9); MONOCYTES % (M) 7 % (0-11); MYELOCYTES % (M) 1 % (0-0); PLATELET ESTIMATE NORMAL; POLYCHROMASIA 1+ (0-0); SEGMENTED NEUTROPHILS (M) % 60 % (39-77); SMUDGE%M 5 % (0-0)
[2018-07-30 09:36] LABS: IRON 102 ug/dl (35-150)
[2018-07-30 09:45] LABS: % IRON SATURATION 53 % SAT (22-52); TOTAL IRON BINDING CAPACITY 194 ug/dl (241-421)
[2018-07-30] MEDS: ASPIRIN (EC) 81 MG TAB PO (10:08)
[2018-07-30] MEDS: AMLODIPINE 5 MG TAB PO ×2 (10:08→21:19)
[2018-07-30] MEDS: LISINOPRIL 10 MG TAB PO (10:08)
[2018-07-30 11:06] LABS: IMMEDIATE SPIN CROSSMATCH 1 1
[2018-07-30] MEDS: SOD CHLORIDE 0.9% 250 ML IV* (11:15)
[2018-07-30 16:58] LABS: HAAIG REFLEX REFLEX FILED
[2018-07-30 18:15] LABS: HEPATITIS B SURFACE ANTIGEN NEGATIVE (NEGATIVE)
[2018-07-30 18:25] LABS: HEPATITIS B CORE ANTIBODY REACTIVE (NEGATIVE)
[2018-07-30 18:33] LABS: HEPATITIS C VIRAL ANTIBODY NEGATIVE (NEGATIVE)
[2018-07-31 06:56] LABS: ALANINE AMINOTRANSFERASE 20 IU/L (13-69); ALBUMIN 3.1 g/dl (3.3-4.9); ALBUMIN/GLOBULIN RATIO 0.93; ALKALINE PHOSPHATASE 79 IU/L (42-121); ANION GAP 10 (5-13); ASPARTATE AMINO TRANSFERASE 16 IU/L (15-46); BLOOD UREA NITROGEN 49 mg/dl (7-20); CALCIUM 7.1 mg/dl (8.4-10.2); CARBON DIOXIDE 24 mmol/L (21-31); CHLORIDE 104 mmol/L (97-110); CREATININE 4.67 mg/dl (0.44-1.00); Estimated GFR 9 mL/min (>60); GLUCOSE 81 mg/dl (70-220); PHOSPHORUS 5.9 mg/dl (2.5-4.9); POTASSIUM 4.3 mmol/L (3.5-5.1); SODIUM 138 mmol/L (135-144); TOTAL PROTEIN 6.4 g/dl (6.1-8.1)
[2018-07-31] MEDS: AMLODIPINE 5 MG TAB PO ×2 (08:22→22:11)
[2018-07-31] MEDS: ONDANSETRON 4 MG INJ IV (08:23)
[2018-07-31] MEDS: LISINOPRIL 10 MG TAB PO (08:26)
[2018-07-31] MEDS: MULTIVIT/CA CARB/B CMPLX/FA TAB PO (08:28)
[2018-07-31] MEDS: FOLIC ACID 1 MG TAB PO (08:28)
[2018-07-31] MEDS: ASPIRIN (EC) 81 MG TAB PO (08:28)
[2018-07-31 09:43] LABS: ADD MAN DIFF? NO
[2018-07-31 09:47] LABS: BASOPHILS % 0.6 % (0.0-2.0); EOSINOPHILS # 0.2 10^3/ul (0.0-0.5); EOSINOPHILS % 2.1 % (0.0-7.0); HEMATOCRIT 25.3 % (37.0-47.0); HEMOGLOBIN 8.4 g/dl (12.0-16.0); LYMPHOCYTES # 1.6 10^3/ul (0.8-2.9); MEAN CORPUSCULAR HEMOGLOBIN 30.3 pg (29.0-33.0); MEAN CORPUSCULAR HGB CONC 33.2 g/dl (32.0-37.0); MEAN CORPUSCULAR VOLUME 91.3 fl (82.0-101.0); MEAN PLATELET VOLUME 12.2 fl (7.4-10.4); MONOCYTE # 1.2 10^3/ul (0.3-0.9); MONOCYTES % 16.3 % (0.0-11.0); NEUTROPHIL # 4.2 10^3/ul (1.6-7.5); NEUTROPHILS % 58.2 % (39.0-77.0); PLATELET COUNT 230 10^3/UL (140-415); RED BLOOD COUNT 2.77 10^6/ul (4.20-5.40); RED CELL DISTRIBUTION WIDTH 19.9 % (11.5-14.5)
[2018-07-31 09:47] LABS: WHITE BLOOD COUNT 7.2 10^3/ul (4.8-10.8)
[2018-07-31 10:05] LABS: MAGNESIUM 1.9 mg/dl (1.7-2.5)
[2018-07-31] MEDS: HEPARIN 1000 UNITS/ML 10 ML INJ CATHETER (13:35)
[2018-08-01] MEDS: ACETAMINOPHEN 325 MG TAB PO ×2 (04:10→15:48)
[2018-08-01 06:06] LABS: ADD MAN DIFF? NO
[2018-08-01 06:13] LABS: BASOPHILS % 0.4 % (0.0-2.0); EOSINOPHILS # 0.2 10^3/ul (0.0-0.5); EOSINOPHILS % 2.3 % (0.0-7.0); HEMATOCRIT 27.6 % (37.0-47.0); LYMPHOCYTES # 1.1 10^3/ul (0.8-2.9); LYMPHOCYTES % 12.3 % (15.0-51.0); MEAN CORPUSCULAR HEMOGLOBIN 29.7 pg (29.0-33.0); MEAN CORPUSCULAR HGB CONC 32.6 g/dl (32.0-37.0); MEAN CORPUSCULAR VOLUME 91.1 fl (82.0-101.0); MEAN PLATELET VOLUME 10.7 fl (7.4-10.4); MONOCYTE # 1.1 10^3/ul (0.3-0.9); MONOCYTES % 12.7 % (0.0-11.0); NEUTROPHIL # 6.2 10^3/ul (1.6-7.5); NEUTROPHILS % 71.7 % (39.0-77.0); PLATELET COUNT 243 10^3/UL (140-415); RED BLOOD COUNT 3.03 10^6/ul (4.20-5.40); RED CELL DISTRIBUTION WIDTH 19.2 % (11.5-14.5)
[2018-08-01 06:13] LABS: WHITE BLOOD COUNT 8.6 10^3/ul (4.8-10.8)
[2018-08-01 07:01] LABS: ANION GAP 8 (5-13); BLOOD UREA NITROGEN 44 mg/dl (7-20); CALCIUM 8.1 mg/dl (8.4-10.2); CARBON DIOXIDE 28 mmol/L (21-31); CHLORIDE 102 mmol/L (97-110); CREATININE 3.69 mg/dl (0.44-1.00); Estimated GFR 12 mL/min (>60); GLUCOSE 91 mg/dl (70-220); MAGNESIUM 1.7 mg/dl (1.7-2.5); PHOSPHORUS 5.9 mg/dl (2.5-4.9); POTASSIUM 4.5 mmol/L (3.5-5.1); SODIUM 138 mmol/L (135-144)
[2018-08-01] MEDS: FOLIC ACID 1 MG TAB PO (07:54)
[2018-08-01] MEDS: AMLODIPINE 5 MG TAB PO ×3 (07:54→21:30)
[2018-08-01] MEDS: MULTIVIT/CA CARB/B CMPLX/FA TAB PO (07:54)
[2018-08-01] MEDS: ASPIRIN (EC) 81 MG TAB PO (07:54)
[2018-08-01] MEDS: LISINOPRIL 10 MG TAB PO ×2 (07:54→12:52)
[2018-08-01] MEDS ORDERED: hydrALAzine 20 MG INJ IV (12:00)
[2018-08-01] MEDS: HEPARIN 1000 UNITS/ML 10 ML INJ CATHETER (13:43)
[2018-08-01] MEDS: RISPERIDONE 2 MG TAB PO (15:46)
[2018-08-02 06:16] LABS: ADD MAN DIFF? NO
[2018-08-02 06:28] LABS: WHITE BLOOD COUNT 5.9 10^3/ul (4.8-10.8)
[2018-08-02 06:28] LABS: BASOPHIL # 0.1 10^3/ul (0.0-0.1); BASOPHILS % 0.8 % (0.0-2.0); EOSINOPHILS # 0.1 10^3/ul (0.0-0.5); EOSINOPHILS % 2.4 % (0.0-7.0); HEMATOCRIT 29.4 % (37.0-47.0); HEMOGLOBIN 9.4 g/dl (12.0-16.0); LYMPHOCYTES # 0.9 10^3/ul (0.8-2.9); LYMPHOCYTES % 15.7 % (15.0-51.0); MEAN CORPUSCULAR HEMOGLOBIN 29.7 pg (29.0-33.0); MEAN PLATELET VOLUME 10.5 fl (7.4-10.4); MONOCYTES % 16.1 % (0.0-11.0); NEUTROPHIL # 3.8 10^3/ul (1.6-7.5); NEUTROPHILS % 64.5 % (39.0-77.0); PLATELET COUNT 203 10^3/UL (140-415); RED BLOOD COUNT 3.16 10^6/ul (4.20-5.40); RED CELL DISTRIBUTION WIDTH 18.7 % (11.5-14.5)
[2018-08-02 07:03] LABS: ANION GAP 10 (5-13); BLOOD UREA NITROGEN 39 mg/dl (7-20); CARBON DIOXIDE 26 mmol/L (21-31); CHLORIDE 101 mmol/L (97-110); CREATININE 3.35 mg/dl (0.44-1.00); Estimated GFR 14 mL/min (>60); GLUCOSE 88 mg/dl (70-220); MAGNESIUM 1.7 mg/dl (1.7-2.5); PHOSPHORUS 5.3 mg/dl (2.5-4.9); POTASSIUM 4.7 mmol/L (3.5-5.1); SODIUM 137 mmol/L (135-144)
[2018-08-02] MEDS: RISPERIDONE 2 MG TAB PO (10:16)
[2018-08-02] MEDS: AMLODIPINE 5 MG TAB PO (10:16)
[2018-08-02] MEDS: MULTIVIT/CA CARB/B CMPLX/FA TAB PO (10:16)
[2018-08-02] MEDS: FOLIC ACID 1 MG TAB PO (10:17)
[2018-08-02] MEDS: ASPIRIN (EC) 81 MG TAB PO (10:18)
[2018-08-02] MEDS: LISINOPRIL 10 MG TAB PO (10:19)
[2018-08-03] MEDS ORDERED: LISINOPRIL 20 MG TAB PO (09:00)
== END 2018-08-02 15:30 | disposition home health service (06) | DRG 640 ==
LOC: TEL 21:31 → E/R 18:40
PROC: 5A1D70Z Performance of Urinary Filtration, Intermittent, Less than 6 Hours Per Day (ICD-10-PCS; principal; 2018-07-30)
PROC: 30233N1 Transfusion of Nonautologous Red Blood Cells into Peripheral Vein, Percutaneous Approach (ICD-10-PCS; 2018-07-30)
DX: E87.5 Hyperkalemia (principal); N18.6 End stage renal disease; I13.2 Hypertensive heart and chronic kidney disease with heart failure and with stage 5 chronic kidney disease, or end stage renal disease; E46 Unspecified protein-calorie malnutrition; I50.9 Heart failure, unspecified; Z99.2 Dependence on renal dialysis; Z91.15 Patient's noncompliance with renal dialysis; E87.2 Acidosis; Z68.22 Body mass index [BMI] 22.0-22.9, adult; D63.1 Anemia in chronic kidney disease; J44.9 Chronic obstructive pulmonary disease, unspecified; Z91.14 Patient's other noncompliance with medication regimen
CPT/HCPCS: 36415; 36430; 71045; 80048; 80053; 81001; 82728; 82962; 83036; 83540; 83690; 83735; 84100; 84484; 85025; 86704; 86709; 86803; 86850; 86900; 86901; 86920; 87081; 87086; 87340; 87400; 90686; 90935; 93005; 94644; 97161; 97164; 99291-25

== ENCOUNTER 2018-12-31 23:52 | Emergency (ER) | payer MEDICARE, MEDICAID ==
[2019-01-01 01:01] LABS: ADD MAN DIFF? NO
[2019-01-01 01:06] LABS: ABNORMAL IP MESSAGE 1; BASOPHILS % 0.2 % (0.0-2.0); EOSINOPHILS % 0.1 % (0.0-7.0); HEMATOCRIT 34.8 % (37.0-47.0); LYMPHOCYTES # 0.1 10^3/ul (0.8-2.9); LYMPHOCYTES % 0.9 % (15.0-51.0); MEAN CORPUSCULAR HEMOGLOBIN 30.5 pg (29.0-33.0); MEAN CORPUSCULAR HGB CONC 31.6 g/dl (32.0-37.0); MEAN CORPUSCULAR VOLUME 96.4 fl (82.0-101.0); MEAN PLATELET VOLUME 10.5 fl (7.4-10.4); MONOCYTE # 0.1 10^3/ul (0.3-0.9); MONOCYTES % 0.6 % (0.0-11.0); NEUTROPHIL # 12.4 10^3/ul (1.6-7.5); NEUTROPHILS % 97.7 % (39.0-77.0); PLATELET COUNT 267 10^3/UL (140-415); RED BLOOD COUNT 3.61 10^6/ul (4.20-5.40); RED CELL DISTRIBUTION WIDTH 13.5 % (11.5-14.5)
[2019-01-01 01:06] LABS: WHITE BLOOD COUNT 12.6 10^3/ul (4.8-10.8)
[2019-01-01 01:12] LABS: POSITIVE DIFF @See below
[2019-01-01] MEDS: SODIUM CHLORIDE 0.9% 1L BAG IV* (01:17)
[2019-01-01] MEDS: CEFEPIME 2GM/50 ML (PMX) 50 ML IVPB (01:18)
[2019-01-01 01:25] LABS: INR 1.06; PROTIME 13.9 Sec (11.9-14.9); PT RATIO 1.1
[2019-01-01 01:26] LABS: ALANINE AMINOTRANSFERASE 9 IU/L (13-69); ALBUMIN 3.9 g/dl (3.3-4.9); ALBUMIN/GLOBULIN RATIO 0.97; ALKALINE PHOSPHATASE 86 IU/L (42-121); ANION GAP 10 (5-13); ASPARTATE AMINO TRANSFERASE 22 IU/L (15-46); BILIRUBIN,INDIRECT 0.1 mg/dl (0-1.1); BILIRUBIN,TOTAL 0.1 mg/dl (0.2-1.3); BLOOD UREA NITROGEN 25 mg/dl (7-20); CALCIUM 8.3 mg/dl (8.4-10.2); CARBON DIOXIDE 33 mmol/L (21-31); CHLORIDE 93 mmol/L (97-110); CREATININE 3.35 mg/dl (0.44-1.00); GLUCOSE 125 mg/dl (70-220); PARTIAL THROMBOPLASTIN TIME 35.9 Sec (23.0-35.0); POTASSIUM 4.7 mmol/L (3.5-5.1); SODIUM 136 mmol/L (135-144); TOTAL PROTEIN 7.9 g/dl (6.1-8.1)
[2019-01-01 01:37] LABS: TROPONIN-I < 0.012 ng/ml (0.000-0.120)
[2019-01-01] MEDS: VANCOMYCIN 1 GM (PMX) 250 ML IVPB (02:22)
== END 2019-01-01 06:41 | disposition home or self-care (01) ==
LOC: E/R 23:52
DX: T82.838A Hemorrhage due to vascular prosthetic devices, implants and grafts, initial encounter (principal); N18.6 End stage renal disease; J44.9 Chronic obstructive pulmonary disease, unspecified; I13.2 Hypertensive heart and chronic kidney disease with heart failure and with stage 5 chronic kidney disease, or end stage renal disease; I50.9 Heart failure, unspecified; F17.210 Nicotine dependence, cigarettes, uncomplicated; Y71.2 Prosthetic and other implants, materials and accessory cardiovascular devices associated with adverse incidents; Z79.82 Long term (current) use of aspirin
CPT/HCPCS: 36415; 71045; 80053; 83605; 84484; 85025; 85610; 85730; 87040-91; 93005; 96374; 96375; 99285-25

== ENCOUNTER 2019-01-03 19:45 | Inpatient (IN) | payer MEDICARE, MEDICAID ==
[2019-01-03 20:43] LABS: ADD MAN DIFF? NO
[2019-01-03] MEDS: MEROPENEM 500MG/50 ML (PMX) 50 ML IVPB (20:43)
[2019-01-03 20:45] LABS: BASOPHILS % 0.4 % (0.0-2.0); EOSINOPHILS # 0.1 10^3/ul (0.0-0.5); EOSINOPHILS % 1.4 % (0.0-7.0); HEMATOCRIT 28.5 % (37.0-47.0); HEMOGLOBIN 9.2 g/dl (12.0-16.0); LYMPHOCYTES # 1.3 10^3/ul (0.8-2.9); LYMPHOCYTES % 16.3 % (15.0-51.0); MEAN CORPUSCULAR HEMOGLOBIN 30.8 pg (29.0-33.0); MEAN CORPUSCULAR HGB CONC 32.3 g/dl (32.0-37.0); MEAN CORPUSCULAR VOLUME 95.3 fl (82.0-101.0); MEAN PLATELET VOLUME 11.4 fl (7.4-10.4); MONOCYTE # 0.7 10^3/ul (0.3-0.9); MONOCYTES % 8.3 % (0.0-11.0); NEUTROPHIL # 5.7 10^3/ul (1.6-7.5); NEUTROPHILS % 72.8 % (39.0-77.0); PLATELET COUNT 230 10^3/UL (140-415); RED BLOOD COUNT 2.99 10^6/ul (4.20-5.40); RED CELL DISTRIBUTION WIDTH 13.7 % (11.5-14.5)
[2019-01-03 20:45] LABS: WHITE BLOOD COUNT 7.8 10^3/ul (4.8-10.8)
[2019-01-03 20:49] LABS: ADD UMIC YES; UR ASCORBIC ACID NEGATIVE (NEGATIVE); UR BACTERIA FEW /HPF (NONE SEEN); UR BILIRUBIN (Dip) NEGATIVE (NEGATIVE); UR BLOOD (Dip) 2+ mg/dL (NEGATIVE); UR CLARITY CLOUDY (CLEAR); UR COLOR YELLOW (YELLOW); UR GLUCOSE (Dip) NEGATIVE (NEGATIVE); UR KETONES (Dip) NEGATIVE (NEGATIVE); UR LEUKOCYTE ESTERASE (Dip) 1+ Leu/ul (NEGATIVE); UR NITRITE (Dip) NEGATIVE (NEGATIVE); UR RBC 35 /HPF (0-5); UR SPECIFIC GRAVITY (Dip) 1.008 (1.003-1.030); UR SQUAMOUS EPITHELIAL CELL MANY /HPF (FEW); UR TOTAL PROTEIN (Dip) 2+ mg/dl (NEGATIVE); UR UROBILINOGEN (Dip) NEGATIVE (NEGATIVE); UR WBC 14 /HPF (0-5)
[2019-01-03 21:04] LABS: ALANINE AMINOTRANSFERASE 13 IU/L (13-69); ALBUMIN 3.9 g/dl (3.3-4.9); ALBUMIN/GLOBULIN RATIO 0.88; ALKALINE PHOSPHATASE 123 IU/L (42-121); ANION GAP 12 (5-13); ASPARTATE AMINO TRANSFERASE 23 IU/L (15-46); BILIRUBIN,INDIRECT 0.3 mg/dl (0-1.1); BILIRUBIN,TOTAL 0.3 mg/dl (0.2-1.3); BLOOD UREA NITROGEN 42 mg/dl (7-20); CALCIUM 8.6 mg/dl (8.4-10.2); CARBON DIOXIDE 29 mmol/L (21-31); CHLORIDE 98 mmol/L (97-110); CREATININE 4.49 mg/dl (0.44-1.00); GLUCOSE 85 mg/dl (70-220); INR 1.01; PROTIME 13.4 Sec (11.9-14.9); SODIUM 139 mmol/L (135-144); TOTAL PROTEIN 8.3 g/dl (6.1-8.1)
[2019-01-03 21:05] LABS: PARTIAL THROMBOPLASTIN TIME 33.5 Sec (23.0-35.0)
[2019-01-03] MEDS: VANCOMYCIN 1 GM (PMX) 250 ML IVPB (21:11)
[2019-01-03 21:15] LABS: TROPONIN-I 0.017 ng/ml (0.000-0.120)
[2019-01-04] MEDS ORDERED: NACL 0.9% 3 ML SYG IV
[2019-01-04 00:43] LABS: LACTIC ACID 0.8 mmol/L (0.5-2.0)
[2019-01-04] MEDS: LABETALOL HCL 20MG INJ IV (02:10)
[2019-01-04] MEDS: ACETAMINOPHEN 325 MG TAB PO ×2 (05:35→23:28)
[2019-01-04 07:01] LABS: ADD MAN DIFF? NO
[2019-01-04 07:05] LABS: BASOPHILS % 0.7 % (0.0-2.0); EOSINOPHILS # 0.2 10^3/ul (0.0-0.5); EOSINOPHILS % 2.9 % (0.0-7.0); HEMATOCRIT 25.3 % (37.0-47.0); HEMOGLOBIN 8.1 g/dl (12.0-16.0); LYMPHOCYTES # 0.9 10^3/ul (0.8-2.9); LYMPHOCYTES % 15.6 % (15.0-51.0); MEAN CORPUSCULAR HEMOGLOBIN 30.5 pg (29.0-33.0); MEAN CORPUSCULAR VOLUME 95.1 fl (82.0-101.0); MEAN PLATELET VOLUME 11.3 fl (7.4-10.4); MONOCYTE # 0.8 10^3/ul (0.3-0.9); MONOCYTES % 12.8 % (0.0-11.0); NEUTROPHILS % 67.5 % (39.0-77.0); PLATELET COUNT 215 10^3/UL (140-415); RED BLOOD COUNT 2.66 10^6/ul (4.20-5.40); RED CELL DISTRIBUTION WIDTH 13.7 % (11.5-14.5)
[2019-01-04 07:35] LABS: ALANINE AMINOTRANSFERASE 14 IU/L (13-69); ALBUMIN 3.2 g/dl (3.3-4.9); ALBUMIN/GLOBULIN RATIO 0.84; ALKALINE PHOSPHATASE 96 IU/L (42-121); ANION GAP 11 (5-13); ASPARTATE AMINO TRANSFERASE 17 IU/L (15-46); BILIRUBIN,INDIRECT 0.1 mg/dl (0-1.1); BILIRUBIN,TOTAL 0.1 mg/dl (0.2-1.3); BLOOD UREA NITROGEN 45 mg/dl (7-20); CALCIUM 7.8 mg/dl (8.4-10.2); CARBON DIOXIDE 27 mmol/L (21-31); CHLORIDE 102 mmol/L (97-110); CREATININE 5.25 mg/dl (0.44-1.00); GLUCOSE 77 mg/dl (70-220); MAGNESIUM 2.1 mg/dl (1.7-2.5); POTASSIUM 4.1 mmol/L (3.5-5.1); SODIUM 140 mmol/L (135-144)
[2019-01-04] MEDS ORDERED: ALBUTEROL/IPRATROPIUM (NEB) 3 ML AMP HHN ×2 (09:30)
[2019-01-04] MEDS: MEROPENEM 500MG/50 ML (PMX) 50 ML IVPB ×2 (09:57→20:13)
[2019-01-04] MEDS: AMLODIPINE 5 MG TAB PO ×2 (09:57→20:07)
[2019-01-04] MEDS: HEPARIN 5,000 UNIT/1 ML VIAL SC ×2 (10:05→22:31)
[2019-01-04 10:21] LABS: HEMATOCRIT 24.7 % (37.0-47.0); HEMOGLOBIN 7.8 g/dl (12.0-16.0)
[2019-01-04] MEDS: ALBUTEROL/IPRATROPIUM (NEB) 3 ML AMP HHN ×2 (13:00→19:37)
[2019-01-04 17:11] LABS: HEPATITIS B SURFACE ANTIGEN NEGATIVE (NEGATIVE)
[2019-01-04] MEDS: hydrALAzine 20 MG INJ IV (22:41)
[2019-01-05] MEDS: hydrALAzine 20 MG INJ IV ×2 (04:03→17:26)
[2019-01-05] MEDS: ALBUTEROL/IPRATROPIUM (NEB) 3 ML AMP HHN ×3 (07:46→20:35)
[2019-01-05] MEDS: LISINOPRIL 10 MG TAB PO ×2 (09:20→14:33)
[2019-01-05] MEDS: AMLODIPINE 5 MG TAB PO ×2 (09:20→20:56)
[2019-01-05] MEDS: MULTIVIT/CA CARB/B CMPLX/FA TAB PO (09:20)
[2019-01-05] MEDS: MEROPENEM 500MG/50 ML (PMX) 50 ML IVPB (09:21)
[2019-01-05] MEDS ORDERED: FENTAnyl 50 MCG/ML VIAL (13:18)
[2019-01-05] MEDS ORDERED: MIDAZOLAM 1 MG/ML 2 ML INJ (13:19)
[2019-01-05] MEDS ORDERED: LIDOCAINE 1% (MDV) 20 ML INJ (14:03)
[2019-01-05] MEDS ORDERED: HEPARIN 1000 UNITS/NS (A-LINE) 1,000 ML (14:03)
[2019-01-05] MEDS ORDERED: IODIXANOL LOCM 100 ML BTL (14:03)
[2019-01-05] MEDS: EPOETIN ALFA-EPBX (ESRD) 3,000 UNIT/ML VIAL SC (16:48)
[2019-01-05] MEDS: ACETAMINOPHEN 325 MG TAB PO (20:56)
[2019-01-05] MEDS: HEPARIN 5,000 UNIT/1 ML VIAL SC (22:16)
[2019-01-06] MEDS: GUAIFENESIN/CODEINE 5ML CUP PO (00:57)
[2019-01-06] MEDS: HYDROCODONE/APAP (5/325) TAB PO (03:52)
[2019-01-06] MEDS: LEVOFLOXACIN 250 MG TAB PO (05:37)
[2019-01-06 07:16] LABS: ADD MAN DIFF? NO
[2019-01-06 07:23] LABS: BASOPHIL # 0.1 10^3/ul (0.0-0.1); BASOPHILS % 0.9 % (0.0-2.0); EOSINOPHILS # 0.2 10^3/ul (0.0-0.5); EOSINOPHILS % 3.1 % (0.0-7.0); HEMATOCRIT 27.3 % (37.0-47.0); HEMOGLOBIN 8.6 g/dl (12.0-16.0); LYMPHOCYTES # 0.7 10^3/ul (0.8-2.9); LYMPHOCYTES % 11.9 % (15.0-51.0); MEAN CORPUSCULAR HEMOGLOBIN 30.4 pg (29.0-33.0); MEAN CORPUSCULAR HGB CONC 31.5 g/dl (32.0-37.0); MEAN CORPUSCULAR VOLUME 96.5 fl (82.0-101.0); MEAN PLATELET VOLUME 10.7 fl (7.4-10.4); MONOCYTE # 0.5 10^3/ul (0.3-0.9); MONOCYTES % 9.7 % (0.0-11.0); NEUTROPHIL # 3.9 10^3/ul (1.6-7.5); NEUTROPHILS % 71.8 % (39.0-77.0); PLATELET COUNT 269 10^3/UL (140-415); RED BLOOD COUNT 2.83 10^6/ul (4.20-5.40); RED CELL DISTRIBUTION WIDTH 13.8 % (11.5-14.5)
[2019-01-06 07:23] LABS: WHITE BLOOD COUNT 5.5 10^3/ul (4.8-10.8)
[2019-01-06 07:44] LABS: ANION GAP 13 (5-13); BLOOD UREA NITROGEN 75 mg/dl (7-20); CALCIUM 8.4 mg/dl (8.4-10.2); CARBON DIOXIDE 22 mmol/L (21-31); CHLORIDE 104 mmol/L (97-110); CREATININE 7.19 mg/dl (0.44-1.00); GLUCOSE 89 mg/dl (70-220); MAGNESIUM 2.1 mg/dl (1.7-2.5); PHOSPHORUS 7.7 mg/dl (2.5-4.9); POTASSIUM 4.6 mmol/L (3.5-5.1); SODIUM 139 mmol/L (135-144)
[2019-01-06] MEDS: ALBUTEROL/IPRATROPIUM (NEB) 3 ML AMP HHN ×3 (08:06→20:46)
[2019-01-06] MEDS: MULTIVIT/CA CARB/B CMPLX/FA TAB PO (08:26)
[2019-01-06] MEDS: LISINOPRIL 20 MG TAB PO (08:26)
[2019-01-06] MEDS: AMLODIPINE 5 MG TAB PO ×2 (08:27→21:26)
[2019-01-06] MEDS: HEPARIN 5,000 UNIT/1 ML VIAL SC ×2 (08:38→21:31)
[2019-01-06] MEDS: FAMOTIDINE 20 MG INJ IV (18:39)
[2019-01-07 06:38] LABS: ADD MAN DIFF? NO
[2019-01-07 06:41] LABS: BASOPHILS % 0.5 % (0.0-2.0); EOSINOPHILS # 0.3 10^3/ul (0.0-0.5); EOSINOPHILS % 3.9 % (0.0-7.0); HEMATOCRIT 26.5 % (37.0-47.0); HEMOGLOBIN 8.4 g/dl (12.0-16.0); LYMPHOCYTES # 1.2 10^3/ul (0.8-2.9); LYMPHOCYTES % 19.2 % (15.0-51.0); MEAN CORPUSCULAR HEMOGLOBIN 30.7 pg (29.0-33.0); MEAN CORPUSCULAR HGB CONC 31.7 g/dl (32.0-37.0); MEAN CORPUSCULAR VOLUME 96.7 fl (82.0-101.0); MEAN PLATELET VOLUME 10.2 fl (7.4-10.4); MONOCYTES % 16.3 % (0.0-11.0); NEUTROPHIL # 3.7 10^3/ul (1.6-7.5); NEUTROPHILS % 57.8 % (39.0-77.0); PLATELET COUNT 232 10^3/UL (140-415); RED BLOOD COUNT 2.74 10^6/ul (4.20-5.40); RED CELL DISTRIBUTION WIDTH 13.8 % (11.5-14.5)
[2019-01-07 06:41] LABS: WHITE BLOOD COUNT 6.4 10^3/ul (4.8-10.8)
[2019-01-07 07:18] LABS: ANION GAP 11 (5-13); BLOOD UREA NITROGEN 51 mg/dl (7-20); CALCIUM 8.2 mg/dl (8.4-10.2); CARBON DIOXIDE 26 mmol/L (21-31); CHLORIDE 104 mmol/L (97-110); CREATININE 5.96 mg/dl (0.44-1.00); GLUCOSE 97 mg/dl (70-220); MAGNESIUM 2.1 mg/dl (1.7-2.5); PHOSPHORUS 6.6 mg/dl (2.5-4.9); POTASSIUM 4.8 mmol/L (3.5-5.1); SODIUM 141 mmol/L (135-144)
[2019-01-07] MEDS: FAMOTIDINE 20 MG TAB PO (08:38)
[2019-01-07] MEDS: MULTIVIT/CA CARB/B CMPLX/FA TAB PO (08:39)
[2019-01-07] MEDS: LISINOPRIL 20 MG TAB PO (08:39)
[2019-01-07] MEDS: AMLODIPINE 5 MG TAB PO ×2 (08:39→20:34)
[2019-01-07] MEDS: HEPARIN 5,000 UNIT/1 ML VIAL SC ×2 (08:57→20:44)
[2019-01-07] MEDS: ALBUTEROL/IPRATROPIUM (NEB) 3 ML AMP HHN ×3 (09:39→20:51)
[2019-01-07] MEDS: ONDANSETRON 4 MG INJ IV (13:05)
[2019-01-07] MEDS: EPOETIN ALFA-EPBX (ESRD) 3,000 UNIT/ML VIAL SC (17:08)
[2019-01-07] MEDS: GUAIFENESIN/CODEINE 5ML CUP PO (20:38)
[2019-01-08] MEDS: LEVOFLOXACIN 250 MG TAB PO (05:44)
[2019-01-08] MEDS: ALBUTEROL/IPRATROPIUM (NEB) 3 ML AMP HHN ×2 (07:57→13:14)
[2019-01-08 08:17] LABS: ADD MAN DIFF? NO
[2019-01-08 08:18] LABS: WHITE BLOOD COUNT 7.8 10^3/ul (4.8-10.8)
[2019-01-08 08:18] LABS: BASOPHIL # 0.1 10^3/ul (0.0-0.1); BASOPHILS % 0.6 % (0.0-2.0); EOSINOPHILS # 0.3 10^3/ul (0.0-0.5); EOSINOPHILS % 3.2 % (0.0-7.0); HEMATOCRIT 25.6 % (37.0-47.0); HEMOGLOBIN 7.9 g/dl (12.0-16.0); LYMPHOCYTES # 1.1 10^3/ul (0.8-2.9); LYMPHOCYTES % 13.6 % (15.0-51.0); MEAN CORPUSCULAR HEMOGLOBIN 30.4 pg (29.0-33.0); MEAN CORPUSCULAR HGB CONC 30.9 g/dl (32.0-37.0); MEAN CORPUSCULAR VOLUME 98.5 fl (82.0-101.0); MEAN PLATELET VOLUME 10.7 fl (7.4-10.4); MONOCYTE # 1.1 10^3/ul (0.3-0.9); MONOCYTES % 14.4 % (0.0-11.0); NEUTROPHIL # 5.2 10^3/ul (1.6-7.5); NEUTROPHILS % 65.8 % (39.0-77.0); PLATELET COUNT 261 10^3/UL (140-415); RED CELL DISTRIBUTION WIDTH 13.8 % (11.5-14.5)
[2019-01-08 08:43] LABS: ANION GAP 13 (5-13); BLOOD UREA NITROGEN 74 mg/dl (7-20); CALCIUM 8.3 mg/dl (8.4-10.2); CARBON DIOXIDE 24 mmol/L (21-31); CHLORIDE 102 mmol/L (97-110); CREATININE 7.16 mg/dl (0.44-1.00); GLUCOSE 87 mg/dl (70-220); MAGNESIUM 2.1 mg/dl (1.7-2.5); PHOSPHORUS 8.3 mg/dl (2.5-4.9); POTASSIUM 5.4 mmol/L (3.5-5.1); SODIUM 139 mmol/L (135-144)
[2019-01-08] MEDS: FAMOTIDINE 20 MG TAB PO (08:53)
[2019-01-08] MEDS: MULTIVIT/CA CARB/B CMPLX/FA TAB PO (08:53)
[2019-01-08] MEDS: AMLODIPINE 5 MG TAB PO (08:53)
[2019-01-08] MEDS: LISINOPRIL 20 MG TAB PO (08:54)
[2019-01-08] MEDS: HEPARIN 5,000 UNIT/1 ML VIAL SC (08:59)
[2019-01-08] MEDS: SEVELAMER CARBONATE 800 MG TABLET PO (13:20)
[2019-01-08] MEDS: SODIUM POLYSTYRENE 15 GM KIT (POWDER + SORBITOL) PO (13:20)
== END 2019-01-08 13:32 | disposition home or self-care (01) | DRG 252 ==
LOC: E/R 19:45 → TEL 22:45
PROVIDERS: Internal Medicine
PROC: 027V3ZZ Dilation of Superior Vena Cava, Percutaneous Approach (ICD-10-PCS; principal; 2019-01-05 13:30)
PROC: 05763ZZ Dilation of Left Subclavian Vein, Percutaneous Approach (ICD-10-PCS; 2019-01-05 13:30)
PROC: B51WYZZ Fluoroscopy of Dialysis Shunt/Fistula using Other Contrast (ICD-10-PCS; 2019-01-05 13:30)
PROC: 5A1D70Z Performance of Urinary Filtration, Intermittent, Less than 6 Hours Per Day (ICD-10-PCS; 2019-01-05 13:40)
DX: T82.858A Stenosis of other vascular prosthetic devices, implants and grafts, initial encounter (principal); N18.6 End stage renal disease; I13.0 Hypertensive heart and chronic kidney disease with heart failure and stage 1 through stage 4 chronic kidney disease, or unspecified chronic kidney disease; R78.81 Bacteremia; F20.9 Schizophrenia, unspecified; E78.5 Hyperlipidemia, unspecified; I16.0 Hypertensive urgency; E11.22 Type 2 diabetes mellitus with diabetic chronic kidney disease; J44.9 Chronic obstructive pulmonary disease, unspecified; D63.8 Anemia in other chronic diseases classified elsewhere; D53.9 Nutritional anemia, unspecified; I27.20 Pulmonary hypertension, unspecified; J06.9 Acute upper respiratory infection, unspecified; I50.9 Heart failure, unspecified; Z99.2 Dependence on renal dialysis; Z79.82 Long term (current) use of aspirin; Y83.2 Surgical operation with anastomosis, bypass or graft as the cause of abnormal reaction of the patient, or of later complication, without mention of misadventure at the time of the procedure; Z87.891 Personal history of nicotine dependence
CPT/HCPCS: 36415; 36901; 36907; 71045; 80048; 80053; 81001; 83605; 83735; 84100; 84484; 85014; 85018; 85025; 85610; 85730; 87040-91; 87070; 87081; 87086; 87340; 90935; 93005; 93931; 93971; 94640; 94664; 96374; 96375; 97162; 99285-25

== ENCOUNTER 2019-01-23 04:31 | Inpatient (IN) | payer MEDICARE, MEDICAID ==
[2019-01-23 05:22] LABS: ADD MAN DIFF? NO
[2019-01-23 05:28] LABS: BASOPHIL # 0.1 10^3/ul (0.0-0.1); BASOPHILS % 0.5 % (0.0-2.0); EOSINOPHILS # 0.3 10^3/ul (0.0-0.5); EOSINOPHILS % 2.4 % (0.0-7.0); HEMATOCRIT 31.6 % (37.0-47.0); HEMOGLOBIN 9.5 g/dl (12.0-16.0); LYMPHOCYTES % 8.7 % (15.0-51.0); MEAN CORPUSCULAR HEMOGLOBIN 31.8 pg (29.0-33.0); MEAN CORPUSCULAR HGB CONC 30.1 g/dl (32.0-37.0); MEAN CORPUSCULAR VOLUME 105.7 fl (82.0-101.0); MEAN PLATELET VOLUME 10.2 fl (7.4-10.4); MONOCYTE # 0.7 10^3/ul (0.3-0.9); NEUTROPHIL # 9.1 10^3/ul (1.6-7.5); PLATELET COUNT 340 10^3/UL (140-415); RED BLOOD COUNT 2.99 10^6/ul (4.20-5.40); RED CELL DISTRIBUTION WIDTH 16.8 % (11.5-14.5)
[2019-01-23 05:28] LABS: WHITE BLOOD COUNT 11.1 10^3/ul (4.8-10.8)
[2019-01-23 05:47] LABS: ANION GAP 11 (5-13); BLOOD UREA NITROGEN 81 mg/dl (7-20); CALCIUM 8.3 mg/dl (8.4-10.2); CARBON DIOXIDE 25 mmol/L (21-31); CHLORIDE 109 mmol/L (97-110); CREATININE 8.38 mg/dl (0.44-1.00); GLUCOSE 89 mg/dl (70-220); INR 1.08; PROTIME 14.1 Sec (11.9-14.9); PT RATIO 1.1; SODIUM 145 mmol/L (135-144)
[2019-01-23 05:48] LABS: PARTIAL THROMBOPLASTIN TIME 33.2 Sec (23.0-35.0)
[2019-01-23 05:56] LABS: B-TYPE NATRIURETIC PEPTIDE 9500 PG/ML (0-125)
[2019-01-23] MEDS ORDERED: ONDANSETRON 4 MG INJ IV ×2 (06:00→07:30)
[2019-01-23] MEDS ORDERED: NA BICARBONATE 8.4% 50 ML SYG IV (06:03)
[2019-01-23] MEDS: CA CHLORIDE 10% 10 ML SYRINGE IV (06:03)
[2019-01-23] MEDS: ALBUTEROL 0.5% (NEB) 2.5 MG/0.5 ML AMP INH (06:30)
[2019-01-23] MEDS ORDERED: NACL 0.9% 3 ML SYG IV (07:30)
[2019-01-23] MEDS ORDERED: ALBUTEROL/IPRATROPIUM (NEB) 3 ML AMP HHN (07:30)
[2019-01-23] MEDS: hydrALAzine 20 MG INJ IV (07:46)
[2019-01-23] MEDS: SODIUM POLYSTYRENE 15 GM KIT (POWDER + SORBITOL) PO (08:42)
[2019-01-23] MEDS: FAMOTIDINE 20 MG TAB PO (09:13)
[2019-01-23] MEDS: ASPIRIN (EC) 81 MG TAB PO (09:13)
[2019-01-23] MEDS: MULTIVIT/CA CARB/B CMPLX/FA TAB PO (09:13)
[2019-01-23] MEDS: LISINOPRIL 20 MG TAB PO (09:14)
[2019-01-23] MEDS: SEVELAMER CARBONATE 0.8 GM PKT PO ×3 (09:14→17:28)
[2019-01-23] MEDS: HEPARIN 5,000 UNIT/1 ML VIAL SC ×2 (09:20→20:41)
[2019-01-23] MEDS: AMLODIPINE 5 MG TAB PO (09:22)
[2019-01-23] MEDS: CALCIUM CHLORIDE 10% 1 GM in DEXTROSE 5% 100 ML IV ×2 (09:59→11:30)
[2019-01-23] MEDS ORDERED: CA CHLORIDE 10% 10 ML SYRINGE IV (11:30)
[2019-01-23 12:48] LABS: ANION GAP 11 (5-13); BLOOD UREA NITROGEN 78 mg/dl (7-20); CALCIUM 9.1 mg/dl (8.4-10.2); CARBON DIOXIDE 22 mmol/L (21-31); CHLORIDE 112 mmol/L (97-110); CREATININE 8.49 mg/dl (0.44-1.00); GLUCOSE 90 mg/dl (70-220); SODIUM 145 mmol/L (135-144)
[2019-01-23 13:13] LABS: POTASSIUM 6.3 mmol/L (3.5-5.1)
[2019-01-23] MEDS: NIFEdipine (XL) 60 MG TAB PO ×2 (15:18→20:39)
[2019-01-23] MEDS: ACETAMINOPHEN 325 MG TAB PO (15:20)
[2019-01-24 05:03] LABS: ADD MAN DIFF? NO
[2019-01-24 05:10] LABS: WHITE BLOOD COUNT 6.7 10^3/ul (4.8-10.8)
[2019-01-24 05:10] LABS: BASOPHILS % 0.4 % (0.0-2.0); EOSINOPHILS # 0.3 10^3/ul (0.0-0.5); EOSINOPHILS % 3.9 % (0.0-7.0); HEMATOCRIT 30.7 % (37.0-47.0); HEMOGLOBIN 9.6 g/dl (12.0-16.0); LYMPHOCYTES # 1.1 10^3/ul (0.8-2.9); MEAN CORPUSCULAR HEMOGLOBIN 31.3 pg (29.0-33.0); MEAN CORPUSCULAR HGB CONC 31.3 g/dl (32.0-37.0); MEAN PLATELET VOLUME 10.2 fl (7.4-10.4); MONOCYTE # 0.5 10^3/ul (0.3-0.9); MONOCYTES % 7.5 % (0.0-11.0); NEUTROPHIL # 4.8 10^3/ul (1.6-7.5); NEUTROPHILS % 71.8 % (39.0-77.0); PLATELET COUNT 331 10^3/UL (140-415); RED BLOOD COUNT 3.07 10^6/ul (4.20-5.40); RED CELL DISTRIBUTION WIDTH 17.2 % (11.5-14.5)
[2019-01-24 05:40] LABS: ALANINE AMINOTRANSFERASE 11 IU/L (13-69); ALBUMIN 3.8 g/dl (3.3-4.9); ALBUMIN/GLOBULIN RATIO 0.95; ALKALINE PHOSPHATASE 102 IU/L (42-121); ANION GAP 10 (5-13); ASPARTATE AMINO TRANSFERASE 20 IU/L (15-46); BILIRUBIN,INDIRECT 0.4 mg/dl (0-1.1); BILIRUBIN,TOTAL 0.4 mg/dl (0.2-1.3); BLOOD UREA NITROGEN 47 mg/dl (7-20); CALCIUM 8.2 mg/dl (8.4-10.2); CARBON DIOXIDE 28 mmol/L (21-31); CHLORIDE 98 mmol/L (97-110); CREATININE 5.68 mg/dl (0.44-1.00); GLUCOSE 88 mg/dl (70-220); POTASSIUM 3.9 mmol/L (3.5-5.1); SODIUM 136 mmol/L (135-144); TOTAL PROTEIN 7.8 g/dl (6.1-8.1)
[2019-01-24] MEDS: SEVELAMER CARBONATE 0.8 GM PKT PO ×3 (08:28→17:17)
[2019-01-24] MEDS: FAMOTIDINE 20 MG TAB PO (08:29)
[2019-01-24] MEDS: ASPIRIN (EC) 81 MG TAB PO (08:29)
[2019-01-24] MEDS: NIFEdipine (XL) 60 MG TAB PO ×2 (08:29→21:00)
[2019-01-24] MEDS: LISINOPRIL 20 MG TAB PO (08:30)
[2019-01-24] MEDS: MULTIVIT/CA CARB/B CMPLX/FA TAB PO (08:30)
[2019-01-24] MEDS: HEPARIN 5,000 UNIT/1 ML VIAL SC ×2 (09:53→21:00)
== END 2019-01-24 22:15 | disposition home or self-care (01) | DRG 640 ==
LOC: E/R 04:31 → 6WM 05:39
DX: E87.5 Hyperkalemia (principal); N18.6 End stage renal disease; I16.1 Hypertensive emergency; I50.30 Unspecified diastolic (congestive) heart failure; I13.2 Hypertensive heart and chronic kidney disease with heart failure and with stage 5 chronic kidney disease, or end stage renal disease; Z99.2 Dependence on renal dialysis; Z72.0 Tobacco use; D63.8 Anemia in other chronic diseases classified elsewhere; E83.51 Hypocalcemia; Z91.15 Patient's noncompliance with renal dialysis; I49.9 Cardiac arrhythmia, unspecified
CPT/HCPCS: 36415; 71045; 80048; 80053; 83605; 83735; 83880; 84484; 85025; 85610; 85730; 87040-91; 87081; 90935; 93005; 99285-25